=== PATIENT | female | born 1960 | race African-American/Black ===

== ENCOUNTER 2021-05-02 11:56 | Inpatient (IN) | payer MEDICAID ==
[~2021-05-02] VITALS: Ht 165.1 cm; Wt 79.4 kg
[2021-05-02] MEDS ORDERED: HYDRALAZINE 20MG/ML VIAL IV ONE (13:00)
[2021-05-02] MEDS ORDERED: NIFEDIPINE XL 90MG TAB PO ONE (13:00)
[2021-05-02] MEDS ORDERED: ACETAMINOPHEN 325MG TABLET PO ONE (13:00)
[2021-05-02 13:10] LABS: BASOPHILS % 1.2 % (0.0-2.0); EOSINOPHILS % 0.6 % (0.0-5.0); HEMATOCRIT. 35.7 % (36.0-48.0); HEMOGLOBIN. 11.4 g/dL (12.0-16.0); LYMPHOCYTES % 11.1 % (20.0-50.0); MEAN CORPUSCULAR HEMOGLOBIN 26.9 pg (28.0-32.0); MEAN CORPUSCULAR VOLUME 84.2 fL (81.0-99.0); MEAN PLATELET VOLUME 8.3 fl (7.4-10.4); MONOCYTES % 4.8 % (2.0-8.0); NEUTROPHILS % 82.3 % (40.0-76.0); PLATELET 367 x1000/uL (130-400); RED BLOOD CELL COUNT 4.24 mill/uL (4.2-5.4); RED CELL DISTRIBUTION WIDTH 15.5 % (11.6-14.6)
[2021-05-02 13:17] LABS: CHLORIDE 106 mEq/L (98-107)
[2021-05-02 13:20] LABS: PROTHROMBIN TIME 10.3 sec (9.6-11.0)
[2021-05-02] MEDS ORDERED: NITROGLYCERIN 50MG PREMIX 250 ML IV ONE (15:00)
[2021-05-02] MEDS: AZTREONAM 2 GM in DEXT 5% WATER 100 ML IV SCH (15:12)
[2021-05-02] MEDS: LINEZOLID 600 MG PREMIX 300 ML IV SCH (15:12)
[2021-05-02] MEDS ORDERED: MORPHINE SULFATE 4 MG/ML CPJ (NOT FOR IM USE) IV ONE (15:30)
[2021-05-02] MEDS ORDERED: INSULIN LISPRO 100 UNITS/ML SUBCUT SCH (22:15)
[2021-05-03] MEDS: PANTOPRAZOLE SODIUM 40 MG/VIAL IV SCH ×2 (00:02→09:23)
[2021-05-03] MEDS: MORPHINE SULFATE 2 MG/ML CPJ (NOT FOR IM USE) IV PRN (02:02)
[2021-05-03] MEDS: AZTREONAM 2 GM in DEXT 5% WATER 100 ML IV SCH (03:00)
[2021-05-03] MEDS: LINEZOLID 600 MG PREMIX 300 ML IV SCH (03:39)
[2021-05-03] MEDS: NITROGLYCERIN 50MG PREMIX 250 ML IV PRN ×2 (04:07→09:40)
[2021-05-03] MEDS ORDERED: ONDANSETRON HCL 4MG/2ML INJ IV ONE (07:15)
[2021-05-03] MEDS: CLONIDINE 0.2MG TABLET PO PRN ×2 (10:41→21:44)
[2021-05-03] MEDS ORDERED: ONDANSETRON HCL 4MG/2ML INJ IV PRN (10:45)
[2021-05-03] MEDS ORDERED: DEXTROSE 50% WATER 50ML SYRINGE IV PRN (10:45)
[2021-05-03] MEDS ORDERED: NA PHOS,M-B/NA PHOS,DI-BA ENEMA 118ML PR PRN (10:45)
[2021-05-03] MEDS ORDERED: LORAZEPAM 0.5MG TABLET PO PRN (10:45)
[2021-05-03] MEDS ORDERED: MAGNESIUM/ALUMINUM HYDROXIDE/SIMETHICONE 30ML UDC PO PRN (10:45)
[2021-05-03] MEDS ORDERED: ACETAMINOPHEN 650MG SUPP PR PRN (10:45)
[2021-05-03] MEDS: HEPARIN 5000 UNITS/ML VIAL SUBCUT SCH ×2 (11:00→21:46)
[2021-05-03] MEDS ORDERED: METRONIDAZOLE 500 MG PREMIX 100 ML IV SCH (11:00)
[2021-05-03] MEDS: BLOOD SUGAR DIAGNOSTIC STRIP TEST SCH ×3 (11:30→21:47)
[2021-05-03 14:27] LABS: BG BASE EXCESS 2.9 mmol/L (-2.0-2.0); BG CARBOXYHEMOGLOBIN 0.4 % (0.5-1.5); BG DEOXYHEMOGLOBIN 7.7 % (0.0-5.0); BG HCO3 ACT 27.7 mmol/L (22.0-26.0); BG METHEMOGLOBIN 0.5 % (0.0-1.5); BG OXYGEN SATURATION 92.2 % (92.0-98.5); BG OXYHEMOGLOBIN 91.4 % (94.0-97.0); BG PCO2 43.6 mmHg (35.0-45.0); BG PH 7.421 (7.350-7.450); BG PO2 64.6 mmHg (75.0-100.0); BG SAMPLE SITE LEFT RADIAL; BG TOTAL HEMOGLOBIN 9.8 g/dL (12.0-18.0); BG VENT MODE ROOM AIR
[2021-05-03 14:35] LABS: BASOPHILS % 1.5 % (0.0-2.0); EOSINOPHILS % 1.6 % (0.0-5.0); HEMATOCRIT. 26.8 % (36.0-48.0); HEMOGLOBIN. 8.8 g/dL (12.0-16.0); LYMPHOCYTES % 12.9 % (20.0-50.0); MEAN CORPUSCULAR HEMOGLOBIN 27.9 pg (28.0-32.0); MEAN CORPUSCULAR VOLUME 84.9 fL (81.0-99.0); MONOCYTES % 6.1 % (2.0-8.0); NEUTROPHILS % 77.9 % (40.0-76.0); PLATELET 284 x1000/uL (130-400); RED BLOOD CELL COUNT 3.16 mill/uL (4.2-5.4); RED CELL DISTRIBUTION WIDTH 15.2 % (11.6-14.6)
[2021-05-03 14:43] LABS: CHLORIDE 107 mEq/L (98-107)
[2021-05-03] MEDS ORDERED: NALOXONE HCL 0.4MG/ML VIAL IV PRN (14:45)
[2021-05-03 14:51] LABS: CREATINE KINASE 193 IU/L (26-192)
[2021-05-03 14:54] LABS: CREATINE KINASE MB FRACTION 3.7 ng/mL (0.5-3.6)
[2021-05-03 16:00] VITALS: BP_SYST 198; BP_DIAS 84; BP_DIAS 99
[2021-05-03] MEDS: HYDRALAZINE 20MG/ML VIAL IV PRN (16:52)
[2021-05-03] MEDS: DIPHENHYDRAMINE 50MG/ML VIAL IV PRN ×2 (16:52→21:44)
[2021-05-03] MEDS: INSULIN LISPRO 100 UNITS/ML SUBCUT SCH ×2 (16:53→21:48)
[2021-05-03] MEDS: ALBUTEROL 6.7GM HFA INHALER ORI SCH (18:00)
[2021-05-03 18:14] LABS: HEPATITIS B SURFACE ANTIGEN NEGATIVE
[2021-05-03] MEDS ORDERED: FOLI0.8T23 MT (18:47)
[2021-05-03] MEDS ORDERED: NIFE90TA60 PO (18:47)
[2021-05-03] MEDS ORDERED: GABA-529 MT (19:00)
[2021-05-03] MEDS ORDERED: ATOR20TA65 MT (19:00)
[2021-05-03] MEDS ORDERED: HYDR-4009 MT (19:00)
[2021-05-03] MEDS ORDERED: HYDR100T26 MT (19:00)
[2021-05-03] MEDS ORDERED: DILT30TA3 MT (19:00)
[2021-05-03] MEDS ORDERED: FERR325T6 MT (19:00)
[2021-05-03] MEDS ORDERED: CARI350T28 MT (19:00)
[2021-05-03] MEDS ORDERED: BENA40TA9 MT (19:00)
[2021-05-03 20:00] VITALS: BP 199/98
[2021-05-03] MEDS: METRONIDAZOLE 500 MG PREMIX 100 ML IV SCH (21:47)
[2021-05-04] VITALS: BP 162/78
[2021-05-04] MEDS: HYDRALAZINE 20MG/ML VIAL IV PRN ×2 (01:16→09:24)
[2021-05-04 02:22] LABS: CREATINE KINASE MB FRACTION 4.6 ng/mL (0.5-3.6)
[2021-05-04] MEDS: ALBUTEROL 6.7GM HFA INHALER ORI SCH (02:45)
[2021-05-04] MEDS: TEMAZEPAM 15MG CAPSULE PO PRN ×3 (03:37→21:30)
[2021-05-04 04:00] VITALS: BP 171/99
[2021-05-04] MEDS: IPRATROPIUM/ALBUTEROL 0.5-3(2.5)MG/3ML NEB HHN PRN ×3 (04:28→12:30)
[2021-05-04] MEDS: ACETYLCYSTEINE 100MG/ML 10% VIAL 4ML INH SCH ×3 (04:28→12:31)
[2021-05-04] MEDS: BLOOD SUGAR DIAGNOSTIC STRIP TEST SCH ×4 (06:19→21:27)
[2021-05-04] MEDS: INSULIN LISPRO 100 UNITS/ML SUBCUT SCH ×4 (06:20→21:19)
[2021-05-04 07:06] LABS: BASOPHILS % 1.4 % (0.0-2.0); EOSINOPHILS % 3.2 % (0.0-5.0); HEMATOCRIT. 28.5 % (36.0-48.0); HEMOGLOBIN. 9.3 g/dL (12.0-16.0); MEAN CORPUSCULAR VOLUME 85.8 fL (81.0-99.0); MEAN PLATELET VOLUME 8.8 fl (7.4-10.4); MONOCYTES % 8.3 % (2.0-8.0); NEUTROPHILS % 67.1 % (40.0-76.0); PLATELET 260 x1000/uL (130-400); RED BLOOD CELL COUNT 3.32 mill/uL (4.2-5.4)
[2021-05-04 07:30] LABS: CHLORIDE 108 mEq/L (98-107)
[2021-05-04 07:40] LABS: LDL CHOLESTEROL 72 mg/dL (5-100)
[2021-05-04 07:41] LABS: HDL CHOLESTEROL 41 mg/dL (40-59); T4 FREE 1.04 ng/dL (0.76-1.46)
[2021-05-04 08:00] VITALS: BP 195/87
[2021-05-04] MEDS: HEPARIN 5000 UNITS/ML VIAL SUBCUT SCH ×2 (08:34→21:31)
[2021-05-04] MEDS: PANTOPRAZOLE SODIUM 40 MG/VIAL IV SCH (08:34)
[2021-05-04] MEDS: CLONIDINE 0.2MG TABLET PO PRN (08:35)
[2021-05-04] MEDS: METRONIDAZOLE 500 MG PREMIX 100 ML IV SCH ×2 (08:35→21:30)
[2021-05-04] MEDS: DIPHENHYDRAMINE 50MG/ML VIAL IV PRN ×3 (08:48→21:31)
[2021-05-04] MEDS ORDERED: ASPIRIN 81MG EC TABLET PO SCH (09:00)
[2021-05-04 11:49] VITALS: BP 181/91
[2021-05-04] MEDS: NIFEDIPINE XL 90MG TAB PO SCH (12:21)
[2021-05-04] MEDS: BENAZEPRIL 10MG TABLET PO SCH (12:21)
[2021-05-04] MEDS: HYDRALAZINE HCL 100MG TABLET PO SCH ×2 (13:12→21:30)
[2021-05-04 16:00] VITALS: BP 153/69
[2021-05-04] MEDS: NITROGLYCERIN OINT 1GM/INCH UDPKT TD SCH ×2 (16:14→21:52)
[2021-05-04] MEDS: MORPHINE SULFATE 2 MG/ML CPJ (NOT FOR IM USE) IV PRN (16:14)
[2021-05-04] MEDS ORDERED: LEVOFLOXACIN 500MG PREMIX 100 ML IV NR (18:00)
[2021-05-04 20:00] VITALS: BP 201/90
[2021-05-04] MEDS: DILTIAZEM HCL 30MG TABLET PO SCH (21:30)
[2021-05-05] VITALS: BP 159/66
[2021-05-05] MEDS: IPRATROPIUM/ALBUTEROL 0.5-3(2.5)MG/3ML NEB HHN PRN ×4 (00:12→21:01)
[2021-05-05] MEDS: ACETYLCYSTEINE 100MG/ML 10% VIAL 4ML INH SCH ×3 (00:12→13:09)
[2021-05-05] MEDS: ALBUTEROL 6.7GM HFA INHALER ORI SCH (00:12)
[2021-05-05] MEDS: HYDROCODONE/ACETAMINOPHEN 5/325MG TABLET PO PRN ×2 (00:27→12:36)
[2021-05-05 04:00] VITALS: BP 174/72
[2021-05-05] MEDS: MORPHINE SULFATE 2 MG/ML CPJ (NOT FOR IM USE) IV PRN ×3 (04:28→21:40)
[2021-05-05] MEDS: INSULIN LISPRO 100 UNITS/ML SUBCUT SCH ×4 (06:55→22:54)
[2021-05-05] MEDS: BLOOD SUGAR DIAGNOSTIC STRIP TEST SCH ×4 (06:55→21:23)
[2021-05-05] MEDS: HYDRALAZINE HCL 100MG TABLET PO SCH ×3 (06:55→22:25)
[2021-05-05] MEDS: NITROGLYCERIN OINT 1GM/INCH UDPKT TD SCH ×3 (06:55→22:25)
[2021-05-05 07:11] LABS: BASOPHILS % 1.3 % (0.0-2.0); EOSINOPHILS % 2.6 % (0.0-5.0); HEMOGLOBIN. 9.1 g/dL (12.0-16.0); LYMPHOCYTES % 12.6 % (20.0-50.0); MEAN CORPUSCULAR HEMOGLOBIN 28.3 pg (28.0-32.0); MEAN CORPUSCULAR VOLUME 86.6 fL (81.0-99.0); MEAN PLATELET VOLUME 8.7 fl (7.4-10.4); MONOCYTES % 8.7 % (2.0-8.0); NEUTROPHILS % 74.8 % (40.0-76.0); PLATELET 247 x1000/uL (130-400); RED BLOOD CELL COUNT 3.23 mill/uL (4.2-5.4); RED CELL DISTRIBUTION WIDTH 15.3 % (11.6-14.6)
[2021-05-05] MEDS: DIPHENHYDRAMINE 50MG/ML VIAL IV PRN ×3 (07:49→21:30)
[2021-05-05 08:00] VITALS: BP 181/74
[2021-05-05] MEDS: PANTOPRAZOLE SODIUM 40 MG/VIAL IV SCH (08:41)
[2021-05-05] MEDS: NIFEDIPINE XL 90MG TAB PO SCH (08:42)
[2021-05-05] MEDS: BENAZEPRIL 10MG TABLET PO SCH (08:42)
[2021-05-05] MEDS: CLONIDINE 0.2MG TABLET PO PRN (08:42)
[2021-05-05] MEDS: METRONIDAZOLE 500 MG PREMIX 100 ML IV SCH (08:42)
[2021-05-05] MEDS: DILTIAZEM HCL 30MG TABLET PO SCH ×4 (08:42→23:07)
[2021-05-05] MEDS: HEPARIN 5000 UNITS/ML VIAL SUBCUT SCH ×2 (09:00→21:30)
[2021-05-05] MEDS ORDERED: SODIUM BICARBONATE 4% (2.4MEQ) 5ML VIAL IV ONE (09:58)
[2021-05-05 12:00] VITALS: BP 165/77
[2021-05-05] MEDS: DOCUSATE SODIUM 100MG CAPSULE PO PRN (12:36)
[2021-05-05 16:00] VITALS: BP 123/49
[2021-05-05 20:00] VITALS: BP 128/74
[2021-05-05] MEDS: METRONIDAZOLE 500MG TABLET PO SCH (21:27)
[2021-05-06] VITALS: BP 143/62
[2021-05-06] MEDS: ALBUTEROL 6.7GM HFA INHALER ORI SCH (02:32)
[2021-05-06] MEDS: DIPHENHYDRAMINE 50MG/ML VIAL IV PRN ×4 (02:39→21:46)
[2021-05-06] MEDS: TEMAZEPAM 15MG CAPSULE PO PRN (03:03)
[2021-05-06 04:00] VITALS: BP 149/68
[2021-05-06] MEDS: DILTIAZEM HCL 30MG TABLET PO SCH ×3 (05:51→18:54)
[2021-05-06] MEDS: HYDRALAZINE HCL 100MG TABLET PO SCH ×3 (05:52→21:10)
[2021-05-06] MEDS: NITROGLYCERIN OINT 1GM/INCH UDPKT TD SCH ×3 (05:52→23:11)
[2021-05-06] MEDS: BLOOD SUGAR DIAGNOSTIC STRIP TEST SCH ×4 (06:44→21:30)
[2021-05-06] MEDS: INSULIN LISPRO 100 UNITS/ML SUBCUT SCH ×4 (06:44→22:03)
[2021-05-06 08:00] VITALS: BP 138/81
[2021-05-06] MEDS: IPRATROPIUM/ALBUTEROL 0.5-3(2.5)MG/3ML NEB HHN PRN ×2 (08:49→14:52)
[2021-05-06] MEDS: ACETYLCYSTEINE 100MG/ML 10% VIAL 4ML INH SCH ×2 (08:49→14:52)
[2021-05-06] MEDS: MORPHINE SULFATE 2 MG/ML CPJ (NOT FOR IM USE) IV PRN ×2 (09:56→17:32)
[2021-05-06] MEDS: HEPARIN 5000 UNITS/ML VIAL SUBCUT SCH ×2 (09:58→21:15)
[2021-05-06] MEDS: METRONIDAZOLE 500MG TABLET PO SCH ×2 (09:59→21:24)
[2021-05-06] MEDS: BENAZEPRIL 10MG TABLET PO SCH (10:00)
[2021-05-06] MEDS: FAMOTIDINE 20MG/2ML VIAL IV SCH (10:00)
[2021-05-06 10:01] LABS: BASOPHILS % 0.9 % (0.0-2.0); EOSINOPHILS % 1.9 % (0.0-5.0); HEMATOCRIT. 29.1 % (36.0-48.0); HEMOGLOBIN. 9.3 g/dL (12.0-16.0); LYMPHOCYTES % 14.8 % (20.0-50.0); MEAN CORPUSCULAR HEMOGLOBIN 27.6 pg (28.0-32.0); MEAN PLATELET VOLUME 8.7 fl (7.4-10.4); NEUTROPHILS % 76.4 % (40.0-76.0); PLATELET 274 x1000/uL (130-400); RED BLOOD CELL COUNT 3.39 mill/uL (4.2-5.4); RED CELL DISTRIBUTION WIDTH 15.2 % (11.6-14.6)
[2021-05-06 12:00] VITALS: BP 158/85
[2021-05-06 16:00] VITALS: BP 188/90
[2021-05-06 16:01] LABS: HEPATITIS B SURFACE ANTIGEN NEGATIVE
[2021-05-06] MEDS: HYDRALAZINE 20MG/ML VIAL IV PRN (17:39)
[2021-05-06] MEDS ORDERED: LEVOFLOXACIN 250MG PREMIX 50 ML IV SCH (18:00)
[2021-05-06] MEDS: LEVOFLOXACIN 250MG TABLET PO SCH (18:55)
[2021-05-06 20:00] VITALS: BP 195/87
[2021-05-06] MEDS: CLONIDINE 0.2MG TABLET PO SCH (21:08)
[2021-05-06] MEDS: GUAIFENESIN 200MG/10ML SUGAR FREE UDC PO PRN (22:09)
[2021-05-07] VITALS: BP 180/88
[2021-05-07] MEDS: DILTIAZEM HCL 30MG TABLET PO SCH ×2 (00:14→07:46)
[2021-05-07] MEDS: ACETYLCYSTEINE 100MG/ML 10% VIAL 4ML INH SCH ×5 (01:03→21:35)
[2021-05-07] MEDS: IPRATROPIUM/ALBUTEROL 0.5-3(2.5)MG/3ML NEB HHN PRN ×4 (01:04→15:13)
[2021-05-07] MEDS: NITROGLYCERIN OINT 1GM/INCH UDPKT TD SCH ×3 (02:33→21:40)
[2021-05-07 04:00] VITALS: BP 180/90
[2021-05-07] MEDS: CLONIDINE 0.2MG TABLET PO SCH ×3 (06:05→21:35)
[2021-05-07] MEDS: BLOOD SUGAR DIAGNOSTIC STRIP TEST SCH ×4 (06:27→21:39)
[2021-05-07] MEDS: INSULIN LISPRO 100 UNITS/ML SUBCUT SCH ×4 (06:32→21:37)
[2021-05-07] MEDS: HYDRALAZINE HCL 100MG TABLET PO SCH ×3 (07:47→21:43)
[2021-05-07 08:00] VITALS: BP 176/86
[2021-05-07] MEDS: METRONIDAZOLE 500MG TABLET PO SCH ×2 (09:08→21:35)
[2021-05-07] MEDS: BENAZEPRIL 10MG TABLET PO SCH (09:18)
[2021-05-07] MEDS: HEPARIN 5000 UNITS/ML VIAL SUBCUT SCH ×2 (09:18→21:38)
[2021-05-07] MEDS: FAMOTIDINE 20MG/2ML VIAL IV SCH (09:19)
[2021-05-07] MEDS ORDERED: AMLODIPINE 5MG TABLET PO SCH (10:30)
[2021-05-07] MEDS: DIPHENHYDRAMINE 50MG/ML VIAL IV PRN ×3 (10:49→21:05)
[2021-05-07 12:00] VITALS: BP 159/75
[2021-05-07 16:00] VITALS: BP 181/79
[2021-05-07] MEDS: HYDRALAZINE 20MG/ML VIAL IV PRN (17:54)
[2021-05-07] MEDS ORDERED: BENZONATATE 100MG CAPSULE PO PRN (18:30)
[2021-05-07 20:00] VITALS: BP 169/78
[2021-05-07] MEDS: HYDROCODONE/ACETAMINOPHEN 5/325MG TABLET PO PRN (21:08)
[2021-05-07] MEDS: GUAIFENESIN 600MG ER TABLET PO SCH (21:48)
[2021-05-07] MEDS: TEMAZEPAM 15MG CAPSULE PO PRN (23:02)
[2021-05-08] VITALS: BP 156/82
[2021-05-08] MEDS: IPRATROPIUM/ALBUTEROL 0.5-3(2.5)MG/3ML NEB HHN PRN ×3 (01:29→16:00)
[2021-05-08 01:53] LABS: HEPATITIS B SURFACE ANTIGEN NEGATIVE
[2021-05-08 04:00] VITALS: BP 190/82
[2021-05-08] MEDS: HYDRALAZINE HCL 100MG TABLET PO SCH ×2 (06:13→13:37)
[2021-05-08] MEDS: CLONIDINE 0.2MG TABLET PO SCH (06:13)
[2021-05-08] MEDS: NITROGLYCERIN OINT 1GM/INCH UDPKT TD SCH ×2 (06:15→13:38)
[2021-05-08] MEDS: INSULIN LISPRO 100 UNITS/ML SUBCUT SCH ×4 (06:26→21:55)
[2021-05-08] MEDS: BLOOD SUGAR DIAGNOSTIC STRIP TEST SCH ×4 (07:10→21:20)
[2021-05-08 08:00] VITALS: BP 188/88
[2021-05-08] MEDS: ACETYLCYSTEINE 100MG/ML 10% VIAL 4ML INH SCH ×2 (08:23→16:00)
[2021-05-08] MEDS: CLONIDINE 0.2MG TABLET PO PRN (09:42)
[2021-05-08] MEDS: BENAZEPRIL 10MG TABLET PO SCH (09:42)
[2021-05-08] MEDS: METRONIDAZOLE 500MG TABLET PO SCH ×2 (09:42→21:19)
[2021-05-08] MEDS: GUAIFENESIN 600MG ER TABLET PO SCH ×2 (09:42→21:19)
[2021-05-08] MEDS: DIPHENHYDRAMINE 50MG/ML VIAL IV PRN ×2 (09:43→21:19)
[2021-05-08] MEDS: FAMOTIDINE 20MG/2ML VIAL IV SCH (09:43)
[2021-05-08] MEDS: HEPARIN 5000 UNITS/ML VIAL SUBCUT SCH ×2 (09:43→21:20)
[2021-05-08] MEDS ORDERED: AMLODIPINE 5MG TABLET PO SCH (09:45)
[2021-05-08] MEDS: HYDROCODONE/ACETAMINOPHEN 5/325MG TABLET PO PRN (09:56)
[2021-05-08 12:00] VITALS: BP 210/100
[2021-05-08] MEDS: LOSARTAN POTASSIUM 100 MG TABLET PO SCH (12:24)
[2021-05-08] MEDS: DILTIAZEM HCL 90MG TABLET PO SCH ×2 (12:24→18:00)
[2021-05-08] MEDS ORDERED: GABAPENTIN 100MG CAPSULE PO NR (13:15)
[2021-05-08] MEDS: CLONIDINE 0.3MG TABLET PO SCH (13:37)
[2021-05-08 16:00] VITALS: BP 140/64
[2021-05-08] MEDS: LEVOFLOXACIN 250MG TABLET PO SCH (18:09)
[2021-05-08 20:00] VITALS: BP 165/69
[2021-05-08] MEDS: ACETAMINOPHEN 325MG TABLET PO PRN (21:26)
[2021-05-08] MEDS: TEMAZEPAM 15MG CAPSULE PO PRN (21:26)
[2021-05-08] MEDS: HYDRALAZINE 20MG/ML VIAL IV PRN (21:34)
[2021-05-09] VITALS (8 sets, daily range): BP systolic 98–207; BP diastolic 52–90
[2021-05-09] MEDS: CLONIDINE 0.3MG TABLET PO SCH ×3 (03:12→14:51)
[2021-05-09] MEDS: NITROGLYCERIN OINT 1GM/INCH UDPKT TD SCH ×4 (03:13→20:54)
[2021-05-09] MEDS: HYDRALAZINE HCL 100MG TABLET PO SCH ×3 (03:16→14:52)
[2021-05-09] MEDS: DILTIAZEM HCL 90MG TABLET PO SCH ×4 (04:39→17:50)
[2021-05-09] MEDS: ACETAMINOPHEN 325MG TABLET PO PRN (04:56)
[2021-05-09] MEDS: HYDRALAZINE 20MG/ML VIAL IV PRN (05:47)
[2021-05-09] MEDS: BLOOD SUGAR DIAGNOSTIC STRIP TEST SCH ×4 (06:18→20:54)
[2021-05-09] MEDS: INSULIN LISPRO 100 UNITS/ML SUBCUT SCH ×4 (06:20→21:27)
[2021-05-09] MEDS ORDERED: MINOXIDIL 2.5MG TABLET PO SCH (06:45)
[2021-05-09] MEDS: MORPHINE SULFATE 2 MG/ML CPJ (NOT FOR IM USE) IV PRN ×4 (06:59→23:34)
[2021-05-09] MEDS: FAMOTIDINE 20MG TABLET PO SCH (09:08)
[2021-05-09] MEDS: BENAZEPRIL 10MG TABLET PO SCH (09:08)
[2021-05-09] MEDS: GUAIFENESIN 600MG ER TABLET PO SCH ×2 (09:08→20:53)
[2021-05-09] MEDS: LOSARTAN POTASSIUM 100 MG TABLET PO SCH (09:08)
[2021-05-09] MEDS: HEPARIN 5000 UNITS/ML VIAL SUBCUT SCH ×2 (09:11→20:53)
[2021-05-09] MEDS: DIPHENHYDRAMINE 50MG/ML VIAL IV PRN ×2 (12:39→23:28)
[2021-05-09] MEDS: GABAPENTIN 300MG CAPSULE PO SCH ×2 (14:51→20:53)
[2021-05-09] MEDS: MINOXIDIL 2.5MG TABLET PO SCH (14:51)
[2021-05-10] VITALS (7 sets, daily range): BP systolic 100–175; BP diastolic 44–79
[2021-05-10] MEDS: MINOXIDIL 2.5MG TABLET PO SCH ×4 (00:20→21:32)
[2021-05-10] MEDS: HYDRALAZINE HCL 100MG TABLET PO SCH ×4 (00:20→21:49)
[2021-05-10] MEDS: CLONIDINE 0.3MG TABLET PO SCH ×4 (00:21→21:49)
[2021-05-10] MEDS: NITROGLYCERIN OINT 1GM/INCH UDPKT TD SCH ×3 (05:55→21:25)
[2021-05-10] MEDS: DILTIAZEM HCL 90MG TABLET PO SCH ×2 (05:56)
[2021-05-10] MEDS: GABAPENTIN 300MG CAPSULE PO SCH ×3 (05:57→21:30)
[2021-05-10] MEDS: BLOOD SUGAR DIAGNOSTIC STRIP TEST SCH ×4 (06:06→21:38)
[2021-05-10] MEDS: INSULIN LISPRO 100 UNITS/ML SUBCUT SCH ×4 (06:07→21:53)
[2021-05-10] MEDS: FAMOTIDINE 20MG TABLET PO SCH (10:06)
[2021-05-10] MEDS: BENAZEPRIL 10MG TABLET PO SCH (10:07)
[2021-05-10] MEDS: GUAIFENESIN 600MG ER TABLET PO SCH ×2 (10:08→21:31)
[2021-05-10] MEDS: LOSARTAN POTASSIUM 100 MG TABLET PO SCH (10:08)
[2021-05-10] MEDS: HEPARIN 5000 UNITS/ML VIAL SUBCUT SCH ×2 (10:09→21:29)
[2021-05-10] MEDS: DILTIAZEM HCL 180MG CAPSULE CD 24HR PO SCH ×2 (10:19→21:31)
[2021-05-10] MEDS: DIPHENHYDRAMINE 50MG/ML VIAL IV PRN ×2 (10:19→21:44)
[2021-05-10 12:19] LABS: BASOPHILS % 1.3 % (0.0-2.0); EOSINOPHILS % 1.4 % (0.0-5.0); HEMATOCRIT. 28.6 % (36.0-48.0); HEMOGLOBIN. 9.1 g/dL (12.0-16.0); LYMPHOCYTES % 9.8 % (20.0-50.0); MEAN CORPUSCULAR HEMOGLOBIN 27.5 pg (28.0-32.0); MEAN CORPUSCULAR VOLUME 86.5 fL (81.0-99.0); MONOCYTES % 5.8 % (2.0-8.0); NEUTROPHILS % 81.7 % (40.0-76.0); PLATELET 272 x1000/uL (130-400); RED CELL DISTRIBUTION WIDTH 15.1 % (11.6-14.6)
[2021-05-10] MEDS: HYDROCODONE/ACETAMINOPHEN 5/325MG TABLET PO PRN ×2 (15:45→21:30)
[2021-05-10] MEDS ORDERED: HEPARIN SODIUM 1,000 UNIT/1ML VIAL IV NR (16:34)
[2021-05-11] VITALS: BP 102/46
[2021-05-11] MEDS: HYDROCODONE/ACETAMINOPHEN 5/325MG TABLET PO PRN ×2 (02:42→21:02)
[2021-05-11] MEDS: DIPHENHYDRAMINE 50MG/ML VIAL IV PRN ×3 (02:59→20:55)
[2021-05-11] MEDS ORDERED: MORPHINE SULFATE 2 MG/ML CPJ (NOT FOR IM USE) IV PRN (03:30)
[2021-05-11 06:48] LABS: EOSINOPHILS % 1.7 % (0.0-5.0); HEMATOCRIT. 27.7 % (36.0-48.0); HEMOGLOBIN. 8.9 g/dL (12.0-16.0); LYMPHOCYTES % 16.5 % (20.0-50.0); MEAN CORPUSCULAR HEMOGLOBIN 27.4 pg (28.0-32.0); MEAN CORPUSCULAR VOLUME 85.5 fL (81.0-99.0); MEAN PLATELET VOLUME 9.3 fl (7.4-10.4); MONOCYTES % 8.5 % (2.0-8.0); NEUTROPHILS % 72.3 % (40.0-76.0); PLATELET 272 x1000/uL (130-400); RED BLOOD CELL COUNT 3.24 mill/uL (4.2-5.4); RED CELL DISTRIBUTION WIDTH 15.3 % (11.6-14.6)
[2021-05-11] MEDS: CLONIDINE 0.3MG TABLET PO SCH (06:57)
[2021-05-11] MEDS: HYDRALAZINE HCL 100MG TABLET PO SCH ×3 (06:57→22:00)
[2021-05-11] MEDS: MINOXIDIL 2.5MG TABLET PO SCH ×3 (06:58→22:23)
[2021-05-11] MEDS: BLOOD SUGAR DIAGNOSTIC STRIP TEST SCH ×4 (06:58→21:00)
[2021-05-11] MEDS: NITROGLYCERIN OINT 1GM/INCH UDPKT TD SCH (07:02)
[2021-05-11] MEDS: GABAPENTIN 300MG CAPSULE PO SCH ×3 (07:04→22:24)
[2021-05-11] MEDS: INSULIN LISPRO 100 UNITS/ML SUBCUT SCH ×4 (07:05→22:27)
[2021-05-11 08:00] VITALS: BP 111/46
[2021-05-11] MEDS: DOCUSATE SODIUM 100MG CAPSULE PO PRN (09:24)
[2021-05-11] MEDS: HEPARIN 5000 UNITS/ML VIAL SUBCUT SCH ×2 (09:24→22:25)
[2021-05-11] MEDS: GUAIFENESIN 600MG ER TABLET PO SCH ×2 (09:24→22:21)
[2021-05-11] MEDS: BENAZEPRIL 10MG TABLET PO SCH (09:25)
[2021-05-11] MEDS: LOSARTAN POTASSIUM 100 MG TABLET PO SCH (09:26)
[2021-05-11] MEDS: FAMOTIDINE 20MG TABLET PO SCH (09:26)
[2021-05-11] MEDS: DILTIAZEM HCL 180MG CAPSULE CD 24HR PO SCH ×2 (09:28→21:00)
[2021-05-11 12:00] VITALS: BP 132/54
[2021-05-11 16:00] VITALS: BP 106/42
[2021-05-11] MEDS ORDERED: CLONIDINE 0.3MG TABLET PO SCH (17:00)
[2021-05-11] MEDS ORDERED: INSULIN GLARGINE UD 100 UNITS/ML SYR SUBCUT NR (18:00)
[2021-05-11 20:00] VITALS: BP 104/46
[2021-05-11] MEDS: EPOETIN ALFA-EPBX 10,000 UNIT/ML VIAL SUBCUT SCH (22:23)
[2021-05-11] MEDS: INSULIN GLARGINE UD 100 UNITS/ML SYR SUBCUT SCH (22:28)
[2021-05-11] MEDS: TEMAZEPAM 15MG CAPSULE PO PRN (22:58)
[2021-05-12] VITALS (7 sets, daily range): BP systolic 103–136; BP diastolic 41–67
[2021-05-12 02:25] LABS: HEPATITIS B SURFACE ANTIGEN NEGATIVE
[2021-05-12] MEDS: DIPHENHYDRAMINE 50MG/ML VIAL IV PRN ×4 (02:58→23:07)
[2021-05-12] MEDS: HYDROCODONE/ACETAMINOPHEN 5/325MG TABLET PO PRN ×3 (03:18→14:04)
[2021-05-12] MEDS: GABAPENTIN 300MG CAPSULE PO SCH ×3 (06:09→22:56)
[2021-05-12] MEDS: BLOOD SUGAR DIAGNOSTIC STRIP TEST SCH ×4 (06:09→21:00)
[2021-05-12] MEDS: MINOXIDIL 2.5MG TABLET PO SCH ×3 (06:09→22:56)
[2021-05-12] MEDS: HYDRALAZINE HCL 100MG TABLET PO SCH (06:09)
[2021-05-12] MEDS: INSULIN LISPRO 100 UNITS/ML SUBCUT SCH ×4 (06:29→21:17)
[2021-05-12] MEDS: CLONIDINE 0.2MG TABLET PO SCH ×2 (09:00→22:56)
[2021-05-12] MEDS: DILTIAZEM HCL 180MG CAPSULE CD 24HR PO SCH ×2 (09:00→22:57)
[2021-05-12] MEDS: LOSARTAN POTASSIUM 100 MG TABLET PO SCH (09:00)
[2021-05-12] MEDS: GUAIFENESIN 600MG ER TABLET PO SCH ×2 (09:14→22:57)
[2021-05-12] MEDS: HEPARIN 5000 UNITS/ML VIAL SUBCUT SCH ×2 (09:15→22:56)
[2021-05-12] MEDS: FAMOTIDINE 20MG TABLET PO SCH (09:15)
[2021-05-12] MEDS: INSULIN GLARGINE UD 100 UNITS/ML SYR SUBCUT SCH ×2 (09:16→21:17)
[2021-05-12] MEDS: HYDRALAZINE HCL 50MG TABLET PO SCH ×2 (13:58→22:56)
[2021-05-12] MEDS: LOSARTAN POTASSIUM 50 MG TABLET PO SCH (17:00)
[2021-05-12] MEDS: ACETAMINOPHEN 325MG TABLET PO PRN (21:14)
[2021-05-12] MEDS: IPRATROPIUM/ALBUTEROL 0.5-3(2.5)MG/3ML NEB HHN PRN (21:36)
[2021-05-13] VITALS (7 sets, daily range): BP systolic 102–175; BP diastolic 48–78
[2021-05-13] MEDS: HYDROCODONE/ACETAMINOPHEN 5/325MG TABLET PO PRN ×3 (01:58→11:01)
[2021-05-13] MEDS: BLOOD SUGAR DIAGNOSTIC STRIP TEST SCH ×4 (05:34→21:00)
[2021-05-13] MEDS: HYDRALAZINE HCL 50MG TABLET PO SCH ×3 (05:36→22:00)
[2021-05-13] MEDS: MINOXIDIL 2.5MG TABLET PO SCH ×3 (05:36→22:01)
[2021-05-13] MEDS: DIPHENHYDRAMINE 50MG/ML VIAL IV PRN ×3 (05:42→21:59)
[2021-05-13] MEDS: GABAPENTIN 300MG CAPSULE PO SCH ×3 (05:47→22:00)
[2021-05-13] MEDS: INSULIN LISPRO 100 UNITS/ML SUBCUT SCH ×4 (05:55→22:24)
[2021-05-13] MEDS: GUAIFENESIN 600MG ER TABLET PO SCH ×2 (08:19→22:06)
[2021-05-13] MEDS: FAMOTIDINE 20MG TABLET PO SCH (08:19)
[2021-05-13] MEDS: LOSARTAN POTASSIUM 50 MG TABLET PO SCH (08:20)
[2021-05-13] MEDS: CLONIDINE 0.2MG TABLET PO SCH ×2 (08:20→22:01)
[2021-05-13] MEDS: DILTIAZEM HCL 180MG CAPSULE CD 24HR PO SCH (08:20)
[2021-05-13] MEDS: HEPARIN 5000 UNITS/ML VIAL SUBCUT SCH ×2 (08:22→21:59)
[2021-05-13] MEDS: INSULIN GLARGINE UD 100 UNITS/ML SYR SUBCUT SCH ×2 (10:57→22:22)
[2021-05-13] MEDS ORDERED: NALOXONE HCL 0.4MG/ML VIAL IV PRN (18:30)
[2021-05-13] MEDS: EPOETIN ALFA-EPBX 10,000 UNIT/ML VIAL SUBCUT SCH (21:59)
[2021-05-13] MEDS: LOSARTAN POTASSIUM 25 MG TABLET PO SCH (22:00)
[2021-05-13] MEDS: DILTIAZEM HCL 120MG CAPSULE CD 24HR PO SCH (22:00)
[2021-05-14] VITALS: BP 114/78
[2021-05-14] MEDS: HYDROCODONE/ACETAMINOPHEN 5/325MG TABLET PO PRN ×3 (00:07→11:24)
[2021-05-14] MEDS: DIPHENHYDRAMINE 50MG/ML VIAL IV PRN ×4 (02:49→22:37)
[2021-05-14] MEDS: ACETAMINOPHEN 325MG TABLET PO PRN (02:50)
[2021-05-14 04:00] VITALS: BP 109/57
[2021-05-14] MEDS: HYDRALAZINE HCL 50MG TABLET PO SCH ×3 (05:03→22:23)
[2021-05-14] MEDS: BLOOD SUGAR DIAGNOSTIC STRIP TEST SCH ×4 (05:04→21:00)
[2021-05-14] MEDS: MINOXIDIL 2.5MG TABLET PO SCH ×3 (05:04→22:24)
[2021-05-14] MEDS: GABAPENTIN 300MG CAPSULE PO SCH ×3 (05:05→22:23)
[2021-05-14] MEDS: INSULIN LISPRO 100 UNITS/ML SUBCUT SCH ×4 (05:18→22:27)
[2021-05-14 07:28] LABS: BASOPHILS % 1.4 % (0.0-2.0); EOSINOPHILS % 1.8 % (0.0-5.0); HEMOGLOBIN. 7.4 g/dL (12.0-16.0); LYMPHOCYTES % 17.9 % (20.0-50.0); MEAN CORPUSCULAR HEMOGLOBIN 27.6 pg (28.0-32.0); MEAN CORPUSCULAR VOLUME 86.2 fL (81.0-99.0); MONOCYTES % 12.3 % (2.0-8.0); NEUTROPHILS % 66.6 % (40.0-76.0); PLATELET 227 x1000/uL (130-400); RED BLOOD CELL COUNT 2.66 mill/uL (4.2-5.4); RED CELL DISTRIBUTION WIDTH 14.9 % (11.6-14.6)
[2021-05-14 08:00] VITALS: BP 108/55
[2021-05-14] MEDS: DILTIAZEM HCL 120MG CAPSULE CD 24HR PO SCH ×2 (09:00→22:23)
[2021-05-14] MEDS: CLONIDINE 0.2MG TABLET PO SCH ×2 (09:00→22:23)
[2021-05-14] MEDS: LOSARTAN POTASSIUM 25 MG TABLET PO SCH ×2 (09:00→22:23)
[2021-05-14] MEDS: HEPARIN 5000 UNITS/ML VIAL SUBCUT SCH (09:57)
[2021-05-14] MEDS: GUAIFENESIN 600MG ER TABLET PO SCH ×2 (09:57→22:23)
[2021-05-14] MEDS: FAMOTIDINE 20MG TABLET PO SCH (09:58)
[2021-05-14] MEDS: INSULIN GLARGINE UD 100 UNITS/ML SYR SUBCUT SCH ×2 (10:07→22:25)
[2021-05-14 12:00] VITALS: BP 153/61
[2021-05-14] MEDS: CYCLOBENZAPRINE 10MG TABLET PO PRN (12:35)
[2021-05-14 16:00] VITALS: BP 155/63
[2021-05-14] MEDS: IPRATROPIUM/ALBUTEROL 0.5-3(2.5)MG/3ML NEB HHN PRN (17:21)
[2021-05-14 17:52] LABS: HEMATOCRIT 25.3 % (36.0-48.0); HEMOGLOBIN 8.3 g/dL (12.0-16.0)
[2021-05-14 18:04] LABS: CREATINE KINASE MB FRACTION 4.4 ng/mL (0.5-3.6)
[2021-05-14] MEDS: MORPHINE SULFATE 2 MG/ML CPJ (NOT FOR IM USE) IV PRN (18:56)
[2021-05-14 20:00] VITALS: BP 130/57
[2021-05-15] VITALS (11 sets, daily range): BP systolic 98–184; BP diastolic 46–89
[2021-05-15] MEDS: MORPHINE SULFATE 2 MG/ML CPJ (NOT FOR IM USE) IV PRN ×2 (02:31→20:50)
[2021-05-15] MEDS: DIPHENHYDRAMINE 50MG/ML VIAL IV PRN ×3 (03:29→16:41)
[2021-05-15] MEDS: GABAPENTIN 300MG CAPSULE PO SCH ×3 (06:06→22:32)
[2021-05-15] MEDS: INSULIN LISPRO 100 UNITS/ML SUBCUT SCH ×4 (06:06→21:00)
[2021-05-15] MEDS: BLOOD SUGAR DIAGNOSTIC STRIP TEST SCH ×4 (06:06→21:50)
[2021-05-15 07:01] LABS: BASOPHILS % 0.8 % (0.0-2.0); HEMATOCRIT. 21.4 % (36.0-48.0); LYMPHOCYTES % 14.5 % (20.0-50.0); MEAN CORPUSCULAR HEMOGLOBIN 28.2 pg (28.0-32.0); MEAN CORPUSCULAR VOLUME 86.6 fL (81.0-99.0); MONOCYTES % 12.9 % (2.0-8.0); NEUTROPHILS % 69.8 % (40.0-76.0); PLATELET 255 x1000/uL (130-400); RED BLOOD CELL COUNT 2.47 mill/uL (4.2-5.4)
[2021-05-15] MEDS: DILTIAZEM HCL 120MG CAPSULE CD 24HR PO SCH ×2 (09:00→20:49)
[2021-05-15] MEDS: CLONIDINE 0.2MG TABLET PO SCH (09:00)
[2021-05-15] MEDS: LOSARTAN POTASSIUM 25 MG TABLET PO SCH ×2 (09:00→20:50)
[2021-05-15] MEDS: FAMOTIDINE 20MG TABLET PO SCH (10:13)
[2021-05-15] MEDS: INSULIN GLARGINE UD 100 UNITS/ML SYR SUBCUT SCH ×2 (10:15→22:35)
[2021-05-15] MEDS: HYDROCODONE/ACETAMINOPHEN 5/325MG TABLET PO PRN (10:26)
[2021-05-15] MEDS: GUAIFENESIN 200MG/10ML SUGAR FREE UDC PO PRN (12:35)
[2021-05-15] MEDS: PANTOPRAZOLE 40MG DR TABLET PO SCH ×2 (12:38→20:50)
[2021-05-15] MEDS: MINOXIDIL 2.5MG TABLET PO SCH ×2 (14:00→22:33)
[2021-05-15 14:18] LABS: HEMATOCRIT 21.9 % (36.0-48.0); HEMOGLOBIN 7.1 g/dL (12.0-16.0)
[2021-05-15 14:53] LABS: CREATINE KINASE MB FRACTION 6.3 ng/mL (0.5-3.6)
[2021-05-15 20:07] LABS: TOTAL IRON BINDING CAPACITY 245 ug/dL (250-450)
[2021-05-15] MEDS: NITROGLYCERIN OINT 1GM/INCH UDPKT TD SCH (22:33)
[2021-05-16] VITALS (7 sets, daily range): BP systolic 130–160; BP diastolic 56–83
[2021-05-16] MEDS: DIPHENHYDRAMINE 50MG/ML VIAL IV PRN ×3 (00:05→21:44)
[2021-05-16] MEDS: TEMAZEPAM 15MG CAPSULE PO PRN (00:05)
[2021-05-16] MEDS: BLOOD SUGAR DIAGNOSTIC STRIP TEST SCH ×4 (05:58→21:00)
[2021-05-16] MEDS: INSULIN LISPRO 100 UNITS/ML SUBCUT SCH ×4 (05:59→21:00)
[2021-05-16] MEDS: MINOXIDIL 2.5MG TABLET PO SCH ×3 (06:20→21:43)
[2021-05-16] MEDS: GABAPENTIN 300MG CAPSULE PO SCH ×3 (06:20→21:40)
[2021-05-16] MEDS: PANTOPRAZOLE 40MG DR TABLET PO SCH ×2 (06:20→21:39)
[2021-05-16] MEDS: NITROGLYCERIN OINT 1GM/INCH UDPKT TD SCH ×2 (06:21→15:58)
[2021-05-16 06:43] LABS: BASOPHILS % 1.3 % (0.0-2.0); HEMATOCRIT. 23.1 % (36.0-48.0); HEMOGLOBIN. 7.8 g/dL (12.0-16.0); LYMPHOCYTES % 15.3 % (20.0-50.0); MEAN CORPUSCULAR HEMOGLOBIN 28.8 pg (28.0-32.0); MEAN CORPUSCULAR VOLUME 85.3 fL (81.0-99.0); MONOCYTES % 13.4 % (2.0-8.0); PLATELET 284 x1000/uL (130-400); RED BLOOD CELL COUNT 2.71 mill/uL (4.2-5.4); RED CELL DISTRIBUTION WIDTH 14.5 % (11.6-14.6)
[2021-05-16] MEDS: MORPHINE SULFATE 2 MG/ML CPJ (NOT FOR IM USE) IV PRN ×3 (07:07→19:09)
[2021-05-16 07:12] LABS: VITAMIN B12 SERUM 590 pg/mL (211-911)
[2021-05-16] MEDS: LOSARTAN POTASSIUM 25 MG TABLET PO SCH ×2 (08:38→21:40)
[2021-05-16] MEDS: DILTIAZEM HCL 120MG CAPSULE CD 24HR PO SCH ×2 (08:38→21:40)
[2021-05-16] MEDS: INSULIN GLARGINE UD 100 UNITS/ML SYR SUBCUT SCH ×2 (10:40→22:20)
[2021-05-16] MEDS: FERROUS SULFATE 325MG TABLET PO SCH ×2 (12:09→18:14)
[2021-05-16 16:17] LABS: HEMATOCRIT 26.4 % (36.0-48.0); HEMOGLOBIN 8.7 g/dL (12.0-16.0)
[2021-05-16 16:48] LABS: HEPATITIS B SURFACE ANTIGEN NEGATIVE
[2021-05-16] MEDS: CYCLOBENZAPRINE 10MG TABLET PO PRN (18:11)
[2021-05-17] VITALS: BP 138/61
[2021-05-17] MEDS: NITROGLYCERIN OINT 1GM/INCH UDPKT TD SCH ×4 (00:50→22:41)
[2021-05-17] MEDS: MORPHINE SULFATE 2 MG/ML CPJ (NOT FOR IM USE) IV PRN ×4 (00:52→22:13)
[2021-05-17] MEDS: DIPHENHYDRAMINE 50MG/ML VIAL IV PRN ×3 (02:48→22:10)
[2021-05-17] MEDS: DOCUSATE SODIUM 100MG CAPSULE PO PRN (03:01)
[2021-05-17] MEDS ORDERED: HYDROCODONE/ACETAMINOPHEN 5/325MG TABLET PO PRN ×2 (04:15→04:30)
[2021-05-17] MEDS ORDERED: TEMAZEPAM 15MG CAPSULE PO PRN (04:30)
[2021-05-17] MEDS: GABAPENTIN 300MG CAPSULE PO SCH ×3 (05:51→22:41)
[2021-05-17] MEDS: HYDROCODONE/ACETAMINOPHEN 5/325MG TABLET PO PRN (05:57)
[2021-05-17] MEDS: MINOXIDIL 2.5MG TABLET PO SCH ×3 (06:00→22:00)
[2021-05-17] MEDS: CYCLOBENZAPRINE 10MG TABLET PO PRN ×2 (06:10→22:52)
[2021-05-17 06:16] LABS: INR 0.9; PROTHROMBIN TIME 10.1 sec (9.6-11.0)
[2021-05-17 06:18] LABS: BASOPHILS % 1.2 % (0.0-2.0); EOSINOPHILS % 2.1 % (0.0-5.0); HEMATOCRIT. 23.3 % (36.0-48.0); HEMOGLOBIN. 7.9 g/dL (12.0-16.0); LYMPHOCYTES % 13.4 % (20.0-50.0); MEAN CORPUSCULAR HEMOGLOBIN 28.9 pg (28.0-32.0); MEAN CORPUSCULAR VOLUME 85.2 fL (81.0-99.0); MEAN PLATELET VOLUME 8.8 fl (7.4-10.4); MONOCYTES % 13.3 % (2.0-8.0); PLATELET 307 x1000/uL (130-400); RED BLOOD CELL COUNT 2.73 mill/uL (4.2-5.4); RED CELL DISTRIBUTION WIDTH 14.8 % (11.6-14.6)
[2021-05-17 06:50] LABS: FOLIC ACID (FOLATE) SERUM 8.1 ng/mL (>5.38)
[2021-05-17] MEDS: PANTOPRAZOLE 40MG DR TABLET PO SCH ×2 (07:10→22:41)
[2021-05-17] MEDS: BLOOD SUGAR DIAGNOSTIC STRIP TEST SCH ×4 (07:10→21:00)
[2021-05-17] MEDS: INSULIN LISPRO 100 UNITS/ML SUBCUT SCH ×4 (07:40→21:00)
[2021-05-17 08:00] VITALS: BP 132/60
[2021-05-17] MEDS: FERROUS SULFATE 325MG TABLET PO SCH ×3 (08:24→17:29)
[2021-05-17] MEDS: DILTIAZEM HCL 120MG CAPSULE CD 24HR PO SCH ×2 (08:24→22:40)
[2021-05-17] MEDS: LOSARTAN POTASSIUM 25 MG TABLET PO SCH ×2 (08:25→22:41)
[2021-05-17] MEDS: EPOETIN ALFA-EPBX 10,000 UNIT/ML VIAL SUBCUT SCH (09:46)
[2021-05-17] MEDS: INSULIN GLARGINE UD 100 UNITS/ML SYR SUBCUT SCH ×2 (09:47→22:46)
[2021-05-17 12:00] VITALS: BP 132/60
[2021-05-17] MEDS: ACETAMINOPHEN 325MG TABLET PO PRN (13:27)
[2021-05-17] MEDS ORDERED: MINO2.5T2 MT (14:39)
[2021-05-17] MEDS ORDERED: PROT40 MT (14:39)
[2021-05-17] MEDS ORDERED: LOSA50TA3 MT (14:39)
[2021-05-17] MEDS ORDERED: DILT120C88 MT (14:39)
[2021-05-17] MEDS ORDERED: HYDR-4001 MT (14:39)
[2021-05-17 16:00] VITALS: BP 140/70
[2021-05-17 16:22] LABS: HEMATOCRIT 24.6 % (36.0-48.0); HEMOGLOBIN 8.1 g/dL (12.0-16.0)
[2021-05-17 20:00] VITALS: BP 156/50
[2021-05-18] VITALS (7 sets, daily range): BP systolic 129–170; BP diastolic 49–73
[2021-05-18] MEDS: DIPHENHYDRAMINE 50MG/ML VIAL IV PRN ×3 (04:02→13:56)
[2021-05-18] MEDS: MORPHINE SULFATE 2 MG/ML CPJ (NOT FOR IM USE) IV PRN ×2 (04:10→09:37)
[2021-05-18] MEDS: MINOXIDIL 2.5MG TABLET PO SCH ×2 (06:44→13:44)
[2021-05-18] MEDS: GABAPENTIN 300MG CAPSULE PO SCH ×2 (06:44→13:44)
[2021-05-18] MEDS: PANTOPRAZOLE 40MG DR TABLET PO SCH (06:44)
[2021-05-18] MEDS: NITROGLYCERIN OINT 1GM/INCH UDPKT TD SCH ×2 (06:45→13:43)
[2021-05-18] MEDS: INSULIN LISPRO 100 UNITS/ML SUBCUT SCH ×2 (06:46→13:46)
[2021-05-18] MEDS: BLOOD SUGAR DIAGNOSTIC STRIP TEST SCH ×2 (07:10→12:58)
[2021-05-18] MEDS: LOSARTAN POTASSIUM 25 MG TABLET PO SCH (09:20)
[2021-05-18] MEDS: DILTIAZEM HCL 120MG CAPSULE CD 24HR PO SCH (09:21)
[2021-05-18] MEDS: INSULIN GLARGINE UD 100 UNITS/ML SYR SUBCUT SCH (09:23)
[2021-05-18] MEDS: FERROUS SULFATE 325MG TABLET PO SCH ×2 (09:23→13:44)
[2021-05-18] MEDS ORDERED: FUROSEMIDE 100MG/10ML VIAL IVP NR (09:45)
[2021-05-18] MEDS: CYCLOBENZAPRINE 10MG TABLET PO PRN (09:48)
[2021-05-18] MEDS: HYDRALAZINE 20MG/ML VIAL IV PRN (13:56)
[2021-05-18] MEDS: HYDROCODONE/ACETAMINOPHEN 5/325MG TABLET PO PRN (13:57)
[2021-05-18 20:36] LABS: BASOPHILS % 1.4 % (0.0-2.0); EOSINOPHILS % 1.8 % (0.0-5.0); HEMATOCRIT. 23.8 % (36.0-48.0); HEMOGLOBIN. 7.5 g/dL (12.0-16.0); LYMPHOCYTES % 7.8 % (20.0-50.0); MEAN CORPUSCULAR HEMOGLOBIN 27.3 pg (28.0-32.0); MEAN CORPUSCULAR VOLUME 86.5 fL (81.0-99.0); MEAN PLATELET VOLUME 8.5 fl (7.4-10.4); MONOCYTES % 9.1 % (2.0-8.0); NEUTROPHILS % 79.9 % (40.0-76.0); PLATELET 328 x1000/uL (130-400); RED BLOOD CELL COUNT 2.75 mill/uL (4.2-5.4); RED CELL DISTRIBUTION WIDTH 15.1 % (11.6-14.6)
== END 2021-05-18 17:00 | disposition home health service (06) | DRG 720 ==
LOC: ER 12:05 → EDBEDREQTM 15:31 → EDBEDREQ 15:31 → MICUSO 16:19 → EDBEDREQSVC 16:24 → EDBEDREQTM 16:24 → 8WST 05-03 15:03
PROVIDERS: ADMIT Internal Medicine; ATTEND Internal Medicine
PROC: 5A1D70Z Performance of Urinary Filtration, Intermittent, Less than 6 Hours Per Day (ICD-10-PCS; 2021-05-02)
PROC: 0W993ZZ Drainage of Right Pleural Cavity, Percutaneous Approach (ICD-10-PCS; principal; 2021-05-04)
PROC: 5A1D70Z Performance of Urinary Filtration, Intermittent, Less than 6 Hours Per Day (ICD-10-PCS; 2021-05-04)
PROC: 0W993ZZ Drainage of Right Pleural Cavity, Percutaneous Approach (ICD-10-PCS; 2021-05-05)
PROC: 5A1D70Z Performance of Urinary Filtration, Intermittent, Less than 6 Hours Per Day (ICD-10-PCS; 2021-05-06)
PROC: 5A1D70Z Performance of Urinary Filtration, Intermittent, Less than 6 Hours Per Day (ICD-10-PCS; 2021-05-08)
PROC: 5A1D70Z Performance of Urinary Filtration, Intermittent, Less than 6 Hours Per Day (ICD-10-PCS; 2021-05-10)
PROC: 5A1D70Z Performance of Urinary Filtration, Intermittent, Less than 6 Hours Per Day (ICD-10-PCS; 2021-05-12)
PROC: 30233N1 Transfusion of Nonautologous Red Blood Cells into Peripheral Vein, Percutaneous Approach (ICD-10-PCS; 2021-05-15)
PROC: 5A1D70Z Performance of Urinary Filtration, Intermittent, Less than 6 Hours Per Day (ICD-10-PCS; 2021-05-15)
PROC: 5A1D70Z Performance of Urinary Filtration, Intermittent, Less than 6 Hours Per Day (ICD-10-PCS; 2021-05-17)
DX: A41.9 Sepsis, unspecified organism (principal); J96.01 Acute respiratory failure with hypoxia; I50.33 Acute on chronic diastolic (congestive) heart failure; E43 Unspecified severe protein-calorie malnutrition; J18.9 Pneumonia, unspecified organism; I31.3 Pericardial effusion (noninflammatory); I24.8 Other forms of acute ischemic heart disease; E88.09 Other disorders of plasma-protein metabolism, not elsewhere classified; N18.6 End stage renal disease; I13.2 Hypertensive heart and chronic kidney disease with heart failure and with stage 5 chronic kidney disease, or end stage renal disease; E11.22 Type 2 diabetes mellitus with diabetic chronic kidney disease; E11.65 Type 2 diabetes mellitus with hyperglycemia; B19.20 Unspecified viral hepatitis C without hepatic coma; E78.5 Hyperlipidemia, unspecified; K76.0 Fatty (change of) liver, not elsewhere classified; M48.061 Spinal stenosis, lumbar region without neurogenic claudication; I34.0 Nonrheumatic mitral (valve) insufficiency; D50.9 Iron deficiency anemia, unspecified; D18.03 Hemangioma of intra-abdominal structures; Z20.822 Contact with and (suspected) exposure to COVID-19; M47.819 Spondylosis without myelopathy or radiculopathy, site unspecified; Z99.2 Dependence on renal dialysis; Z88.6 Allergy status to analgesic agent; Z88.1 Allergy status to other antibiotic agents; Z88.0 Allergy status to penicillin; Z88.8 Allergy status to other drugs, medicaments and biological substances; Z79.899 Other long term (current) drug therapy; I25.2 Old myocardial infarction; Z68.29 Body mass index [BMI] 29.0-29.9, adult
CPT/HCPCS: 32555; 36415; 36600; 71045; 72131; 74018; 74176; 76604; 76700; 76770; 80048; 80053; 80061; 82040; 82270; 82375; 82550; 82553; 82607; 82728; 82746; 82805; 82962; 83036; 83540; 83550; 83615; 83735; 84439; 84443; 84478; 84484; 85014; 85018; 85025; 85044; 86705; 86709; 86803; 86850; 86900; 86920; 87340; 87426; 88108; 88312; 93005; 93306; 93970; 94640; 97110; 97116; 97162; 97535; 99291; A6261; C1893; C9113; J0360; J0885; J1200; J1644; J1815; J1940; J1956; J2020; J2270; J2405; J3490; J7040; J7060; J7608; P9016

== ENCOUNTER 2021-09-28 13:19 | Inpatient (IN) | payer MEDICAID ==
[~2021-09-28] VITALS: Ht 167.6 cm; Wt 73.9 kg
[~2021-09-28 13:19] MED LIST: ATOR20TA65 MT; CARI350T28 MT; DILT120C88 MT; FERR325T6 MT; FOLI0.8T23 MT; GABA-529 MT; HYDR-4001 MT; HYDR-4009 MT; HYDR100T26 MT; LOSA50TA3 MT; MINO2.5T2 MT; PROT40 MT
[2021-09-28 14:20] LABS: BASOPHILS % 1.5 % (0.0-2.0); EOSINOPHILS % 0.3 % (0.0-5.0); HEMATOCRIT. 24.2 % (36.0-48.0); HEMOGLOBIN. 7.6 g/dL (12.0-16.0); LYMPHOCYTES % 11.8 % (20.0-50.0); MEAN CORPUSCULAR HEMOGLOBIN 29.4 pg (28.0-32.0); MEAN CORPUSCULAR VOLUME 93.8 fL (81.0-99.0); MONOCYTES % 5.2 % (2.0-8.0); NEUTROPHILS % 81.2 % (40.0-76.0); PLATELET 173 x1000/uL (130-400); RED BLOOD CELL COUNT 2.58 mill/uL (4.2-5.4); RED CELL DISTRIBUTION WIDTH 19.4 % (11.6-14.6)
[2021-09-28 14:30] LABS: CHLORIDE 99 mEq/L (98-107)
[2021-09-28] MEDS ORDERED: MORPHINE SULFATE 2 MG/ML CPJ (NOT FOR IM USE) IV NR (15:15)
[2021-09-28] MEDS ORDERED: MORPHINE SULFATE 4 MG/ML CPJ (NOT FOR IM USE) IV ONE (16:30)
[2021-09-28] MEDS ORDERED: ENOXAPARIN 30MG/0.3ML SYR SUBCUT ONE (17:45)
[2021-09-28] MEDS ORDERED: DEXTROSE 50% WATER 50ML SYRINGE IV PRN (18:15)
[2021-09-28] MEDS: INSULIN LISPRO (HIGH DOSE) 100 UNITS/ML SUBCUT SCH ×2 (18:20→22:03)
[2021-09-28 18:36] LABS: PARTIAL THROMBOPLASTIN TIME 26.5 sec (23.4-31.0); PROTHROMBIN TIME 10.9 sec (9.6-11.0)
[2021-09-28] MEDS ORDERED: INSULIN LISPRO 100 UNITS/ML SUBCUT NR (19:00)
[2021-09-28] MEDS ORDERED: DOCUSATE SODIUM 100MG CAPSULE PO PRN (19:15)
[2021-09-28] MEDS ORDERED: MAGNESIUM/ALUMINUM HYDROXIDE/SIMETHICONE 30ML UDC PO PRN (19:15)
[2021-09-28] MEDS ORDERED: NA PHOS,M-B/NA PHOS,DI-BA ENEMA 118ML PR PRN (19:15)
[2021-09-28] MEDS ORDERED: IPRATROPIUM/ALBUTEROL 0.5-3(2.5)MG/3ML NEB NEB PRN (19:15)
[2021-09-28] MEDS ORDERED: GUAIFENESIN 200MG/10ML SUGAR FREE UDC PO PRN (19:15)
[2021-09-28] MEDS ORDERED: ACETAMINOPHEN 650MG SUPP PR PRN (19:15)
[2021-09-28 19:16] LABS: BG BASE EXCESS 3.4 mmol/L (-2.0-2.0); BG CARBOXYHEMOGLOBIN 1.8 % (0.5-1.5); BG DEOXYHEMOGLOBIN 1.8 % (0.0-5.0); BG FRACTION INSPIRED OXYGEN 28; BG HCO3 ACT 28.3 mmol/L (22.0-26.0); BG METHEMOGLOBIN 0.1 % (0.0-1.5); BG OXYGEN SATURATION 98.2 % (92.0-98.5); BG OXYHEMOGLOBIN 96.3 % (94.0-97.0); BG PCO2 44.8 mmHg (35.0-45.0); BG PH 7.418 (7.350-7.450); BG PO2 107.7 mmHg (75.0-100.0); BG SAMPLE SITE RIGHT RADIAL; BG TOTAL HEMOGLOBIN 7.6 g/dL (12.0-18.0); BG VENT MODE NASAL CANNULA
[2021-09-28] MEDS: MORPHINE SULFATE 2 MG/ML CPJ (NOT FOR IM USE) IV PRN (20:04)
[2021-09-28] MEDS: LORAZEPAM 0.5MG TABLET PO PRN (20:34)
[2021-09-28] MEDS ORDERED: NALOXONE HCL 0.4MG/ML VIAL IV PRN (20:45)
[2021-09-28] MEDS ORDERED: LEVOFLOXACIN 250MG PREMIX 50 ML IV SCH (21:00)
[2021-09-28 21:02] LABS: CLARITY URINE CLOUDY (CLEAR); COLOR URINE YELLOW (YELLOW); KETONES URINE NEGATIVE (NEGATIVE); LEUKOCYTE ESTERASE URINE NEGATIVE (NEGATIVE); NITRITE URINE NEGATIVE (NEGATIVE); OCCULT BLOOD URINE NEGATIVE (NEGATIVE); PH URINE 5.5 (4.5-8.0); PROTEIN URINE 4+ (NEGATIVE); SPECIFIC GRAVITY URINE 1.025 (1.005-1.030); UROBILINOGEN URINE 0.2 E.U./dL (0.2-1.0)
[2021-09-28 21:18] LABS: *AMPHETAMINES SCREEN URINE NEGATIVE (NEGATIVE); *BARBITURATES SCREEN URINE NEGATIVE (NEGATIVE); *BENZODIAZEPINES SCREEN URINE NEGATIVE (NEGATIVE); *COCAINE SCREEN URINE NEGATIVE (NEGATIVE); CANNABINOID URINE SCREEN PRESUMTIVE POSITIVE (NEGATIVE); METHADONE URINE SCREEN NEGATIVE (NEGATIVE); OPIATES URINE SCREEN PRESUMTIVE POSITIVE (NEGATIVE); PHENCYCLIDINE URINE SCREEN NEGATIVE (NEGATIVE)
[2021-09-28] MEDS: BLOOD SUGAR DIAGNOSTIC STRIP TEST SCH (21:54)
[2021-09-28] MEDS ORDERED: INSULIN GLARGINE UD 100 UNITS/ML SYR SUBCUT SCH (22:00)
[2021-09-28 22:30] VITALS: BP 139/56
[2021-09-28] MEDS: DIPHENHYDRAMINE 50MG/ML VIAL IV PRN (23:02)
[2021-09-29] MEDS: MORPHINE SULFATE 2 MG/ML CPJ (NOT FOR IM USE) IV PRN ×5 (00:32→20:06)
[2021-09-29] MEDS: LEVOFLOXACIN 250MG PREMIX 50 ML IV SCH (00:32)
[2021-09-29] MEDS: INSULIN GLARGINE UD 100 UNITS/ML SYR SUBCUT SCH ×2 (00:35→11:02)
[2021-09-29 00:46] LABS: CREATINE KINASE MB FRACTION 5.4 ng/mL (0.5-3.6)
[2021-09-29] MEDS: HYDROCODONE/ACETAMINOPHEN 5/325MG TABLET PO PRN ×4 (01:36→22:11)
[2021-09-29] MEDS ORDERED: CARV25TA47 PO (02:52)
[2021-09-29] MEDS ORDERED: DULO30CA52 PO (02:52)
[2021-09-29] MEDS ORDERED: FLUT16SP15 BOTHNSTRLS (02:52)
[2021-09-29] MEDS ORDERED: CLON-457 PO (02:52)
[2021-09-29] MEDS ORDERED: NIFE-32 PO (02:52)
[2021-09-29] MEDS ORDERED: ASPI-1406 PO (02:52)
[2021-09-29] MEDS ORDERED: BENA40TA9 PO (02:52)
[2021-09-29] MEDS ORDERED: FURO40TA5 PO (02:52)
[2021-09-29] MEDS ORDERED: CALC667C PO (02:52)
[2021-09-29] MEDS ORDERED: SEVE800T8 MT (02:52)
[2021-09-29] MEDS ORDERED: SACU1TAB7 PO (02:52)
[2021-09-29] MEDS ORDERED: AMLO10TA80 PO (02:52)
[2021-09-29] MEDS ORDERED: GABA800T97 PO (02:52)
[2021-09-29] MEDS ORDERED: EMPA10TA PO (02:52)
[2021-09-29] MEDS ORDERED: ISOS60TA76 PO (02:52)
[2021-09-29] MEDS ORDERED: DIPH25CA83 PO (02:52)
[2021-09-29] MEDS ORDERED: ROPI1TAB14 MT (02:52)
[2021-09-29] MEDS ORDERED: ZALE5CAP6 PO (02:52)
[2021-09-29] MEDS: DIPHENHYDRAMINE 50MG/ML VIAL IV PRN ×4 (05:22→20:06)
[2021-09-29 06:33] LABS: CHLORIDE 101 mEq/L (98-107)
[2021-09-29] MEDS: INSULIN LISPRO (HIGH DOSE) 100 UNITS/ML SUBCUT SCH ×4 (06:52→21:55)
[2021-09-29 06:53] LABS: CREATINE KINASE 192 IU/L (26-192); CREATINE KINASE MB FRACTION 4.9 ng/mL (0.5-3.6)
[2021-09-29 08:00] VITALS: BP 132/60
[2021-09-29 08:52] LABS: BASOPHILS % 0.7 % (0.0-2.0); EOSINOPHILS % 0.6 % (0.0-5.0); HEMATOCRIT. 23.4 % (36.0-48.0); HEMOGLOBIN. 7.4 g/dL (12.0-16.0); LYMPHOCYTES % 9.4 % (20.0-50.0); MEAN CORPUSCULAR HEMOGLOBIN 28.9 pg (28.0-32.0); MEAN CORPUSCULAR VOLUME 92.1 fL (81.0-99.0); MEAN PLATELET VOLUME 9.9 fl (7.4-10.4); MONOCYTES % 6.6 % (2.0-8.0); NEUTROPHILS % 82.7 % (40.0-76.0); PLATELET 227 x1000/uL (130-400); RED BLOOD CELL COUNT 2.54 mill/uL (4.2-5.4); RED CELL DISTRIBUTION WIDTH 19.1 % (11.6-14.6)
[2021-09-29] MEDS: BLOOD SUGAR DIAGNOSTIC STRIP TEST SCH ×4 (09:00→21:00)
[2021-09-29] MEDS: PANTOPRAZOLE SODIUM 40 MG/VIAL IV SCH (10:35)
[2021-09-29 12:00] VITALS: BP 131/55
[2021-09-29] MEDS ORDERED: PNEUMOCOCCAL 23-VAL P-SAC VAC 0.5 ML IM ONE (12:00)
[2021-09-29 14:00] VITALS: BP 122/66
[2021-09-29] MEDS: GABAPENTIN 100MG CAPSULE PO SCH ×2 (15:39→21:54)
[2021-09-29] MEDS: ASPIRIN 81MG TABLET PO SCH (15:39)
[2021-09-29 16:00] VITALS: BP 121/60
[2021-09-29] MEDS ORDERED: IOHEXOL-300 100 ML BOTTLE ONE (17:51)
[2021-09-29 19:59] VITALS: BP 172/73
[2021-09-29 20:39] LABS: HEPATITIS B SURFACE ANTIGEN NEGATIVE
[2021-09-29] MEDS: LORAZEPAM 0.5MG TABLET PO PRN (21:54)
[2021-09-29] MEDS: LINEZOLID 600 MG PREMIX 300 ML IV SCH (21:54)
[2021-09-29] MEDS: EPOETIN ALFA-EPBX 10,000 UNIT/ML VIAL SUBCUT SCH (21:55)
[2021-09-30] VITALS (39 sets, daily range): BP systolic 80–182; BP diastolic 38–101
[2021-09-30] MEDS: DIPHENHYDRAMINE 50MG/ML VIAL IV PRN ×3 (00:16→09:49)
[2021-09-30] MEDS: MORPHINE SULFATE 2 MG/ML CPJ (NOT FOR IM USE) IV PRN ×3 (00:17→09:48)
[2021-09-30] MEDS: HYDROCODONE/ACETAMINOPHEN 5/325MG TABLET PO PRN (02:12)
[2021-09-30] MEDS: ACETAMINOPHEN 325MG TABLET PO PRN (04:51)
[2021-09-30] MEDS: LINEZOLID 600 MG PREMIX 300 ML IV SCH (06:48)
[2021-09-30] MEDS: INSULIN LISPRO (HIGH DOSE) 100 UNITS/ML SUBCUT SCH ×4 (06:49→23:20)
[2021-09-30] MEDS ORDERED: ETOMIDATE 2MG/ML 10ML VIAL IV ONE (08:17)
[2021-09-30] MEDS ORDERED: SUCCINYLCHOLINE CHLORIDE 200MG/10ML IV ONE (08:17)
[2021-09-30] MEDS: BLOOD SUGAR DIAGNOSTIC STRIP TEST SCH ×4 (09:00→22:18)
[2021-09-30] MEDS: GABAPENTIN 100MG CAPSULE PO SCH ×2 (09:48→22:15)
[2021-09-30] MEDS: ASPIRIN 81MG TABLET PO SCH (09:48)
[2021-09-30] MEDS: PANTOPRAZOLE SODIUM 40 MG/VIAL IV SCH (09:49)
[2021-09-30] MEDS ORDERED: NITROGLYCERIN 0.4MG TABLET SL SL PRN (12:30)
[2021-09-30] MEDS ORDERED: MORPHINE SULFATE 2 MG/ML CPJ (NOT FOR IM USE) IV NR (12:30)
[2021-09-30] MEDS: METHYLPREDNISOLONE SOD SUCC 40 MG/ML VIAL IV SCH ×2 (13:14→22:16)
[2021-09-30] MEDS: NITROGLYCERIN OINT 1GM/INCH UDPKT TD SCH ×2 (13:35→22:00)
[2021-09-30] MEDS: LORAZEPAM 0.5MG TABLET PO PRN (13:35)
[2021-09-30] MEDS ORDERED: FAMOTIDINE 20MG/2ML VIAL IV NR (14:30)
[2021-09-30] MEDS ORDERED: DIPHENHYDRAMINE 50MG/ML VIAL IV NR (14:30)
[2021-09-30] MEDS ORDERED: RACEPINEPHRINE 2.25% 0.5ML NEB VIAL HHN NR (14:45)
[2021-09-30] MEDS ORDERED: FENTANYL CITRATE/PF 500 MCG in SODIUM CHLORIDE 0.9% 40 ML IV PRN (15:15)
[2021-09-30] MEDS: FENTANYL 2500MCG/250ML PMX 250 ML IV PRN ×2 (15:28→15:40)
[2021-09-30] MEDS: MIDAZOLAM HCL 100 MG in SODIUM CHLORIDE 0.9% 80 ML IV PRN ×2 (15:30→15:42)
[2021-09-30] MEDS ORDERED: HYDRALAZINE 20MG/ML VIAL IV NR (15:30)
[2021-09-30 15:40] LABS: BASOPHILS % 0.9 % (0.0-2.0); EOSINOPHILS % 0.7 % (0.0-5.0); HEMATOCRIT. 26.4 % (36.0-48.0); MEAN CORPUSCULAR VOLUME 95.3 fL (81.0-99.0); MEAN PLATELET VOLUME 9.6 fl (7.4-10.4); MONOCYTES % 3.6 % (2.0-8.0); NEUTROPHILS % 83.8 % (40.0-76.0); PLATELET 307 x1000/uL (130-400); RED BLOOD CELL COUNT 2.77 mill/uL (4.2-5.4); RED CELL DISTRIBUTION WIDTH 19.6 % (11.6-14.6)
[2021-09-30 15:56] LABS: CREATINE KINASE MB FRACTION 6.2 ng/mL (0.5-3.6)
[2021-09-30 16:23] LABS: BG BASE EXCESS -3.8 mmol/L (-2.0-2.0); BG CARBOXYHEMOGLOBIN 0.8 % (0.5-1.5); BG DEOXYHEMOGLOBIN 0.3 % (0.0-5.0); BG FRACTION INSPIRED OXYGEN 100; BG HCO3 ACT 22.3 mmol/L (22.0-26.0); BG METHEMOGLOBIN 0.3 % (0.0-1.5); BG OXYGEN SATURATION 99.7 % (92.0-98.5); BG OXYHEMOGLOBIN 98.6 % (94.0-97.0); BG PCO2 45.1 mmHg (35.0-45.0); BG PH 7.312 (7.350-7.450); BG PO2 377.6 mmHg (75.0-100.0); BG SAMPLE SITE RIGHT RADIAL; BG TOTAL HEMOGLOBIN 8.9 g/dL (12.0-18.0); BG VENT MODE VENT - AC
[2021-09-30] MEDS ORDERED: NOREPINEPHRINE 8MG/250ML PMX 250 ML IV PRN (16:30)
[2021-09-30] MEDS ORDERED: SODIUM POLYSTYRENE SULFONATE 15 G/60 ML BOT PO NR (16:30)
[2021-09-30] MEDS: METRONIDAZOLE 500 MG PREMIX 100 ML IV SCH (17:30)
[2021-09-30] MEDS ORDERED: NOREPINEPHRINE 8 MG in DEXTROSE 5% WATER 250 ML IV PRN (17:30)
[2021-09-30] MEDS: AZTREONAM 1 G in DEXTROSE 5% WATER 50 ML IV SCH (17:35)
[2021-09-30] MEDS ORDERED: SODIUM BICARBONATE 8.4% 1 MEQ/ML 50ML SYR IV NR (17:45)
[2021-09-30 18:29] LABS: BG BASE EXCESS 3.8 mmol/L (-2.0-2.0); BG CARBOXYHEMOGLOBIN 0.9 % (0.5-1.5); BG DEOXYHEMOGLOBIN 4.5 % (0.0-5.0); BG FRACTION INSPIRED OXYGEN 50; BG HCO3 ACT 27.7 mmol/L (22.0-26.0); BG METHEMOGLOBIN 0.5 % (0.0-1.5); BG OXYGEN SATURATION 95.4 % (92.0-98.5); BG OXYHEMOGLOBIN 94.1 % (94.0-97.0); BG PCO2 38.6 mmHg (35.0-45.0); BG PH 7.473 (7.350-7.450); BG PO2 75.4 mmHg (75.0-100.0); BG SAMPLE SITE RIGHT RADIAL; BG VENT MODE VENT - AC
[2021-09-30 20:05] LABS: CLARITY URINE TURBID (CLEAR); COLOR URINE YELLOW (YELLOW); KETONES URINE TRACE (NEGATIVE); LEUKOCYTE ESTERASE URINE NEGATIVE (NEGATIVE); NITRITE URINE NEGATIVE (NEGATIVE); OCCULT BLOOD URINE TRACE (NEGATIVE); PH URINE 5.5 (4.5-8.0); PROTEIN URINE 4+ (NEGATIVE); SPECIFIC GRAVITY URINE 1.031 (1.005-1.030); UROBILINOGEN URINE 0.2 E.U./dL (0.2-1.0)
[2021-09-30] MEDS: IPRATROPIUM/ALBUTEROL 0.5-3(2.5)MG/3ML NEB HHN SCH (20:20)
[2021-09-30] MEDS: CARVEDILOL 6.25 MG TABLET PO SCH (22:00)
[2021-10-01] VITALS (91 sets, daily range): BP systolic 65–173; BP diastolic 33–112
[2021-10-01] MEDS: LEVOFLOXACIN 250MG PREMIX 50 ML IV SCH ×2 (00:51)
[2021-10-01] MEDS: IPRATROPIUM/ALBUTEROL 0.5-3(2.5)MG/3ML NEB HHN SCH ×4 (01:44→19:40)
[2021-10-01] MEDS: METRONIDAZOLE 500 MG PREMIX 100 ML IV SCH ×2 (02:00→11:40)
[2021-10-01] MEDS: NITROGLYCERIN OINT 1GM/INCH UDPKT TD SCH ×3 (06:00→22:00)
[2021-10-01] MEDS: AZTREONAM 1 G in DEXTROSE 5% WATER 50 ML IV SCH (06:40)
[2021-10-01] MEDS: INSULIN LISPRO (HIGH DOSE) 100 UNITS/ML SUBCUT SCH ×4 (06:44→23:29)
[2021-10-01] MEDS: METHYLPREDNISOLONE SOD SUCC 40 MG/ML VIAL IV SCH ×3 (06:44→23:10)
[2021-10-01 07:01] LABS: BASOPHILS % 0.7 % (0.0-2.0); EOSINOPHILS % 0.2 % (0.0-5.0); LYMPHOCYTES % 13.5 % (20.0-50.0); MEAN CORPUSCULAR HEMOGLOBIN 29.4 pg (28.0-32.0); MEAN CORPUSCULAR VOLUME 93.2 fL (81.0-99.0); MEAN PLATELET VOLUME 8.6 fl (7.4-10.4); MONOCYTES % 8.6 % (2.0-8.0); PLATELET 215 x1000/uL (130-400); RED BLOOD CELL COUNT 2.36 mill/uL (4.2-5.4); RED CELL DISTRIBUTION WIDTH 19.1 % (11.6-14.6)
[2021-10-01 07:12] LABS: HEMOGLOBIN. 6.9 g/dL (12.0-16.0)
[2021-10-01] MEDS: CARVEDILOL 6.25 MG TABLET PO SCH ×2 (09:00→21:00)
[2021-10-01] MEDS ORDERED: LIDOCAINE HCL/PF 1% 10 MG/ML 5ML VIAL ONE (09:08)
[2021-10-01 09:35] LABS: BG CARBOXYHEMOGLOBIN 1.7 % (0.5-1.5); BG DEOXYHEMOGLOBIN 0.3 % (0.0-5.0); BG FRACTION INSPIRED OXYGEN 50; BG HCO3 ACT 28.7 mmol/L (22.0-26.0); BG METHEMOGLOBIN 0.1 % (0.0-1.5); BG OXYGEN SATURATION 99.7 % (92.0-98.5); BG OXYHEMOGLOBIN 97.9 % (94.0-97.0); BG PCO2 44.6 mmHg (35.0-45.0); BG PH 7.427 (7.350-7.450); BG PO2 140.3 mmHg (75.0-100.0); BG SAMPLE SITE RIGHT RADIAL; BG TOTAL HEMOGLOBIN 6.9 g/dL (12.0-18.0); BG VENT MODE VENT - AC
[2021-10-01] MEDS: BLOOD SUGAR DIAGNOSTIC STRIP TEST SCH ×4 (09:36→22:43)
[2021-10-01] MEDS: ASPIRIN 81MG TABLET PO SCH (09:36)
[2021-10-01] MEDS: GABAPENTIN 100MG CAPSULE PO SCH ×2 (09:36→21:21)
[2021-10-01] MEDS: PANTOPRAZOLE SODIUM 40 MG/VIAL IV SCH (09:36)
[2021-10-01 14:31] LABS: HEMATOCRIT 25.8 % (36.0-48.0); HEMOGLOBIN 8.2 g/dL (12.0-16.0)
[2021-10-01] MEDS: DIPHENHYDRAMINE 50MG/ML VIAL IV PRN ×2 (14:35→20:00)
[2021-10-01 14:39] LABS: INR 1.1; PROTHROMBIN TIME 11.5 sec (9.6-11.0)
[2021-10-01] MEDS ORDERED: CEPHALEXIN 250MG CAPSULE PO NR (16:15)
[2021-10-01] MEDS: CLINDAMYCIN IN 0.9 % SOD CHLOR 50 ML IV SCH (17:40)
[2021-10-01 17:50] LABS: BG BASE EXCESS 2.2 mmol/L (-2.0-2.0); BG CARBOXYHEMOGLOBIN 0.3 % (0.5-1.5); BG DEOXYHEMOGLOBIN 0.7 % (0.0-5.0); BG FRACTION INSPIRED OXYGEN 50; BG HCO3 ACT 26.6 mmol/L (22.0-26.0); BG METHEMOGLOBIN 0.3 % (0.0-1.5); BG OXYGEN SATURATION 99.3 % (92.0-98.5); BG OXYHEMOGLOBIN 98.7 % (94.0-97.0); BG PCO2 40.6 mmHg (35.0-45.0); BG PH 7.435 (7.350-7.450); BG PO2 159.5 mmHg (75.0-100.0); BG SAMPLE SITE RIGHT RADIAL; BG TOTAL HEMOGLOBIN 9.5 g/dL (12.0-18.0); BG VENT MODE VENT - CPAP
[2021-10-01] MEDS ORDERED: CLINDAMYCIN 900 MG in DEXTROSE 5% WATER 50 ML IV SCH (18:00)
[2021-10-01] MEDS: MORPHINE SULFATE 2 MG/ML CPJ (NOT FOR IM USE) IV PRN ×2 (18:22→23:31)
[2021-10-02] VITALS (74 sets, daily range): BP systolic 61–185; BP diastolic 32–112
[2021-10-02] MEDS: DIPHENHYDRAMINE 50MG/ML VIAL IV PRN ×6 (00:40→23:14)
[2021-10-02] MEDS: IPRATROPIUM/ALBUTEROL 0.5-3(2.5)MG/3ML NEB HHN SCH ×4 (00:59→20:16)
[2021-10-02] MEDS: HYDROCODONE/ACETAMINOPHEN 5/325MG TABLET PO PRN ×3 (01:54→19:43)
[2021-10-02] MEDS: CLINDAMYCIN IN 0.9 % SOD CHLOR 50 ML IV SCH ×2 (02:55→13:45)
[2021-10-02] MEDS: MORPHINE SULFATE 2 MG/ML CPJ (NOT FOR IM USE) IV PRN ×4 (04:49→23:13)
[2021-10-02] MEDS: NITROGLYCERIN OINT 1GM/INCH UDPKT TD SCH ×3 (05:55→21:10)
[2021-10-02] MEDS: METHYLPREDNISOLONE SOD SUCC 40 MG/ML VIAL IV SCH ×3 (05:55→22:00)
[2021-10-02 07:09] LABS: HEMATOCRIT. 27.3 % (36.0-48.0); HEMOGLOBIN. 8.8 g/dL (12.0-16.0); MEAN CORPUSCULAR HEMOGLOBIN 30.4 pg (28.0-32.0); MEAN CORPUSCULAR VOLUME 94.3 fL (81.0-99.0); MEAN PLATELET VOLUME 9.3 fl (7.4-10.4); PLATELET 320 x1000/uL (130-400); RED BLOOD CELL COUNT 2.89 mill/uL (4.2-5.4); RED CELL DISTRIBUTION WIDTH 18.4 % (11.6-14.6)
[2021-10-02] MEDS: INSULIN LISPRO (HIGH DOSE) 100 UNITS/ML SUBCUT SCH ×4 (07:55→21:11)
[2021-10-02] MEDS: PANTOPRAZOLE SODIUM 40 MG/VIAL IV SCH (08:34)
[2021-10-02] MEDS: GABAPENTIN 100MG CAPSULE PO SCH ×2 (08:34→21:12)
[2021-10-02] MEDS: ASPIRIN 81MG TABLET PO SCH (08:35)
[2021-10-02] MEDS: CARVEDILOL 6.25 MG TABLET PO SCH ×2 (08:35→21:13)
[2021-10-02] MEDS ORDERED: AZTREONAM 1 G in DEXTROSE 5% WATER 50 ML IV SCH (09:00)
[2021-10-02] MEDS: BLOOD SUGAR DIAGNOSTIC STRIP TEST SCH ×4 (09:00→21:14)
[2021-10-02 09:05] LABS: BG CARBOXYHEMOGLOBIN 0.4 % (0.5-1.5); BG DEOXYHEMOGLOBIN 3.5 % (0.0-5.0); BG FRACTION INSPIRED OXYGEN 35; BG HCO3 ACT 22.6 mmol/L (22.0-26.0); BG METHEMOGLOBIN 0.3 % (0.0-1.5); BG OXYGEN SATURATION 96.5 % (92.0-98.5); BG OXYHEMOGLOBIN 95.8 % (94.0-97.0); BG PCO2 37.6 mmHg (35.0-45.0); BG PH 7.396 (7.350-7.450); BG PO2 92.9 mmHg (75.0-100.0); BG SAMPLE SITE LEFT RADIAL; BG TOTAL HEMOGLOBIN 8.5 g/dL (12.0-18.0); BG VENT MODE NASAL CANNULA
[2021-10-02] MEDS: MIDODRINE HCL 2.5MG TABLET PO SCH ×3 (10:55→17:00)
[2021-10-02 13:02] LABS: PLATELET ESTIMATE NORMAL
[2021-10-02] MEDS ORDERED: CEFTRIAXONE 2 G PREMIX 50 ML IV SCH (14:00)
[2021-10-02] MEDS: METRONIDAZOLE 250MG TABLET PO SCH ×2 (14:08→21:13)
[2021-10-02] MEDS: CEFTRIAXONE 2 G in DEXTROSE 5% WATER 50 ML IV SCH (15:07)
[2021-10-02] MEDS: EPOETIN ALFA-EPBX 10,000 UNIT/ML VIAL SUBCUT SCH (21:18)
[2021-10-02] MEDS: LORAZEPAM 0.5MG TABLET PO PRN (21:33)
[2021-10-03] VITALS (18 sets, daily range): BP systolic 144–176; BP diastolic 57–109
[2021-10-03] MEDS: IPRATROPIUM/ALBUTEROL 0.5-3(2.5)MG/3ML NEB HHN SCH ×4 (01:17→21:15)
[2021-10-03] MEDS: DIPHENHYDRAMINE 50MG/ML VIAL IV PRN ×4 (05:34→20:57)
[2021-10-03] MEDS: MORPHINE SULFATE 2 MG/ML CPJ (NOT FOR IM USE) IV PRN ×3 (05:34→22:41)
[2021-10-03] MEDS: METRONIDAZOLE 250MG TABLET PO SCH ×3 (05:34→23:21)
[2021-10-03] MEDS: METHYLPREDNISOLONE SOD SUCC 40 MG/ML VIAL IV SCH ×3 (05:34→22:19)
[2021-10-03] MEDS: NITROGLYCERIN OINT 1GM/INCH UDPKT TD SCH ×3 (05:35→22:20)
[2021-10-03 05:59] LABS: BASOPHILS % 0.2 % (0.0-2.0); HEMATOCRIT. 24.7 % (36.0-48.0); HEMOGLOBIN. 8.1 g/dL (12.0-16.0); LYMPHOCYTES % 8.7 % (20.0-50.0); MEAN CORPUSCULAR HEMOGLOBIN 30.4 pg (28.0-32.0); MEAN CORPUSCULAR VOLUME 93.3 fL (81.0-99.0); MEAN PLATELET VOLUME 9.2 fl (7.4-10.4); MONOCYTES % 4.3 % (2.0-8.0); NEUTROPHILS % 86.8 % (40.0-76.0); PLATELET 215 x1000/uL (130-400); RED BLOOD CELL COUNT 2.65 mill/uL (4.2-5.4); RED CELL DISTRIBUTION WIDTH 17.3 % (11.6-14.6)
[2021-10-03] MEDS: PANTOPRAZOLE SODIUM 40 MG/VIAL IV SCH (08:43)
[2021-10-03] MEDS: MIDODRINE HCL 2.5MG TABLET PO SCH ×4 (08:44→17:00)
[2021-10-03] MEDS: GABAPENTIN 100MG CAPSULE PO SCH ×2 (08:44→22:18)
[2021-10-03] MEDS: CARVEDILOL 6.25 MG TABLET PO SCH ×2 (08:44→22:18)
[2021-10-03] MEDS: ASPIRIN 81MG TABLET PO SCH (08:44)
[2021-10-03] MEDS: INSULIN LISPRO (HIGH DOSE) 100 UNITS/ML SUBCUT SCH ×2 (08:45→13:12)
[2021-10-03] MEDS: HYDROCODONE/ACETAMINOPHEN 5/325MG TABLET PO PRN (08:47)
[2021-10-03] MEDS: BLOOD SUGAR DIAGNOSTIC STRIP TEST SCH ×5 (08:47→21:00)
[2021-10-03] MEDS: CEFTRIAXONE 2 G in DEXTROSE 5% WATER 50 ML IV SCH (15:22)
[2021-10-03] MEDS: LORAZEPAM 0.5MG TABLET PO PRN (17:45)
[2021-10-03] MEDS ORDERED: DEXTROSE 50% WATER 50ML SYRINGE IV PRN (19:00)
[2021-10-03] MEDS: HYDRALAZINE 20MG/ML VIAL IV PRN (19:08)
[2021-10-03] MEDS: INSULIN LISPRO 100 UNITS/ML SUBCUT SCH ×2 (19:09→22:40)
[2021-10-04] VITALS: BP 163/71
[2021-10-04] MEDS: DIPHENHYDRAMINE 50MG/ML VIAL IV PRN ×4 (01:24→21:00)
[2021-10-04] MEDS: IPRATROPIUM/ALBUTEROL 0.5-3(2.5)MG/3ML NEB HHN SCH ×4 (02:20→20:53)
[2021-10-04] MEDS: MORPHINE SULFATE 2 MG/ML CPJ (NOT FOR IM USE) IV PRN ×4 (03:21→23:47)
[2021-10-04 04:00] VITALS: BP 149/71
[2021-10-04] MEDS: METRONIDAZOLE 250MG TABLET PO SCH ×3 (06:22→22:04)
[2021-10-04] MEDS: METHYLPREDNISOLONE SOD SUCC 40 MG/ML VIAL IV SCH (06:22)
[2021-10-04] MEDS: NITROGLYCERIN OINT 1GM/INCH UDPKT TD SCH ×3 (06:23→22:04)
[2021-10-04] MEDS: BLOOD SUGAR DIAGNOSTIC STRIP TEST SCH ×8 (06:23→20:38)
[2021-10-04] MEDS: INSULIN LISPRO 100 UNITS/ML SUBCUT SCH ×4 (06:24→20:47)
[2021-10-04 07:20] LABS: HEMATOCRIT. 24.6 % (36.0-48.0); HEMOGLOBIN. 7.8 g/dL (12.0-16.0); MEAN CORPUSCULAR HEMOGLOBIN 28.5 pg (28.0-32.0); MEAN CORPUSCULAR VOLUME 90.1 fL (81.0-99.0); MEAN PLATELET VOLUME 9.6 fl (7.4-10.4); PLATELET 213 x1000/uL (130-400); RED BLOOD CELL COUNT 2.73 mill/uL (4.2-5.4); RED CELL DISTRIBUTION WIDTH 16.6 % (11.6-14.6)
[2021-10-04 08:00] VITALS: BP 183/88
[2021-10-04] MEDS: GABAPENTIN 100MG CAPSULE PO SCH ×3 (08:08→22:04)
[2021-10-04] MEDS: ASPIRIN 81MG TABLET PO SCH (08:08)
[2021-10-04] MEDS: CARVEDILOL 6.25 MG TABLET PO SCH (08:09)
[2021-10-04] MEDS: PANTOPRAZOLE SODIUM 40 MG/VIAL IV SCH (08:09)
[2021-10-04] MEDS: MIDODRINE HCL 2.5MG TABLET PO SCH (08:18)
[2021-10-04] MEDS ORDERED: INSULIN LISPRO 100 UNITS/ML SUBCUT NR ×2 (09:15→12:00)
[2021-10-04] MEDS ORDERED: CARVEDILOL 6.25 MG TABLET PO NR (10:45)
[2021-10-04] MEDS: INSULIN GLARGINE UD 100 UNITS/ML SYR SUBCUT SCH ×2 (11:00→22:06)
[2021-10-04 12:00] VITALS: BP 180/84
[2021-10-04] MEDS ORDERED: METHYLPREDNISOLONE SOD SUCC 40 MG/ML VIAL IV SCH (14:00)
[2021-10-04 16:00] VITALS: BP 169/95
[2021-10-04 16:54] LABS: PLATELET ESTIMATE NORMAL
[2021-10-04] MEDS: CEFTRIAXONE 2 G in DEXTROSE 5% WATER 50 ML IV SCH (17:17)
[2021-10-04] MEDS: HYDROCODONE/ACETAMINOPHEN 5/325MG TABLET PO PRN (17:17)
[2021-10-04 20:00] VITALS: BP 177/91
[2021-10-04] MEDS: CARVEDILOL 12.5MG TABLET PO SCH (20:44)
[2021-10-04] MEDS: EPOETIN ALFA-EPBX 10,000 UNIT/ML VIAL SUBCUT SCH (20:45)
[2021-10-05] VITALS: BP 150/68
[2021-10-05] MEDS: IPRATROPIUM/ALBUTEROL 0.5-3(2.5)MG/3ML NEB HHN SCH ×4 (00:40→21:12)
[2021-10-05] MEDS: HYDROCODONE/ACETAMINOPHEN 5/325MG TABLET PO PRN ×2 (02:09→14:55)
[2021-10-05 04:00] VITALS: BP 164/81
[2021-10-05] MEDS: GABAPENTIN 100MG CAPSULE PO SCH ×3 (05:33→21:47)
[2021-10-05] MEDS: METRONIDAZOLE 250MG TABLET PO SCH ×3 (05:33→21:47)
[2021-10-05] MEDS: HYDRALAZINE 20MG/ML VIAL IV PRN ×2 (05:35→16:51)
[2021-10-05] MEDS: DIPHENHYDRAMINE 50MG/ML VIAL IV PRN ×4 (05:36→21:47)
[2021-10-05] MEDS: NITROGLYCERIN OINT 1GM/INCH UDPKT TD SCH ×3 (05:36→21:48)
[2021-10-05] MEDS: BLOOD SUGAR DIAGNOSTIC STRIP TEST SCH ×5 (06:38→20:20)
[2021-10-05] MEDS: INSULIN LISPRO 100 UNITS/ML SUBCUT SCH ×4 (06:46→21:50)
[2021-10-05 08:21] LABS: BASOPHILS % 0.3 % (0.0-2.0); EOSINOPHILS % 0.3 % (0.0-5.0); HEMATOCRIT. 25.8 % (36.0-48.0); HEMOGLOBIN. 8.4 g/dL (12.0-16.0); LYMPHOCYTES % 17.4 % (20.0-50.0); MEAN CORPUSCULAR HEMOGLOBIN 29.2 pg (28.0-32.0); MEAN CORPUSCULAR VOLUME 89.9 fL (81.0-99.0); MEAN PLATELET VOLUME 8.5 fl (7.4-10.4); MONOCYTES % 9.5 % (2.0-8.0); NEUTROPHILS % 72.5 % (40.0-76.0); PLATELET 232 x1000/uL (130-400); RED BLOOD CELL COUNT 2.87 mill/uL (4.2-5.4); RED CELL DISTRIBUTION WIDTH 16.6 % (11.6-14.6)
[2021-10-05 08:43] VITALS: BP 148/68
[2021-10-05] MEDS: CARVEDILOL 12.5MG TABLET PO SCH ×2 (09:28→20:21)
[2021-10-05] MEDS: PANTOPRAZOLE 40MG DR TABLET PO SCH (09:29)
[2021-10-05] MEDS: ASPIRIN 81MG TABLET PO SCH (09:29)
[2021-10-05] MEDS: METHYLPREDNISOLONE SOD SUCC 40 MG/ML VIAL IV SCH (09:29)
[2021-10-05] MEDS: INSULIN GLARGINE UD 100 UNITS/ML SYR SUBCUT SCH ×2 (09:31→22:59)
[2021-10-05] MEDS: MORPHINE SULFATE 2 MG/ML CPJ (NOT FOR IM USE) IV PRN ×2 (09:32→20:22)
[2021-10-05 12:00] VITALS: BP 115/73
[2021-10-05] MEDS: CEFTRIAXONE 2 G in DEXTROSE 5% WATER 50 ML IV SCH (16:26)
[2021-10-05 16:30] VITALS: BP 170/85
[2021-10-05 20:00] VITALS: BP 151/61
[2021-10-05] MEDS: CARISOPRODOL 350 MG TABLET PO PRN (20:21)
[2021-10-05] MEDS ORDERED: INSULIN LISPRO 100 UNITS/ML SUBCUT NR (20:45)
[2021-10-06] VITALS: BP 144/68
[2021-10-06] MEDS: ZOLPIDEM TARTRATE 5MG TABLET PO PRN ×2 (01:35→22:58)
[2021-10-06] MEDS: MORPHINE SULFATE 2 MG/ML CPJ (NOT FOR IM USE) IV PRN ×4 (01:36→21:51)
[2021-10-06] MEDS: IPRATROPIUM/ALBUTEROL 0.5-3(2.5)MG/3ML NEB HHN SCH (02:23)
[2021-10-06 04:00] VITALS: BP 147/75
[2021-10-06] MEDS: CARISOPRODOL 350 MG TABLET PO PRN ×2 (06:08→14:47)
[2021-10-06] MEDS: METRONIDAZOLE 250MG TABLET PO SCH ×3 (06:08→21:44)
[2021-10-06] MEDS: NITROGLYCERIN OINT 1GM/INCH UDPKT TD SCH ×3 (06:08→21:50)
[2021-10-06] MEDS: GABAPENTIN 100MG CAPSULE PO SCH ×3 (06:08→21:44)
[2021-10-06] MEDS: DIPHENHYDRAMINE 50MG/ML VIAL IV PRN ×3 (06:09→20:55)
[2021-10-06] MEDS: BLOOD SUGAR DIAGNOSTIC STRIP TEST SCH ×4 (06:17→21:08)
[2021-10-06] MEDS: INSULIN LISPRO 100 UNITS/ML SUBCUT SCH ×4 (06:24→20:55)
[2021-10-06 08:00] VITALS: BP 154/79
[2021-10-06 08:30] LABS: HEMATOCRIT 26.3 % (36.0-48.0); HEMOGLOBIN 8.6 g/dL (12.0-16.0); MEAN CORPUSCULAR HEMOGLOBIN 29.5 pg (28.0-32.0); MEAN CORPUSCULAR VOLUME 90.5 fL (81.0-99.0); PLATELET 257 x1000/uL (130-400); RED BLOOD CELL COUNT 2.91 mill/uL (4.2-5.4); RED CELL DISTRIBUTION WIDTH 16.7 % (11.6-14.6)
[2021-10-06] MEDS: CARVEDILOL 12.5MG TABLET PO SCH ×2 (08:35→20:53)
[2021-10-06] MEDS: ASPIRIN 81MG TABLET PO SCH (08:35)
[2021-10-06] MEDS: METHYLPREDNISOLONE SOD SUCC 40 MG/ML VIAL IV SCH (08:35)
[2021-10-06] MEDS: PANTOPRAZOLE 40MG DR TABLET PO SCH (08:35)
[2021-10-06] MEDS: HYDROCODONE/ACETAMINOPHEN 5/325MG TABLET PO PRN ×2 (09:44→16:57)
[2021-10-06] MEDS: INSULIN GLARGINE UD 100 UNITS/ML SYR SUBCUT SCH ×2 (09:48→22:58)
[2021-10-06 12:00] VITALS: BP 170/84
[2021-10-06] MEDS ORDERED: LIDOCAINE HCL/PF 1% 2ML VIAL ONE (14:11)
[2021-10-06 15:05] LABS: BG BASE EXCESS -5.1 mmol/L (-2.0-2.0); BG CARBOXYHEMOGLOBIN 0.5 % (0.5-1.5); BG DEOXYHEMOGLOBIN 3.6 % (0.0-5.0); BG FRACTION INSPIRED OXYGEN 21; BG HCO3 ACT 19.8 mmol/L (22.0-26.0); BG METHEMOGLOBIN 0.2 % (0.0-1.5); BG OXYGEN SATURATION 96.4 % (92.0-98.5); BG OXYHEMOGLOBIN 95.7 % (94.0-97.0); BG PH 7.358 (7.350-7.450); BG PO2 90.3 mmHg (75.0-100.0); BG SAMPLE SITE RIGHT BRACHIAL; BG TOTAL HEMOGLOBIN 10.4 g/dL (12.0-18.0); BG VENT MODE ROOM AIR
[2021-10-06 16:00] VITALS: BP 160/81
[2021-10-06] MEDS: CEFTRIAXONE 2 G in DEXTROSE 5% WATER 50 ML IV SCH (16:57)
[2021-10-06] MEDS ORDERED: INSULIN LISPRO 100 UNITS/ML SUBCUT NR (17:00)
[2021-10-06 20:00] VITALS: BP 182/82
[2021-10-07] VITALS (7 sets, daily range): BP systolic 136–175; BP diastolic 63–90
[2021-10-07] MEDS: HYDRALAZINE 20MG/ML VIAL IV PRN ×3 (00:52→18:04)
[2021-10-07] MEDS: DIPHENHYDRAMINE 50MG/ML VIAL IV PRN ×4 (00:52→20:25)
[2021-10-07] MEDS: HYDROCODONE/ACETAMINOPHEN 5/325MG TABLET PO PRN ×3 (02:22→20:25)
[2021-10-07] MEDS: CARISOPRODOL 350 MG TABLET PO PRN ×2 (04:23→13:22)
[2021-10-07] MEDS: MORPHINE SULFATE 2 MG/ML CPJ (NOT FOR IM USE) IV PRN ×4 (04:56→23:30)
[2021-10-07] MEDS: METRONIDAZOLE 250MG TABLET PO SCH ×2 (06:04→13:12)
[2021-10-07] MEDS: GABAPENTIN 100MG CAPSULE PO SCH ×3 (06:04→21:07)
[2021-10-07] MEDS: NITROGLYCERIN OINT 1GM/INCH UDPKT TD SCH ×3 (06:05→21:08)
[2021-10-07] MEDS: BLOOD SUGAR DIAGNOSTIC STRIP TEST SCH ×4 (06:35→20:39)
[2021-10-07] MEDS: PANTOPRAZOLE 40MG DR TABLET PO SCH (08:13)
[2021-10-07] MEDS: ASPIRIN 81MG TABLET PO SCH (08:13)
[2021-10-07] MEDS: METHYLPREDNISOLONE SOD SUCC 40 MG/ML VIAL IV SCH (08:13)
[2021-10-07] MEDS: CARVEDILOL 12.5MG TABLET PO SCH ×2 (08:14→20:25)
[2021-10-07] MEDS: INSULIN LISPRO 100 UNITS/ML SUBCUT SCH ×4 (08:15→21:15)
[2021-10-07 08:29] LABS: HEMATOCRIT 26.7 % (36.0-48.0); HEMOGLOBIN 8.7 g/dL (12.0-16.0); MEAN CORPUSCULAR HEMOGLOBIN 30.3 pg (28.0-32.0); MEAN CORPUSCULAR VOLUME 93.1 fL (81.0-99.0); PLATELET 254 x1000/uL (130-400); RED BLOOD CELL COUNT 2.87 mill/uL (4.2-5.4); RED CELL DISTRIBUTION WIDTH 16.7 % (11.6-14.6)
[2021-10-07] MEDS: INSULIN GLARGINE UD 100 UNITS/ML SYR SUBCUT SCH ×2 (09:23→21:15)
[2021-10-07] MEDS: ZOLPIDEM TARTRATE 5MG TABLET PO PRN (21:45)
[2021-10-08 04:00] VITALS: BP 158/82
[2021-10-08] MEDS: BLOOD SUGAR DIAGNOSTIC STRIP TEST SCH ×4 (06:41→21:00)
[2021-10-08] MEDS: NITROGLYCERIN OINT 1GM/INCH UDPKT TD SCH ×3 (06:43→20:34)
[2021-10-08] MEDS: GABAPENTIN 100MG CAPSULE PO SCH ×3 (06:43→20:34)
[2021-10-08] MEDS: HYDROCODONE/ACETAMINOPHEN 5/325MG TABLET PO PRN ×2 (06:43→20:35)
[2021-10-08 08:00] VITALS: BP 161/78
[2021-10-08] MEDS: INSULIN LISPRO 100 UNITS/ML SUBCUT SCH ×4 (08:02→23:01)
[2021-10-08] MEDS: PANTOPRAZOLE 40MG DR TABLET PO SCH (08:02)
[2021-10-08] MEDS: CARVEDILOL 12.5MG TABLET PO SCH ×2 (08:02→20:34)
[2021-10-08] MEDS: ASPIRIN 81MG TABLET PO SCH (08:02)
[2021-10-08] MEDS: METHYLPREDNISOLONE SOD SUCC 40 MG/ML VIAL IV SCH (08:02)
[2021-10-08] MEDS: MORPHINE SULFATE 2 MG/ML CPJ (NOT FOR IM USE) IV PRN ×3 (08:27→22:37)
[2021-10-08] MEDS: CARISOPRODOL 350 MG TABLET PO PRN ×2 (10:29→18:33)
[2021-10-08] MEDS: INSULIN GLARGINE UD 100 UNITS/ML SYR SUBCUT SCH ×2 (10:29→23:00)
[2021-10-08 12:00] VITALS: BP 145/74
[2021-10-08] MEDS: DIPHENHYDRAMINE 50MG/ML VIAL IV PRN ×2 (14:37→20:35)
[2021-10-08] MEDS: METRONIDAZOLE 250MG TABLET PO SCH ×2 (14:37→20:33)
[2021-10-08 16:00] VITALS: BP 184/87
[2021-10-08] MEDS: HYDRALAZINE 20MG/ML VIAL IV PRN (16:53)
[2021-10-08] MEDS: CEFTRIAXONE 2 G in DEXTROSE 5% WATER 50 ML IV SCH (16:53)
[2021-10-08 20:00] VITALS: BP 183/87
[2021-10-08] MEDS: ZOLPIDEM TARTRATE 5MG TABLET PO PRN (22:36)
[2021-10-09] VITALS: BP 173/89
[2021-10-09 04:00] VITALS: BP 173/89
[2021-10-09] MEDS: METRONIDAZOLE 250MG TABLET PO SCH ×3 (06:08→22:07)
[2021-10-09] MEDS: GABAPENTIN 100MG CAPSULE PO SCH ×3 (06:08→22:07)
[2021-10-09] MEDS: NITROGLYCERIN OINT 1GM/INCH UDPKT TD SCH ×3 (06:09→22:06)
[2021-10-09] MEDS: BLOOD SUGAR DIAGNOSTIC STRIP TEST SCH ×4 (06:09→21:14)
[2021-10-09] MEDS: DIPHENHYDRAMINE 50MG/ML VIAL IV PRN ×3 (06:29→18:55)
[2021-10-09] MEDS: HYDROCODONE/ACETAMINOPHEN 5/325MG TABLET PO PRN ×3 (06:29→16:47)
[2021-10-09] MEDS: INSULIN LISPRO 100 UNITS/ML SUBCUT SCH ×4 (07:21→21:11)
[2021-10-09 08:00] VITALS: BP 167/78
[2021-10-09 08:03] LABS: HEMATOCRIT 27.8 % (36.0-48.0); HEMOGLOBIN 8.9 g/dL (12.0-16.0); MEAN CORPUSCULAR HEMOGLOBIN 29.3 pg (28.0-32.0); PLATELET 318 x1000/uL (130-400); RED BLOOD CELL COUNT 3.05 mill/uL (4.2-5.4); RED CELL DISTRIBUTION WIDTH 16.7 % (11.6-14.6)
[2021-10-09] MEDS: ASPIRIN 81MG TABLET PO SCH (08:24)
[2021-10-09] MEDS: METHYLPREDNISOLONE SOD SUCC 40 MG/ML VIAL IV SCH (08:24)
[2021-10-09] MEDS: PANTOPRAZOLE 40MG DR TABLET PO SCH (08:25)
[2021-10-09] MEDS: CARISOPRODOL 350 MG TABLET PO PRN ×2 (08:25→22:07)
[2021-10-09] MEDS: CARVEDILOL 12.5MG TABLET PO SCH ×2 (08:25→22:08)
[2021-10-09] MEDS ORDERED: MORPHINE SULFATE 2 MG/ML CPJ (NOT FOR IM USE) IV PRN (09:30)
[2021-10-09] MEDS: INSULIN GLARGINE UD 100 UNITS/ML SYR SUBCUT SCH ×2 (09:52→22:09)
[2021-10-09 12:00] VITALS: BP 169/82
[2021-10-09 16:00] VITALS: BP 151/68
[2021-10-09] MEDS: CEFTRIAXONE 2 G in DEXTROSE 5% WATER 50 ML IV SCH (16:47)
[2021-10-09] MEDS: ONDANSETRON HCL 4MG/2ML INJ IV PRN (20:14)
[2021-10-09] MEDS ORDERED: HEPARIN SODIUM 1,000 UNIT/1ML VIAL IV ONE (21:15)
[2021-10-09] MEDS ORDERED: HEPARIN SODIUM 1,000 UNIT/1ML VIAL IV NR (21:39)
[2021-10-09] MEDS: EPOETIN ALFA 10000UNITS/ML VIAL SUBCUT SCH (22:07)
[2021-10-09 22:30] VITALS: BP 168/80
[2021-10-09] MEDS: ZOLPIDEM TARTRATE 5MG TABLET PO PRN (23:54)
[2021-10-10] VITALS: BP 160/84
[2021-10-10] MEDS: DIPHENHYDRAMINE 50MG/ML VIAL IV PRN ×5 (00:07→20:30)
[2021-10-10] MEDS: HYDROCODONE/ACETAMINOPHEN 5/325MG TABLET PO PRN ×2 (02:23→09:48)
[2021-10-10] MEDS: HYDRALAZINE 20MG/ML VIAL IV PRN ×2 (03:17→16:56)
[2021-10-10 04:15] VITALS: BP 146/82
[2021-10-10] MEDS: NITROGLYCERIN OINT 1GM/INCH UDPKT TD SCH ×3 (05:58→22:16)
[2021-10-10] MEDS: GABAPENTIN 100MG CAPSULE PO SCH ×3 (05:58→22:16)
[2021-10-10] MEDS: METRONIDAZOLE 250MG TABLET PO SCH ×3 (05:58→22:16)
[2021-10-10] MEDS: BLOOD SUGAR DIAGNOSTIC STRIP TEST SCH ×4 (06:46→20:31)
[2021-10-10 08:00] VITALS: BP 160/69
[2021-10-10] MEDS: ASPIRIN 81MG TABLET PO SCH (08:28)
[2021-10-10] MEDS: CARVEDILOL 12.5MG TABLET PO SCH ×2 (08:28→20:31)
[2021-10-10] MEDS: PANTOPRAZOLE 40MG DR TABLET PO SCH (08:28)
[2021-10-10] MEDS: ACETAMINOPHEN 325MG TABLET PO PRN (08:28)
[2021-10-10] MEDS: INSULIN LISPRO 100 UNITS/ML SUBCUT SCH ×4 (08:31→20:32)
[2021-10-10] MEDS: METHYLPREDNISOLONE SOD SUCC 40 MG/ML VIAL IV SCH (08:36)
[2021-10-10] MEDS ORDERED: INSULIN GLARGINE UD 100 UNITS/ML SYR SUBCUT SCH (09:00)
[2021-10-10] MEDS: INSULIN GLARGINE UD 100 UNITS/ML SYR SUBCUT SCH ×2 (09:52→22:16)
[2021-10-10] MEDS: CARISOPRODOL 350 MG TABLET PO PRN ×2 (11:35→20:30)
[2021-10-10 12:05] VITALS: BP 149/74
[2021-10-10] MEDS ORDERED: MORPHINE SULFATE 2 MG/ML CPJ (NOT FOR IM USE) IV NR (12:15)
[2021-10-10] MEDS ORDERED: P20 MT (15:18)
[2021-10-10] MEDS ORDERED: ALBU90AE INH (15:19)
[2021-10-10 16:00] VITALS: BP 175/85
[2021-10-10] MEDS: CEFTRIAXONE 2 G in DEXTROSE 5% WATER 50 ML IV SCH (16:56)
[2021-10-10] MEDS: HYDROCODONE/ACETAMINOPHEN 10/325MG TABLET PO PRN (17:06)
[2021-10-10 20:00] VITALS: BP 166/75
[2021-10-10] MEDS: ONDANSETRON HCL 4MG/2ML INJ IV PRN (20:30)
[2021-10-10] MEDS: ZOLPIDEM TARTRATE 5MG TABLET PO PRN (22:21)
[2021-10-11] VITALS: BP 165/75
[2021-10-11] MEDS: HYDROCODONE/ACETAMINOPHEN 10/325MG TABLET PO PRN ×2 (00:10→09:28)
[2021-10-11] MEDS: DIPHENHYDRAMINE 50MG/ML VIAL IV PRN ×5 (01:30→20:19)
[2021-10-11 04:00] VITALS: BP 168/69
[2021-10-11] MEDS: ONDANSETRON HCL 4MG/2ML INJ IV PRN ×2 (05:32→12:19)
[2021-10-11] MEDS: GABAPENTIN 100MG CAPSULE PO SCH ×3 (05:35→21:08)
[2021-10-11] MEDS: METRONIDAZOLE 250MG TABLET PO SCH ×3 (05:35→21:06)
[2021-10-11] MEDS: BLOOD SUGAR DIAGNOSTIC STRIP TEST SCH ×4 (05:36→20:56)
[2021-10-11] MEDS: NITROGLYCERIN OINT 1GM/INCH UDPKT TD SCH ×3 (05:36→21:08)
[2021-10-11] MEDS: CARISOPRODOL 350 MG TABLET PO PRN ×2 (06:13→14:12)
[2021-10-11 08:00] VITALS: BP 160/79
[2021-10-11] MEDS: CARVEDILOL 12.5MG TABLET PO SCH ×2 (08:40→21:07)
[2021-10-11] MEDS: ASPIRIN 81MG TABLET PO SCH (08:40)
[2021-10-11] MEDS: PANTOPRAZOLE 40MG DR TABLET PO SCH (08:40)
[2021-10-11] MEDS: INSULIN LISPRO 100 UNITS/ML SUBCUT SCH ×4 (08:41→21:10)
[2021-10-11] MEDS: METHYLPREDNISOLONE SOD SUCC 40 MG/ML VIAL IV SCH (09:10)
[2021-10-11] MEDS: INSULIN GLARGINE UD 100 UNITS/ML SYR SUBCUT SCH ×2 (10:28→21:09)
[2021-10-11 10:57] LABS: BASOPHILS % 0.6 % (0.0-2.0); EOSINOPHILS % 0.6 % (0.0-5.0); HEMATOCRIT. 23.3 % (36.0-48.0); HEMOGLOBIN. 7.3 g/dL (12.0-16.0); LYMPHOCYTES % 16.1 % (20.0-50.0); MEAN CORPUSCULAR HEMOGLOBIN 27.4 pg (28.0-32.0); MEAN CORPUSCULAR VOLUME 88.1 fL (81.0-99.0); MEAN PLATELET VOLUME 9.2 fl (7.4-10.4); MONOCYTES % 13.4 % (2.0-8.0); NEUTROPHILS % 69.3 % (40.0-76.0); PLATELET 238 x1000/uL (130-400); RED BLOOD CELL COUNT 2.65 mill/uL (4.2-5.4); RED CELL DISTRIBUTION WIDTH 16.6 % (11.6-14.6)
[2021-10-11 12:00] VITALS: BP 159/93
[2021-10-11] MEDS ORDERED: METR500T PO (14:21)
[2021-10-11 16:00] VITALS: BP 156/79
[2021-10-11] MEDS: CEFTRIAXONE 2 G in DEXTROSE 5% WATER 50 ML IV SCH (16:42)
[2021-10-11] MEDS: MORPHINE SULFATE 2 MG/ML CPJ (NOT FOR IM USE) IV PRN ×2 (16:42→22:35)
[2021-10-11 20:00] VITALS: BP 182/91
[2021-10-11] MEDS: EPOETIN ALFA 10000UNITS/ML VIAL SUBCUT SCH (21:09)
[2021-10-11] MEDS: HYDRALAZINE 20MG/ML VIAL IV PRN (23:18)
[2021-10-12] VITALS (7 sets, daily range): BP systolic 156–169; BP diastolic 70–92
[2021-10-12] MEDS: DIPHENHYDRAMINE 50MG/ML VIAL IV PRN ×4 (01:07→16:17)
[2021-10-12] MEDS: METRONIDAZOLE 250MG TABLET PO SCH ×2 (06:08→13:43)
[2021-10-12] MEDS: GABAPENTIN 100MG CAPSULE PO SCH ×2 (06:08→13:42)
[2021-10-12] MEDS: NITROGLYCERIN OINT 1GM/INCH UDPKT TD SCH ×2 (06:08→13:43)
[2021-10-12] MEDS: CLONIDINE 0.1MG TABLET PO PRN ×2 (06:20→14:57)
[2021-10-12] MEDS: INSULIN LISPRO 100 UNITS/ML SUBCUT SCH ×3 (06:36→17:47)
[2021-10-12] MEDS: BLOOD SUGAR DIAGNOSTIC STRIP TEST SCH ×3 (06:36→16:49)
[2021-10-12] MEDS: CARISOPRODOL 350 MG TABLET PO PRN (07:02)
[2021-10-12 07:22] LABS: BASOPHILS % 0.7 % (0.0-2.0); EOSINOPHILS % 0.5 % (0.0-5.0); HEMATOCRIT. 24.4 % (36.0-48.0); HEMOGLOBIN. 7.7 g/dL (12.0-16.0); LYMPHOCYTES % 18.4 % (20.0-50.0); MEAN CORPUSCULAR HEMOGLOBIN 27.6 pg (28.0-32.0); MEAN CORPUSCULAR VOLUME 87.9 fL (81.0-99.0); MEAN PLATELET VOLUME 8.5 fl (7.4-10.4); MONOCYTES % 12.4 % (2.0-8.0); PLATELET 231 x1000/uL (130-400); RED BLOOD CELL COUNT 2.78 mill/uL (4.2-5.4); RED CELL DISTRIBUTION WIDTH 16.6 % (11.6-14.6)
[2021-10-12] MEDS: METHYLPREDNISOLONE SOD SUCC 40 MG/ML VIAL IV SCH (08:04)
[2021-10-12] MEDS: PANTOPRAZOLE 40MG DR TABLET PO SCH (08:04)
[2021-10-12] MEDS: ASPIRIN 81MG TABLET PO SCH (08:04)
[2021-10-12] MEDS: CARVEDILOL 12.5MG TABLET PO SCH (08:04)
[2021-10-12] MEDS: MORPHINE SULFATE 2 MG/ML CPJ (NOT FOR IM USE) IV PRN (08:05)
[2021-10-12] MEDS: INSULIN GLARGINE UD 100 UNITS/ML SYR SUBCUT SCH (09:46)
[2021-10-12] MEDS ORDERED: ZOLP5TAB2 MT (13:13)
[2021-10-12] MEDS ORDERED: DIPH25CA83 MT (13:13)
[2021-10-12] MEDS: HYDROCODONE/ACETAMINOPHEN 10/325MG TABLET PO PRN (14:58)
[2021-10-12] MEDS: CEFTRIAXONE 2 G in DEXTROSE 5% WATER 50 ML IV SCH (16:17)
== END 2021-10-12 20:20 | disposition left against medical advice (07) | DRG 133 ==
LOC: ER 13:19 → EDBEDREQ 16:09 → 6WST 16:11 → EDBEDREQTM 16:13 → ENRESERV 21:33 → CANBEDREQ 09-30 02:20 → CVICU 09-30 15:06 → 3WST 10-02 17:01 → CVICU 10-02 17:03 → 5WST 10-03 18:37 → 7WST 10-06 09:06 → 7EST 10-10 03:12
PROVIDERS: ADMIT Internal Medicine; ATTEND Internal Medicine
PROC: 5A1D70Z Performance of Urinary Filtration, Intermittent, Less than 6 Hours Per Day (ICD-10-PCS; 2021-09-29)
PROC: 5A1945Z Respiratory Ventilation, 24-96 Consecutive Hours (ICD-10-PCS; principal; 2021-09-30)
PROC: 0BH17EZ Insertion of Endotracheal Airway into Trachea, Via Natural or Artificial Opening (ICD-10-PCS; 2021-09-30)
PROC: 5A1D70Z Performance of Urinary Filtration, Intermittent, Less than 6 Hours Per Day (ICD-10-PCS; 2021-09-30)
PROC: 30233N1 Transfusion of Nonautologous Red Blood Cells into Peripheral Vein, Percutaneous Approach (ICD-10-PCS; 2021-10-01)
PROC: B54MZZA Ultrasonography of Right Upper Extremity Veins, Guidance (ICD-10-PCS; 2021-10-01)
PROC: 05HY33Z Insertion of Infusion Device into Upper Vein, Percutaneous Approach (ICD-10-PCS; 2021-10-01)
PROC: 5A1D70Z Performance of Urinary Filtration, Intermittent, Less than 6 Hours Per Day (ICD-10-PCS; 2021-10-02)
PROC: 5A1D70Z Performance of Urinary Filtration, Intermittent, Less than 6 Hours Per Day (ICD-10-PCS; 2021-10-04)
PROC: 5A1D70Z Performance of Urinary Filtration, Intermittent, Less than 6 Hours Per Day (ICD-10-PCS; 2021-10-06)
PROC: 5A1D70Z Performance of Urinary Filtration, Intermittent, Less than 6 Hours Per Day (ICD-10-PCS; 2021-10-09)
PROC: 5A1D70Z Performance of Urinary Filtration, Intermittent, Less than 6 Hours Per Day (ICD-10-PCS; 2021-10-11)
DX: J96.01 Acute respiratory failure with hypoxia (principal); U07.1 COVID-19; I13.2 Hypertensive heart and chronic kidney disease with heart failure and with stage 5 chronic kidney disease, or end stage renal disease; E87.1 Hypo-osmolality and hyponatremia; I27.29 Other secondary pulmonary hypertension; I42.9 Cardiomyopathy, unspecified; N18.6 End stage renal disease; I27.81 Cor pulmonale (chronic); E11.40 Type 2 diabetes mellitus with diabetic neuropathy, unspecified; E11.65 Type 2 diabetes mellitus with hyperglycemia; R26.2 Difficulty in walking, not elsewhere classified; E11.22 Type 2 diabetes mellitus with diabetic chronic kidney disease; I34.0 Nonrheumatic mitral (valve) insufficiency; M47.812 Spondylosis without myelopathy or radiculopathy, cervical region; M48.061 Spinal stenosis, lumbar region without neurogenic claudication; N39.0 Urinary tract infection, site not specified; L03.221 Cellulitis of neck; L03.313 Cellulitis of chest wall; B19.20 Unspecified viral hepatitis C without hepatic coma; D64.9 Anemia, unspecified; E78.5 Hyperlipidemia, unspecified; Z60.2 Problems related to living alone; T38.0X5A Adverse effect of glucocorticoids and synthetic analogues, initial encounter; M48.02 Spinal stenosis, cervical region; I50.32 Chronic diastolic (congestive) heart failure; M50.90 Cervical disc disorder, unspecified, unspecified cervical region; Z79.84 Long term (current) use of oral hypoglycemic drugs; Z79.899 Other long term (current) drug therapy; Z87.891 Personal history of nicotine dependence; Z91.19 Patient's noncompliance with other medical treatment and regimen; Z99.2 Dependence on renal dialysis; Z88.6 Allergy status to analgesic agent; Z88.1 Allergy status to other antibiotic agents; Z88.0 Allergy status to penicillin; Z88.8 Allergy status to other drugs, medicaments and biological substances; Z98.891 History of uterine scar from previous surgery; Y92.89 Other specified places as the place of occurrence of the external cause
CPT/HCPCS: 31500; 36415; 36600; 70360; 70491; 71045; 72141; 72148; 76937; 80048; 80053; 80061; 80305; 81003; 82375; 82550; 82553; 82805; 82962; 83036; 83605; 83735; 83880; 84132; 84145; 84443; 84478; 84484; 85014; 85018; 85025; 85027; 85049; 85384; 85651; 86140; 86705; 86709; 86803; 86850; 86900; 86920; 87070; 87340; 87426; 90732; 92610; 93005; 93306; 93923; 93970; 94002; 94003; 94640; 97162; 99291; C1725; C9113; J0330; J0360; J0696; J0885; J1200; J1644; J1650; J1815; J1956; J2020; J2270; J2405; J2920; J3490; J7040; J7060; P9016; Q9967; U0003; U0005; A4315

== ENCOUNTER 2021-11-06 17:06 | Inpatient (IN) | payer MEDICAID ==
[~2021-11-06] VITALS: Ht 167.6 cm; Wt 80.3 kg
[~2021-11-06 17:06] MED LIST changes: +ALBU90AE INH; +AMLO10TA80 PO; +CALC667C PO; +CLON0.1T PO; +DIPH25CA83 PO; +DULO30CA52 PO; +EMPA10TA PO; +FLUT16SP15 BOTHNSTRLS; +ISOS60TA76 PO; +METR500T PO; +P20 PO; +ROPI1TAB14 MT; +SACU1TAB7 PO; +SEVE800T8 MT; +ZOLP5TAB2 MT
[2021-11-06 19:42] LABS: BASOPHILS % 0.8 % (0.0-2.0); EOSINOPHILS % 0.4 % (0.0-5.0); HEMATOCRIT. 35.6 % (36.0-48.0); HEMOGLOBIN. 10.7 g/dL (12.0-16.0); LYMPHOCYTES % 8.1 % (20.0-50.0); MEAN CORPUSCULAR HEMOGLOBIN 26.3 pg (28.0-32.0); MEAN PLATELET VOLUME 9.7 fl (7.4-10.4); MONOCYTES % 10.2 % (2.0-8.0); NEUTROPHILS % 80.5 % (40.0-76.0); PLATELET 91 x1000/uL (130-400); RED BLOOD CELL COUNT 4.05 mill/uL (4.2-5.4); RED CELL DISTRIBUTION WIDTH 21.8 % (11.6-14.6)
[2021-11-06 19:47] LABS: CHLORIDE 99 mEq/L (98-107)
[2021-11-06] MEDS ORDERED: ACETAMINOPHEN 325MG TABLET PO ONE (20:45)
[2021-11-06] MEDS ORDERED: INSULIN REGULAR (HUMULIN R) 300UNITS/3ML VIAL SUBCUT ONE (20:45)
[2021-11-06] MEDS ORDERED: HYDROCODONE/ACETAMINOPHEN 5/325MG TABLET PO ONE (21:30)
[2021-11-06] MEDS ORDERED: INSULIN REGULAR (HUMULIN R) 300UNITS/3ML VIAL SUBCUT NR (23:45)
[2021-11-06] MEDS ORDERED: MORPHINE SULFATE 2 MG/ML CPJ (NOT FOR IM USE) IV PRN (23:45)
[2021-11-06] MEDS ORDERED: ONDANSETRON HCL 4MG TABLET PO PRN (23:45)
[2021-11-07] MEDS: ONDANSETRON HCL 4MG/2ML INJ IV PRN ×2 (04:36→11:18)
[2021-11-07] MEDS: MORPHINE SULFATE 2 MG/ML CPJ (NOT FOR IM USE) IV PRN ×4 (04:36→22:54)
[2021-11-07 09:10] VITALS: BP 151/78
[2021-11-07 09:30] VITALS: BP 151/78
[2021-11-07 11:19] LABS: BG BASE EXCESS -2.9 mmol/L (-2.0-2.0); BG CARBOXYHEMOGLOBIN 1.5 % (0.5-1.5); BG DEOXYHEMOGLOBIN 2.6 % (0.0-5.0); BG HCO3 ACT 22.4 mmol/L (22.0-26.0); BG METHEMOGLOBIN 0.4 % (0.0-1.5); BG OXYGEN SATURATION 97.3 % (92.0-98.5); BG OXYHEMOGLOBIN 95.5 % (94.0-97.0); BG PCO2 40.7 mmHg (35.0-45.0); BG PH 7.358 (7.350-7.450); BG PO2 94.5 mmHg (75.0-100.0); BG SAMPLE SITE RIGHT RADIAL; BG TOTAL HEMOGLOBIN 12.5 g/dL (12.0-18.0); BG VENT MODE NASAL CANNULA
[2021-11-07 12:00] VITALS: BP 165/79
[2021-11-07] MEDS: BLOOD SUGAR DIAGNOSTIC STRIP TEST SCH ×3 (12:34→21:00)
[2021-11-07 12:47] LABS: BASOPHILS % 0.9 % (0.0-2.0); HEMATOCRIT. 36.9 % (36.0-48.0); HEMOGLOBIN. 11.1 g/dL (12.0-16.0); LYMPHOCYTES % 12.4 % (20.0-50.0); MEAN CORPUSCULAR HEMOGLOBIN 25.8 pg (28.0-32.0); MEAN CORPUSCULAR VOLUME 85.9 fL (81.0-99.0); MEAN PLATELET VOLUME 9.5 fl (7.4-10.4); MONOCYTES % 12.3 % (2.0-8.0); NEUTROPHILS % 73.4 % (40.0-76.0); PLATELET 91 x1000/uL (130-400); RED BLOOD CELL COUNT 4.29 mill/uL (4.2-5.4); RED CELL DISTRIBUTION WIDTH 21.4 % (11.6-14.6)
[2021-11-07 12:56] LABS: CHLORIDE 103 mEq/L (98-107); INR 1.1; PROTHROMBIN TIME 11.3 sec (9.6-11.0)
[2021-11-07] MEDS: INSULIN LISPRO 100 UNITS/ML SUBCUT SCH ×3 (13:02→23:02)
[2021-11-07] MEDS: DIPHENHYDRAMINE 50MG/ML VIAL IV PRN ×2 (13:03→22:55)
[2021-11-07 13:07] LABS: LDL CHOLESTEROL 38 mg/dL (5-100)
[2021-11-07 13:09] LABS: HDL CHOLESTEROL 55 mg/dL (40-59)
[2021-11-07] MEDS ORDERED: IPRATROPIUM/ALBUTEROL 0.5-3(2.5)MG/3ML NEB HHN PRN (15:15)
[2021-11-07] MEDS ORDERED: ACETAMINOPHEN 650MG SUPP PR PRN (15:15)
[2021-11-07] MEDS ORDERED: LACTULOSE 20G/30ML UDC PO PRN (15:15)
[2021-11-07] MEDS ORDERED: DIPHENHYDRAMINE 50MG/ML VIAL IV NR (15:21)
[2021-11-07] MEDS ORDERED: NALOXONE HCL 0.4MG/ML VIAL IV PRN (15:45)
[2021-11-07 16:00] VITALS: BP 188/94
[2021-11-07] MEDS ORDERED: LEVOFLOXACIN 250MG PREMIX 50 ML IV NR (17:00)
[2021-11-07] MEDS: HYDRALAZINE 20MG/ML VIAL IV PRN (17:34)
[2021-11-07 18:16] LABS: HEPATITIS B SURFACE ANTIGEN NEGATIVE
[2021-11-07 20:00] VITALS: BP 107/53
[2021-11-07] MEDS: IPRATROPIUM/ALBUTEROL 0.5-3(2.5)MG/3ML NEB HHN SCH (20:12)
[2021-11-07] MEDS ORDERED: HEPARIN 5000 UNITS/ML VIAL SUBCUT SCH (21:00)
[2021-11-07] MEDS: FAMOTIDINE 20MG TABLET PO SCH (22:54)
[2021-11-08] VITALS: BP 139/72
[2021-11-08] MEDS: LORAZEPAM 2MG/ML CPJ IV PRN ×2 (00:53→11:19)
[2021-11-08] MEDS: IPRATROPIUM/ALBUTEROL 0.5-3(2.5)MG/3ML NEB HHN SCH ×4 (01:29→21:07)
[2021-11-08 04:00] VITALS: BP 134/73
[2021-11-08] MEDS: MORPHINE SULFATE 2 MG/ML CPJ (NOT FOR IM USE) IV PRN ×2 (06:45→16:23)
[2021-11-08] MEDS: BLOOD SUGAR DIAGNOSTIC STRIP TEST SCH ×4 (06:49→21:00)
[2021-11-08 08:13] VITALS: BP 168/71
[2021-11-08] MEDS: INSULIN LISPRO 100 UNITS/ML SUBCUT SCH ×4 (08:27→21:39)
[2021-11-08 08:38] LABS: HEMATOCRIT. 34.3 % (36.0-48.0); HEMOGLOBIN. 10.2 g/dL (12.0-16.0); MEAN CORPUSCULAR HEMOGLOBIN 25.5 pg (28.0-32.0); MEAN PLATELET VOLUME 9.4 fl (7.4-10.4); PLATELET 96 x1000/uL (130-400); RED BLOOD CELL COUNT 3.99 mill/uL (4.2-5.4); RED CELL DISTRIBUTION WIDTH 21.2 % (11.6-14.6)
[2021-11-08] MEDS: HYDRALAZINE 20MG/ML VIAL IV PRN (08:38)
[2021-11-08 08:55] LABS: CHLORIDE 103 mEq/L (98-107)
[2021-11-08 11:58] VITALS: BP 149/61
[2021-11-08] MEDS ORDERED: INSULIN GLARGINE 100 UNITS/ML SUBCUT SCH ×2 (13:00→22:00)
[2021-11-08] MEDS ORDERED: CEFTRIAXONE 2 G PREMIX 50 ML IV SCH (14:45)
[2021-11-08] MEDS: CEFTRIAXONE 2 G in DEXTROSE 5% WATER 50 ML IV SCH (16:10)
[2021-11-08] MEDS: METRONIDAZOLE 250MG TABLET PO SCH ×2 (16:10→21:38)
[2021-11-08 16:21] VITALS: BP 157/67
[2021-11-08] MEDS: DIPHENHYDRAMINE 50MG/ML VIAL IV PRN (17:15)
[2021-11-08 19:15] LABS: PLATELET ESTIMATE DECREASED
[2021-11-08 20:00] VITALS: BP 175/85
[2021-11-08] MEDS ORDERED: DIPHENHYDRAMINE 25MG CAPSULE PO NR (21:24)
[2021-11-08] MEDS: FAMOTIDINE 20MG TABLET PO SCH (21:38)
[2021-11-09] VITALS: BP 180/73
[2021-11-09] MEDS: MORPHINE SULFATE 2 MG/ML CPJ (NOT FOR IM USE) IV PRN ×4 (00:25→21:57)
[2021-11-09] MEDS: HYDRALAZINE 20MG/ML VIAL IV PRN ×3 (00:31→20:21)
[2021-11-09] MEDS: IPRATROPIUM/ALBUTEROL 0.5-3(2.5)MG/3ML NEB HHN SCH ×4 (01:14→18:00)
[2021-11-09] MEDS: LORAZEPAM 2MG/ML CPJ IV PRN ×3 (02:41→23:13)
[2021-11-09 04:00] VITALS: BP 171/75
[2021-11-09] MEDS: METRONIDAZOLE 250MG TABLET PO SCH ×3 (06:20→21:36)
[2021-11-09] MEDS: BLOOD SUGAR DIAGNOSTIC STRIP TEST SCH ×4 (06:21→21:17)
[2021-11-09 08:30] LABS: HEMATOCRIT. 34.6 % (36.0-48.0); HEMOGLOBIN. 10.3 g/dL (12.0-16.0); MEAN CORPUSCULAR HEMOGLOBIN 25.7 pg (28.0-32.0); MEAN CORPUSCULAR VOLUME 86.3 fL (81.0-99.0); MEAN PLATELET VOLUME 9.5 fl (7.4-10.4); PLATELET 95 x1000/uL (130-400); RED BLOOD CELL COUNT 4.01 mill/uL (4.2-5.4); RED CELL DISTRIBUTION WIDTH 20.5 % (11.6-14.6)
[2021-11-09] MEDS: INSULIN LISPRO 100 UNITS/ML SUBCUT SCH ×4 (08:55→21:38)
[2021-11-09] MEDS: DIPHENHYDRAMINE 50MG/ML VIAL IV PRN ×2 (10:02→20:35)
[2021-11-09] MEDS ORDERED: INSULIN GLARGINE 100 UNITS/ML SUBCUT NR (10:30)
[2021-11-09] MEDS ORDERED: LEVOFLOXACIN 250MG PREMIX 50 ML IV SCH (11:00)
[2021-11-09] MEDS: ONDANSETRON HCL 4MG/2ML INJ IV PRN ×2 (11:11→20:21)
[2021-11-09 12:30] VITALS: BP 176/86
[2021-11-09] MEDS ORDERED: LOSARTAN POTASSIUM 25 MG TABLET PO SCH (13:15)
[2021-11-09] MEDS: AMLODIPINE 10MG TABLET PO SCH (13:21)
[2021-11-09 13:58] LABS: PLATELET ESTIMATE DECREASED
[2021-11-09 16:30] VITALS: BP 192/100
[2021-11-09] MEDS: METHYLPREDNISOLONE SOD SUCC 40 MG/ML VIAL IV SCH ×2 (17:54→23:13)
[2021-11-09] MEDS: CEFTRIAXONE 2 G in DEXTROSE 5% WATER 50 ML IV SCH (17:54)
[2021-11-09 20:00] VITALS: BP 186/99
[2021-11-09] MEDS: FAMOTIDINE 20MG TABLET PO SCH (21:36)
[2021-11-09] MEDS: INSULIN GLARGINE 100 UNITS/ML SUBCUT SCH (21:38)
[2021-11-10] VITALS (7 sets, daily range): BP systolic 156–183; BP diastolic 68–92
[2021-11-10] MEDS: MORPHINE SULFATE 2 MG/ML CPJ (NOT FOR IM USE) IV PRN ×3 (02:03→19:31)
[2021-11-10] MEDS: DIPHENHYDRAMINE 50MG/ML VIAL IV PRN ×3 (03:27→19:31)
[2021-11-10] MEDS: HYDRALAZINE 20MG/ML VIAL IV PRN ×2 (03:34→12:42)
[2021-11-10] MEDS: LORAZEPAM 2MG/ML CPJ IV PRN ×2 (05:24→22:51)
[2021-11-10] MEDS: METRONIDAZOLE 250MG TABLET PO SCH ×3 (05:24→21:40)
[2021-11-10] MEDS: NYSTATIN POWDER 15GM TOP SCH ×3 (05:24→21:41)
[2021-11-10] MEDS: BLOOD SUGAR DIAGNOSTIC STRIP TEST SCH ×4 (06:29→21:26)
[2021-11-10] MEDS: INSULIN LISPRO 100 UNITS/ML SUBCUT SCH ×5 (06:44→21:42)
[2021-11-10] MEDS ORDERED: INSULIN LISPRO 100 UNITS/ML SUBCUT SCH (06:45)
[2021-11-10] MEDS: IPRATROPIUM/ALBUTEROL 0.5-3(2.5)MG/3ML NEB HHN SCH ×3 (07:55→20:35)
[2021-11-10] MEDS: METHYLPREDNISOLONE SOD SUCC 40 MG/ML VIAL IV SCH ×2 (09:17→21:39)
[2021-11-10] MEDS: AMLODIPINE 10MG TABLET PO SCH (09:18)
[2021-11-10] MEDS: INSULIN GLARGINE 100 UNITS/ML SUBCUT SCH ×2 (12:45→21:43)
[2021-11-10 12:58] LABS: BASOPHILS % 0.7 % (0.0-2.0); HEMATOCRIT. 33.4 % (36.0-48.0); HEMOGLOBIN. 9.9 g/dL (12.0-16.0); LYMPHOCYTES % 12.9 % (20.0-50.0); MEAN CORPUSCULAR HEMOGLOBIN 25.9 pg (28.0-32.0); MEAN CORPUSCULAR VOLUME 86.8 fL (81.0-99.0); MEAN PLATELET VOLUME 9.7 fl (7.4-10.4); MONOCYTES % 4.2 % (2.0-8.0); NEUTROPHILS % 82.2 % (40.0-76.0); PLATELET 105 x1000/uL (130-400); RED BLOOD CELL COUNT 3.85 mill/uL (4.2-5.4); RED CELL DISTRIBUTION WIDTH 19.8 % (11.6-14.6)
[2021-11-10] MEDS: VENLAFAXINE HCL 37.5MG SR CAPSULE 24HR PO SCH (14:59)
[2021-11-10] MEDS: GABAPENTIN 100MG CAPSULE PO SCH ×2 (15:01→21:40)
[2021-11-10] MEDS ORDERED: LIDOCAINE HCL/PF 1% 2ML VIAL ONE (16:18)
[2021-11-10] MEDS: CEFTRIAXONE 2 G in DEXTROSE 5% WATER 50 ML IV SCH (17:00)
[2021-11-10 17:50] LABS: BG BASE EXCESS -2.4 mmol/L (-2.0-2.0); BG CARBOXYHEMOGLOBIN 0.7 % (0.5-1.5); BG DEOXYHEMOGLOBIN 1.9 % (0.0-5.0); BG FRACTION INSPIRED OXYGEN 32; BG METHEMOGLOBIN 0.2 % (0.0-1.5); BG OXYGEN SATURATION 98.1 % (92.0-98.5); BG OXYHEMOGLOBIN 97.2 % (94.0-97.0); BG PH 7.357 (7.350-7.450); BG PO2 104.5 mmHg (75.0-100.0); BG SAMPLE SITE RIGHT RADIAL; BG TOTAL HEMOGLOBIN 11.9 g/dL (12.0-18.0); BG VENT MODE NASAL CANNULA
[2021-11-10] MEDS: ONDANSETRON HCL 4MG/2ML INJ IV PRN (20:54)
[2021-11-10] MEDS: TRAZODONE HCL 50MG TABLET PO SCH (21:40)
[2021-11-10] MEDS: FAMOTIDINE 20MG TABLET PO SCH (21:40)
[2021-11-11] VITALS: BP 159/75
[2021-11-11] MEDS: MORPHINE SULFATE 2 MG/ML CPJ (NOT FOR IM USE) IV PRN ×5 (01:01→22:19)
[2021-11-11] MEDS: ZOLPIDEM TARTRATE 5MG TABLET PO PRN ×2 (01:09→21:31)
[2021-11-11] MEDS: IPRATROPIUM/ALBUTEROL 0.5-3(2.5)MG/3ML NEB HHN SCH ×4 (02:53→20:43)
[2021-11-11 04:00] VITALS: BP 166/80
[2021-11-11] MEDS: HYDRALAZINE 20MG/ML VIAL IV PRN ×3 (04:31→17:08)
[2021-11-11] MEDS: NYSTATIN POWDER 15GM TOP SCH ×3 (05:15→21:36)
[2021-11-11] MEDS: ONDANSETRON HCL 4MG/2ML INJ IV PRN ×3 (05:15→19:14)
[2021-11-11] MEDS: GABAPENTIN 100MG CAPSULE PO SCH ×3 (05:15→21:31)
[2021-11-11] MEDS: METRONIDAZOLE 250MG TABLET PO SCH ×3 (05:15→21:31)
[2021-11-11] MEDS: BLOOD SUGAR DIAGNOSTIC STRIP TEST SCH ×4 (06:24→20:36)
[2021-11-11 06:37] LABS: BASOPHILS % 0.6 % (0.0-2.0); HEMATOCRIT. 37.4 % (36.0-48.0); HEMOGLOBIN. 11.3 g/dL (12.0-16.0); LYMPHOCYTES % 9.8 % (20.0-50.0); MEAN CORPUSCULAR HEMOGLOBIN 25.7 pg (28.0-32.0); MEAN CORPUSCULAR VOLUME 84.7 fL (81.0-99.0); MEAN PLATELET VOLUME 9.4 fl (7.4-10.4); MONOCYTES % 2.5 % (2.0-8.0); NEUTROPHILS % 87.1 % (40.0-76.0); PLATELET 139 x1000/uL (130-400); RED BLOOD CELL COUNT 4.42 mill/uL (4.2-5.4)
[2021-11-11 08:00] VITALS: BP 164/89
[2021-11-11] MEDS: LOSARTAN POTASSIUM 50 MG TABLET PO SCH (08:23)
[2021-11-11] MEDS: VENLAFAXINE HCL 37.5MG SR CAPSULE 24HR PO SCH (08:23)
[2021-11-11] MEDS: AMLODIPINE 10MG TABLET PO SCH (08:23)
[2021-11-11] MEDS: METHYLPREDNISOLONE SOD SUCC 40 MG/ML VIAL IV SCH ×2 (08:23→21:31)
[2021-11-11] MEDS: INSULIN LISPRO 100 UNITS/ML SUBCUT SCH ×7 (08:25→21:34)
[2021-11-11] MEDS: DIPHENHYDRAMINE 50MG/ML VIAL IV PRN ×3 (08:50→17:09)
[2021-11-11] MEDS: INSULIN GLARGINE 100 UNITS/ML SUBCUT SCH ×2 (11:14→21:33)
[2021-11-11] MEDS: LORAZEPAM 2MG/ML CPJ IV PRN ×2 (11:16→19:14)
[2021-11-11 12:00] VITALS: BP 146/67
[2021-11-11 16:00] VITALS: BP 169/81
[2021-11-11] MEDS: CEFTRIAXONE 2 G in DEXTROSE 5% WATER 50 ML IV SCH (17:08)
[2021-11-11 20:00] VITALS: BP 147/69
[2021-11-11] MEDS: TRAZODONE HCL 50MG TABLET PO SCH (21:31)
[2021-11-11] MEDS: FLUTICASONE PROPIONATE 50MCG/SPRAY BOTTLE BOTHNSTRLS SCH (21:36)
[2021-11-11] MEDS: FAMOTIDINE 20MG TABLET PO SCH (21:36)
[2021-11-12] VITALS: BP 142/71
[2021-11-12] MEDS: IPRATROPIUM/ALBUTEROL 0.5-3(2.5)MG/3ML NEB HHN SCH ×3 (01:14→20:05)
[2021-11-12] MEDS: DIPHENHYDRAMINE 50MG/ML VIAL IV PRN ×5 (01:30→22:10)
[2021-11-12] MEDS: ONDANSETRON HCL 4MG/2ML INJ IV PRN ×4 (01:30→20:35)
[2021-11-12] MEDS: MORPHINE SULFATE 2 MG/ML CPJ (NOT FOR IM USE) IV PRN ×5 (03:00→20:34)
[2021-11-12 04:00] VITALS: BP 147/64
[2021-11-12] MEDS: METRONIDAZOLE 250MG TABLET PO SCH ×3 (06:44→22:07)
[2021-11-12] MEDS: LORAZEPAM 2MG/ML CPJ IV PRN ×3 (06:44→22:09)
[2021-11-12] MEDS: GABAPENTIN 100MG CAPSULE PO SCH ×3 (06:44→22:07)
[2021-11-12] MEDS: BLOOD SUGAR DIAGNOSTIC STRIP TEST SCH ×4 (06:44→21:00)
[2021-11-12] MEDS: NYSTATIN POWDER 15GM TOP SCH ×3 (06:44→22:00)
[2021-11-12] MEDS: INSULIN LISPRO 100 UNITS/ML SUBCUT SCH ×7 (06:46→23:02)
[2021-11-12] MEDS: HYDRALAZINE 20MG/ML VIAL IV PRN ×3 (07:54→22:23)
[2021-11-12 08:00] VITALS: BP 179/99
[2021-11-12] MEDS: AMLODIPINE 10MG TABLET PO SCH (08:00)
[2021-11-12] MEDS: METHYLPREDNISOLONE SOD SUCC 40 MG/ML VIAL IV SCH ×2 (08:00→22:04)
[2021-11-12] MEDS: VENLAFAXINE HCL 37.5MG SR CAPSULE 24HR PO SCH (08:00)
[2021-11-12] MEDS: LOSARTAN POTASSIUM 50 MG TABLET PO SCH (08:00)
[2021-11-12] MEDS: INSULIN GLARGINE 100 UNITS/ML SUBCUT SCH ×2 (10:03→23:03)
[2021-11-12] MEDS: FLUTICASONE PROPIONATE 50MCG/SPRAY BOTTLE BOTHNSTRLS SCH ×2 (10:03→22:03)
[2021-11-12] MEDS ORDERED: REGADENOSON 0.4 MG/5 ML IV NR (11:00)
[2021-11-12 12:00] VITALS: BP 159/77
[2021-11-12] MEDS ORDERED: GUAIFENESIN/CODEINE 200-20MG/10ML UDC PO PRN (13:00)
[2021-11-12 15:34] LABS: HEMOGLOBIN. 10.6 g/dL (12.0-16.0); MEAN CORPUSCULAR HEMOGLOBIN 25.4 pg (28.0-32.0); MEAN CORPUSCULAR VOLUME 86.3 fL (81.0-99.0); MEAN PLATELET VOLUME 8.8 fl (7.4-10.4); PLATELET 190 x1000/uL (130-400); RED BLOOD CELL COUNT 4.18 mill/uL (4.2-5.4); RED CELL DISTRIBUTION WIDTH 19.9 % (11.6-14.6)
[2021-11-12 16:12] VITALS: BP 163/77
[2021-11-12] MEDS: CEFTRIAXONE 2 G in DEXTROSE 5% WATER 50 ML IV SCH (16:24)
[2021-11-12] MEDS ORDERED: INSULIN LISPRO 100 UNITS/ML SUBCUT NR (17:00)
[2021-11-12 18:15] LABS: PLATELET ESTIMATE NORMAL
[2021-11-12 20:00] VITALS: BP 169/75
[2021-11-12] MEDS: TRAZODONE HCL 50MG TABLET PO SCH (22:06)
[2021-11-12] MEDS: METOPROLOL TARTRATE 50MG TABLET PO SCH (22:06)
[2021-11-12] MEDS: FAMOTIDINE 20MG TABLET PO SCH (22:07)
[2021-11-13] VITALS: BP 148/77
[2021-11-13] MEDS: IPRATROPIUM/ALBUTEROL 0.5-3(2.5)MG/3ML NEB HHN SCH ×4 (01:22→20:35)
[2021-11-13 04:00] VITALS: BP 149/71
[2021-11-13] MEDS: NYSTATIN POWDER 15GM TOP SCH ×2 (06:00→14:00)
[2021-11-13] MEDS: METRONIDAZOLE 250MG TABLET PO SCH ×2 (06:07→15:28)
[2021-11-13] MEDS: GABAPENTIN 100MG CAPSULE PO SCH ×3 (06:07→22:00)
[2021-11-13] MEDS: DIPHENHYDRAMINE 50MG/ML VIAL IV PRN ×3 (06:09→19:46)
[2021-11-13] MEDS: MORPHINE SULFATE 2 MG/ML CPJ (NOT FOR IM USE) IV PRN ×3 (06:10→16:17)
[2021-11-13 06:14] LABS: BASOPHILS % 0.8 % (0.0-2.0); EOSINOPHILS % 0.2 % (0.0-5.0); HEMATOCRIT. 39.7 % (36.0-48.0); LYMPHOCYTES % 16.4 % (20.0-50.0); MEAN CORPUSCULAR HEMOGLOBIN 25.3 pg (28.0-32.0); MEAN CORPUSCULAR VOLUME 83.4 fL (81.0-99.0); MEAN PLATELET VOLUME 8.9 fl (7.4-10.4); MONOCYTES % 11.4 % (2.0-8.0); NEUTROPHILS % 71.2 % (40.0-76.0); PLATELET 282 x1000/uL (130-400); RED BLOOD CELL COUNT 4.76 mill/uL (4.2-5.4); RED CELL DISTRIBUTION WIDTH 19.4 % (11.6-14.6)
[2021-11-13] MEDS: BLOOD SUGAR DIAGNOSTIC STRIP TEST SCH ×4 (06:41→21:00)
[2021-11-13] MEDS: INSULIN LISPRO 100 UNITS/ML SUBCUT SCH ×7 (07:20→21:00)
[2021-11-13 08:00] VITALS: BP 153/77
[2021-11-13] MEDS: LORAZEPAM 2MG/ML CPJ IV PRN ×2 (08:37→18:09)
[2021-11-13] MEDS: LOSARTAN POTASSIUM 100 MG TABLET PO SCH (08:37)
[2021-11-13] MEDS: METHYLPREDNISOLONE SOD SUCC 40 MG/ML VIAL IV SCH (08:37)
[2021-11-13] MEDS: AMLODIPINE 10MG TABLET PO SCH (08:38)
[2021-11-13] MEDS: METOPROLOL TARTRATE 50MG TABLET PO SCH (08:38)
[2021-11-13] MEDS: FLUTICASONE PROPIONATE 50MCG/SPRAY BOTTLE BOTHNSTRLS SCH (08:39)
[2021-11-13] MEDS ORDERED: VENLAFAXINE HCL 37.5MG SR CAPSULE 24HR PO SCH (09:00)
[2021-11-13] MEDS: METOPROLOL TARTRATE 100MG TABLET PO SCH ×2 (10:00→21:00)
[2021-11-13] MEDS: INSULIN GLARGINE 100 UNITS/ML SUBCUT SCH ×2 (11:28→22:00)
[2021-11-13 12:00] VITALS: BP 128/72
[2021-11-13] MEDS: VENLAFAXINE HCL 37.5MG SR CAPSULE 24HR PO SCH ×2 (13:16→21:00)
[2021-11-13 16:00] VITALS: BP 146/85
[2021-11-13] MEDS: CEFTRIAXONE 2 G in DEXTROSE 5% WATER 50 ML IV SCH (16:18)
[2021-11-13 16:25] LABS: INR 1.1; PARTIAL THROMBOPLASTIN TIME 28.9 sec (23.4-31.0); PROTHROMBIN TIME 12.1 sec (9.6-11.0)
[2021-11-13 20:00] VITALS: BP 147/86
[2021-11-13] MEDS: FAMOTIDINE 20MG TABLET PO SCH (21:00)
[2021-11-13] MEDS: TRAZODONE HCL 50MG TABLET PO SCH (21:00)
[2021-11-13] MEDS ORDERED: METOPROLOL TARTRATE 50MG TABLET ONE (23:56)
[2021-11-14] VITALS: BP 149/77
[2021-11-14] MEDS: METHYLPREDNISOLONE SOD SUCC 40 MG/ML VIAL IV SCH ×3 (00:51→22:37)
[2021-11-14] MEDS: FLUTICASONE PROPIONATE 50MCG/SPRAY BOTTLE BOTHNSTRLS SCH ×2 (00:52→10:13)
[2021-11-14] MEDS: NYSTATIN POWDER 15GM TOP SCH ×4 (00:53→22:56)
[2021-11-14] MEDS: IPRATROPIUM/ALBUTEROL 0.5-3(2.5)MG/3ML NEB HHN SCH ×4 (01:48→18:00)
[2021-11-14] MEDS: MORPHINE SULFATE 2 MG/ML CPJ (NOT FOR IM USE) IV PRN ×3 (02:11→20:23)
[2021-11-14] MEDS: DIPHENHYDRAMINE 50MG/ML VIAL IV PRN ×3 (02:11→20:23)
[2021-11-14] MEDS: DEXTROSE 50% WATER 50ML SYRINGE IV PRN (02:23)
[2021-11-14] MEDS: ONDANSETRON HCL 4MG/2ML INJ IV PRN ×3 (02:24→22:58)
[2021-11-14 04:00] VITALS: BP 147/78
[2021-11-14] MEDS: GABAPENTIN 100MG CAPSULE PO SCH ×3 (04:51→22:39)
[2021-11-14] MEDS: LORAZEPAM 2MG/ML CPJ IV PRN ×2 (05:27→17:55)
[2021-11-14] MEDS: INSULIN LISPRO 100 UNITS/ML SUBCUT SCH ×7 (05:28→22:55)
[2021-11-14] MEDS: BLOOD SUGAR DIAGNOSTIC STRIP TEST SCH ×4 (05:28→21:00)
[2021-11-14] MEDS ORDERED: LIDOCAINE HCL 1% 20ML VIAL (Pyxis) INJ ONE (07:22)
[2021-11-14 08:00] VITALS: BP 159/82
[2021-11-14] MEDS ORDERED: DOBUTAMINE 250 MG in DEXT 5% WATER 230 ML IV SCH (08:00)
[2021-11-14] MEDS ORDERED: DOBUTAMINE 250MG PREMIX 250 ML IV SCH (08:00)
[2021-11-14] MEDS ORDERED: SODIUM BICARBONATE 4% (2.4MEQ) 5ML VIAL IV ONE (08:58)
[2021-11-14] MEDS: INSULIN GLARGINE 100 UNITS/ML SUBCUT SCH ×2 (10:00→22:56)
[2021-11-14] MEDS: LOSARTAN POTASSIUM 100 MG TABLET PO SCH (10:13)
[2021-11-14] MEDS: VENLAFAXINE HCL 37.5MG SR CAPSULE 24HR PO SCH ×2 (10:13→22:45)
[2021-11-14] MEDS: METOPROLOL TARTRATE 100MG TABLET PO SCH ×2 (10:14→22:47)
[2021-11-14] MEDS: AMLODIPINE 10MG TABLET PO SCH (10:15)
[2021-11-14 12:00] VITALS: BP 147/77
[2021-11-14] MEDS ORDERED: LIDOCAINE HCL/PF 1% 2ML VIAL ONE (13:43)
[2021-11-14 16:00] VITALS: BP 148/68
[2021-11-14] MEDS: CEFTRIAXONE 2 G in DEXTROSE 5% WATER 50 ML IV SCH (17:55)
[2021-11-14 20:00] VITALS: BP 153/69
[2021-11-14] MEDS: TRAZODONE HCL 50MG TABLET PO SCH (22:37)
[2021-11-14] MEDS: FAMOTIDINE 20MG TABLET PO SCH (22:39)
[2021-11-15] VITALS: BP 145/62
[2021-11-15 04:00] VITALS: BP 149/87
[2021-11-15] MEDS: DIPHENHYDRAMINE 50MG/ML VIAL IV PRN ×4 (04:00→23:03)
[2021-11-15] MEDS: MORPHINE SULFATE 2 MG/ML CPJ (NOT FOR IM USE) IV PRN ×4 (04:00→21:23)
[2021-11-15] MEDS: LORAZEPAM 2MG/ML CPJ IV PRN ×3 (05:50→22:04)
[2021-11-15] MEDS: ONDANSETRON HCL 4MG/2ML INJ IV PRN ×2 (05:50→12:30)
[2021-11-15] MEDS: BLOOD SUGAR DIAGNOSTIC STRIP TEST SCH ×4 (06:46→20:29)
[2021-11-15] MEDS: GABAPENTIN 100MG CAPSULE PO SCH ×3 (06:52→21:18)
[2021-11-15] MEDS: NYSTATIN POWDER 15GM TOP SCH ×3 (06:52→21:18)
[2021-11-15] MEDS: IPRATROPIUM/ALBUTEROL 0.5-3(2.5)MG/3ML NEB HHN SCH ×4 (07:34→22:28)
[2021-11-15 08:00] VITALS: BP 165/87
[2021-11-15] MEDS: METHYLPREDNISOLONE SOD SUCC 40 MG/ML VIAL IV SCH ×2 (08:31→21:16)
[2021-11-15] MEDS: VENLAFAXINE HCL 37.5MG SR CAPSULE 24HR PO SCH ×2 (08:32→21:17)
[2021-11-15] MEDS: AMLODIPINE 10MG TABLET PO SCH (08:32)
[2021-11-15] MEDS: LOSARTAN POTASSIUM 100 MG TABLET PO SCH (08:34)
[2021-11-15] MEDS: METOPROLOL TARTRATE 100MG TABLET PO SCH ×2 (08:34→21:17)
[2021-11-15] MEDS: INSULIN LISPRO 100 UNITS/ML SUBCUT SCH ×6 (08:35→20:30)
[2021-11-15] MEDS: INSULIN GLARGINE 100 UNITS/ML SUBCUT SCH ×2 (09:13→21:18)
[2021-11-15 09:39] LABS: BG DEOXYHEMOGLOBIN 13.8 % (0.0-5.0); BG FRACTION INSPIRED OXYGEN 28; BG METHEMOGLOBIN 0.5 % (0.0-1.5); BG OXYHEMOGLOBIN 84.7 % (94.0-97.0); BG PCO2 51.2 mmHg (35.0-45.0); BG PH 7.209 (7.350-7.450); BG PO2 56.2 mmHg (75.0-100.0); BG SAMPLE SITE RIGHT RADIAL; BG TOTAL HEMOGLOBIN 12.3 g/dL (12.0-18.0); BG VENT MODE NASAL CANNULA
[2021-11-15 10:57] LABS: BG BASE EXCESS -5.3 mmol/L (-2.0-2.0); BG CARBOXYHEMOGLOBIN 0.8 % (0.5-1.5); BG DEOXYHEMOGLOBIN 2.5 % (0.0-5.0); BG FRACTION INSPIRED OXYGEN 32; BG HCO3 ACT 21.5 mmol/L (22.0-26.0); BG METHEMOGLOBIN 0.4 % (0.0-1.5); BG OXYGEN SATURATION 97.5 % (92.0-98.5); BG OXYHEMOGLOBIN 96.3 % (94.0-97.0); BG PH 7.278 (7.350-7.450); BG SAMPLE SITE RIGHT RADIAL; BG TOTAL HEMOGLOBIN 12.2 g/dL (12.0-18.0); BG VENT MODE NASAL CANNULA
[2021-11-15 11:54] LABS: BASOPHILS % 0.4 % (0.0-2.0); HEMOGLOBIN. 10.9 g/dL (12.0-16.0); LYMPHOCYTES % 8.3 % (20.0-50.0); MEAN CORPUSCULAR HEMOGLOBIN 25.6 pg (28.0-32.0); MEAN CORPUSCULAR VOLUME 82.2 fL (81.0-99.0); MEAN PLATELET VOLUME 8.7 fl (7.4-10.4); MONOCYTES % 6.2 % (2.0-8.0); NEUTROPHILS % 85.1 % (40.0-76.0); PLATELET 327 x1000/uL (130-400); RED BLOOD CELL COUNT 4.25 mill/uL (4.2-5.4); RED CELL DISTRIBUTION WIDTH 19.4 % (11.6-14.6)
[2021-11-15 12:00] VITALS: BP 137/75
[2021-11-15 15:57] VITALS: BP 144/75
[2021-11-15] MEDS ORDERED: LACTULOSE 20G/30ML UDC PO NR (16:15)
[2021-11-15 16:47] LABS: HEPATITIS B SURFACE ANTIGEN NEGATIVE
[2021-11-15] MEDS: CEFTRIAXONE 2 G in DEXTROSE 5% WATER 50 ML IV SCH (17:17)
[2021-11-15 20:00] VITALS: BP 160/81
[2021-11-15] MEDS: TRAZODONE HCL 50MG TABLET PO SCH (21:17)
[2021-11-15] MEDS: FAMOTIDINE 20MG TABLET PO SCH (21:17)
[2021-11-16] VITALS: BP 149/66
[2021-11-16] MEDS: IPRATROPIUM/ALBUTEROL 0.5-3(2.5)MG/3ML NEB HHN SCH ×4 (02:26→21:09)
[2021-11-16 04:00] VITALS: BP 153/72
[2021-11-16] MEDS: GABAPENTIN 100MG CAPSULE PO SCH ×3 (06:38→22:14)
[2021-11-16] MEDS: NYSTATIN POWDER 15GM TOP SCH ×3 (06:38→22:30)
[2021-11-16] MEDS: BLOOD SUGAR DIAGNOSTIC STRIP TEST SCH ×4 (06:38→20:38)
[2021-11-16 07:40] LABS: BASOPHILS % 0.3 % (0.0-2.0); HEMATOCRIT. 38.4 % (36.0-48.0); HEMOGLOBIN. 11.7 g/dL (12.0-16.0); MEAN CORPUSCULAR HEMOGLOBIN 25.3 pg (28.0-32.0); MEAN CORPUSCULAR VOLUME 83.1 fL (81.0-99.0); MEAN PLATELET VOLUME 8.8 fl (7.4-10.4); MONOCYTES % 2.8 % (2.0-8.0); NEUTROPHILS % 82.9 % (40.0-76.0); PLATELET 332 x1000/uL (130-400); RED BLOOD CELL COUNT 4.62 mill/uL (4.2-5.4); RED CELL DISTRIBUTION WIDTH 18.9 % (11.6-14.6)
[2021-11-16] MEDS: INSULIN LISPRO 100 UNITS/ML SUBCUT SCH ×4 (07:50→22:15)
[2021-11-16 08:00] VITALS: BP 160/77
[2021-11-16 08:29] LABS: BG BASE EXCESS -5.9 mmol/L (-2.0-2.0); BG CARBOXYHEMOGLOBIN 1.1 % (0.5-1.5); BG DEOXYHEMOGLOBIN 3.2 % (0.0-5.0); BG METHEMOGLOBIN 0.4 % (0.0-1.5); BG OXYGEN SATURATION 96.8 % (92.0-98.5); BG OXYHEMOGLOBIN 95.3 % (94.0-97.0); BG PCO2 46.4 mmHg (35.0-45.0); BG PH 7.273 (7.350-7.450); BG PO2 96.4 mmHg (75.0-100.0); BG SAMPLE SITE RIGHT RADIAL; BG TOTAL HEMOGLOBIN 12.9 g/dL (12.0-18.0); BG VENT MODE NASAL CANNULA
[2021-11-16] MEDS: INSULIN GLARGINE 100 UNITS/ML SUBCUT SCH ×2 (10:00→22:14)
[2021-11-16] MEDS: VENLAFAXINE HCL 37.5MG SR CAPSULE 24HR PO SCH ×2 (10:30→20:37)
[2021-11-16] MEDS: METHYLPREDNISOLONE SOD SUCC 40 MG/ML VIAL IV SCH ×2 (10:30→20:36)
[2021-11-16] MEDS: MORPHINE SULFATE 2 MG/ML CPJ (NOT FOR IM USE) IV PRN (10:30)
[2021-11-16] MEDS: LOSARTAN POTASSIUM 100 MG TABLET PO SCH (10:30)
[2021-11-16] MEDS: AMLODIPINE 10MG TABLET PO SCH (10:31)
[2021-11-16] MEDS: DIPHENHYDRAMINE 50MG/ML VIAL IV PRN ×3 (10:31→18:35)
[2021-11-16] MEDS: METOPROLOL TARTRATE 100MG TABLET PO SCH ×2 (10:31→20:37)
[2021-11-16] MEDS: ONDANSETRON HCL 4MG/2ML INJ IV PRN ×2 (11:50→20:36)
[2021-11-16] MEDS: LORAZEPAM 2MG/ML CPJ IV PRN ×2 (11:50→20:36)
[2021-11-16 12:00] VITALS: BP 156/75
[2021-11-16] MEDS: GUAIFENESIN 600MG ER TABLET PO SCH ×2 (14:47→20:37)
[2021-11-16] MEDS: MORPHINE SULFATE 4 MG/ML CPJ (NOT FOR IM USE) IV PRN ×2 (14:47→18:35)
[2021-11-16 15:56] VITALS: BP 143/68
[2021-11-16 20:00] VITALS: BP 159/64
[2021-11-16] MEDS: FAMOTIDINE 20MG TABLET PO SCH (20:37)
[2021-11-16] MEDS: TRAZODONE HCL 50MG TABLET PO SCH (20:37)
[2021-11-17] VITALS: BP 160/80
[2021-11-17] MEDS: DIPHENHYDRAMINE 50MG/ML VIAL IV PRN ×4 (02:33→22:16)
[2021-11-17] MEDS ORDERED: MORPHINE SULFATE 2 MG/ML CPJ (NOT FOR IM USE) IV PRN (02:45)
[2021-11-17 04:00] VITALS: BP 121/67
[2021-11-17] MEDS: IPRATROPIUM/ALBUTEROL 0.5-3(2.5)MG/3ML NEB HHN SCH ×4 (04:04→21:33)
[2021-11-17] MEDS: NYSTATIN POWDER 15GM TOP SCH ×3 (06:39→22:18)
[2021-11-17] MEDS: BLOOD SUGAR DIAGNOSTIC STRIP TEST SCH ×4 (06:39→21:00)
[2021-11-17] MEDS: GABAPENTIN 100MG CAPSULE PO SCH ×3 (06:39→22:09)
[2021-11-17 08:00] VITALS: BP 106/87
[2021-11-17] MEDS: METHYLPREDNISOLONE SOD SUCC 40 MG/ML VIAL IV SCH (08:44)
[2021-11-17] MEDS: INSULIN LISPRO 100 UNITS/ML SUBCUT SCH ×4 (08:47→22:12)
[2021-11-17] MEDS: AMLODIPINE 10MG TABLET PO SCH (09:00)
[2021-11-17] MEDS: METOPROLOL TARTRATE 100MG TABLET PO SCH ×2 (09:00→22:09)
[2021-11-17] MEDS: LOSARTAN POTASSIUM 100 MG TABLET PO SCH (09:00)
[2021-11-17] MEDS: VENLAFAXINE HCL 37.5MG SR CAPSULE 24HR PO SCH ×2 (10:26→22:10)
[2021-11-17] MEDS: LORAZEPAM 2MG/ML CPJ IV PRN (10:26)
[2021-11-17] MEDS: GUAIFENESIN 600MG ER TABLET PO SCH ×2 (10:26→22:09)
[2021-11-17] MEDS: INSULIN GLARGINE 100 UNITS/ML SUBCUT SCH ×2 (10:36→22:13)
[2021-11-17 12:00] VITALS: BP 167/76
[2021-11-17] MEDS: HYDROCODONE/ACETAMINOPHEN 5/325MG TABLET PO PRN ×2 (12:03→18:23)
[2021-11-17] MEDS: HYDRALAZINE 20MG/ML VIAL IV PRN (13:43)
[2021-11-17 16:00] VITALS: BP 138/75
[2021-11-17 20:00] VITALS: BP 174/67
[2021-11-17] MEDS ORDERED: NALOXONE HCL 0.4MG/ML VIAL IV PRN (21:45)
[2021-11-17] MEDS: TRAZODONE HCL 50MG TABLET PO SCH (22:08)
[2021-11-17] MEDS: FAMOTIDINE 20MG TABLET PO SCH (22:10)
[2021-11-17] MEDS: ONDANSETRON HCL 4MG/2ML INJ IV PRN (22:14)
[2021-11-17] MEDS: MORPHINE SULFATE 2 MG/ML CPJ (NOT FOR IM USE) IV PRN (22:15)
[2021-11-18] MEDS: IPRATROPIUM/ALBUTEROL 0.5-3(2.5)MG/3ML NEB HHN SCH ×5 (02:18→21:08)
[2021-11-18 04:00] VITALS: BP 154/67
[2021-11-18] MEDS: GABAPENTIN 100MG CAPSULE PO SCH ×3 (06:40→21:24)
[2021-11-18] MEDS: DIPHENHYDRAMINE 50MG/ML VIAL IV PRN ×3 (06:40→20:28)
[2021-11-18] MEDS: MORPHINE SULFATE 2 MG/ML CPJ (NOT FOR IM USE) IV PRN ×3 (06:41→21:26)
[2021-11-18] MEDS: NYSTATIN POWDER 15GM TOP SCH ×3 (06:41→21:24)
[2021-11-18] MEDS: INSULIN LISPRO 100 UNITS/ML SUBCUT SCH ×4 (06:42→21:25)
[2021-11-18] MEDS: BLOOD SUGAR DIAGNOSTIC STRIP TEST SCH ×4 (06:42→20:34)
[2021-11-18 08:00] VITALS: BP 179/95
[2021-11-18] MEDS: LOSARTAN POTASSIUM 100 MG TABLET PO SCH (09:14)
[2021-11-18] MEDS: GUAIFENESIN 600MG ER TABLET PO SCH ×2 (09:14→20:26)
[2021-11-18] MEDS: AMLODIPINE 10MG TABLET PO SCH (09:14)
[2021-11-18] MEDS: METOPROLOL TARTRATE 100MG TABLET PO SCH ×2 (09:14→20:28)
[2021-11-18] MEDS: METHYLPREDNISOLONE SOD SUCC 40 MG/ML VIAL IV SCH (09:14)
[2021-11-18] MEDS: ONDANSETRON HCL 4MG/2ML INJ IV PRN ×3 (09:42→21:32)
[2021-11-18] MEDS: VENLAFAXINE HCL 37.5MG SR CAPSULE 24HR PO SCH ×2 (09:42→21:24)
[2021-11-18] MEDS: HYDROCODONE/ACETAMINOPHEN 5/325MG TABLET PO PRN ×2 (09:43→18:38)
[2021-11-18] MEDS: INSULIN GLARGINE 100 UNITS/ML SUBCUT SCH ×2 (09:44→21:26)
[2021-11-18 12:00] VITALS: BP 161/76
[2021-11-18] MEDS: HYDRALAZINE 20MG/ML VIAL IV PRN (12:02)
[2021-11-18] MEDS: CLONIDINE 0.2MG TABLET PO SCH ×2 (14:06→21:24)
[2021-11-18 16:00] VITALS: BP 139/58
[2021-11-18 20:00] VITALS: BP 155/65
[2021-11-18] MEDS: FAMOTIDINE 20MG TABLET PO SCH (20:26)
[2021-11-18] MEDS: TRAZODONE HCL 50MG TABLET PO SCH (20:28)
[2021-11-18 23:58] VITALS: BP 143/60
[2021-11-19] MEDS: IPRATROPIUM/ALBUTEROL 0.5-3(2.5)MG/3ML NEB HHN SCH ×3 (00:49→20:57)
[2021-11-19 04:00] VITALS: BP 139/62
[2021-11-19] MEDS: NYSTATIN POWDER 15GM TOP SCH ×3 (06:13→22:36)
[2021-11-19] MEDS: GABAPENTIN 100MG CAPSULE PO SCH ×3 (06:13→22:26)
[2021-11-19] MEDS: CLONIDINE 0.2MG TABLET PO SCH ×3 (06:13→22:27)
[2021-11-19] MEDS: BLOOD SUGAR DIAGNOSTIC STRIP TEST SCH ×4 (07:37→21:00)
[2021-11-19] MEDS: ONDANSETRON HCL 4MG/2ML INJ IV PRN ×2 (07:58→08:00)
[2021-11-19] MEDS: MORPHINE SULFATE 2 MG/ML CPJ (NOT FOR IM USE) IV PRN ×2 (07:58→22:27)
[2021-11-19] MEDS: METHYLPREDNISOLONE SOD SUCC 40 MG/ML VIAL IV SCH (07:58)
[2021-11-19] MEDS: GUAIFENESIN 600MG ER TABLET PO SCH ×2 (07:58→22:26)
[2021-11-19] MEDS: AMLODIPINE 10MG TABLET PO SCH (07:58)
[2021-11-19] MEDS: METOPROLOL TARTRATE 100MG TABLET PO SCH ×2 (07:59→22:31)
[2021-11-19] MEDS: LOSARTAN POTASSIUM 100 MG TABLET PO SCH (07:59)
[2021-11-19 08:00] VITALS: BP 150/63
[2021-11-19] MEDS: VENLAFAXINE HCL 37.5MG SR CAPSULE 24HR PO SCH ×2 (08:01→22:27)
[2021-11-19] MEDS: DIPHENHYDRAMINE 50MG/ML VIAL IV PRN ×2 (09:02→20:04)
[2021-11-19] MEDS: INSULIN LISPRO 100 UNITS/ML SUBCUT SCH ×4 (09:07→21:00)
[2021-11-19] MEDS: INSULIN GLARGINE 100 UNITS/ML SUBCUT SCH ×2 (10:00→22:34)
[2021-11-19 12:00] VITALS: BP 140/65
[2021-11-19 16:55] VITALS: BP 152/69
[2021-11-19] MEDS: ACETAMINOPHEN 325MG TABLET PO PRN (20:04)
[2021-11-19 20:30] VITALS: BP_SYST 134; BP_SYST 163; BP_DIAS 76; BP_DIAS 90
[2021-11-19] MEDS: FAMOTIDINE 20MG TABLET PO SCH (22:26)
[2021-11-19] MEDS: TRAZODONE HCL 50MG TABLET PO SCH (22:31)
[2021-11-20 00:25] LABS: HEMATOCRIT 38.7 % (36.0-48.0); HEMOGLOBIN 12.1 g/dL (12.0-16.0); MEAN CORPUSCULAR HEMOGLOBIN 25.8 pg (28.0-32.0); MEAN CORPUSCULAR VOLUME 82.6 fL (81.0-99.0); PLATELET 329 x1000/uL (130-400); RED BLOOD CELL COUNT 4.69 mill/uL (4.2-5.4); RED CELL DISTRIBUTION WIDTH 18.8 % (11.6-14.6)
[2021-11-20 00:30] VITALS: BP 168/79
[2021-11-20 01:06] LABS: HEPATITIS B SURFACE ANTIGEN NEGATIVE
[2021-11-20] MEDS: IPRATROPIUM/ALBUTEROL 0.5-3(2.5)MG/3ML NEB HHN SCH ×4 (02:01→22:45)
[2021-11-20 04:00] VITALS: BP 167/75
[2021-11-20] MEDS: MORPHINE SULFATE 2 MG/ML CPJ (NOT FOR IM USE) IV PRN ×4 (05:34→21:19)
[2021-11-20] MEDS: DIPHENHYDRAMINE 50MG/ML VIAL IV PRN ×5 (05:34→22:07)
[2021-11-20] MEDS: ONDANSETRON HCL 4MG/2ML INJ IV PRN ×3 (05:36→22:07)
[2021-11-20] MEDS: CLONIDINE 0.2MG TABLET PO SCH ×3 (05:38→21:20)
[2021-11-20] MEDS: GABAPENTIN 100MG CAPSULE PO SCH ×3 (05:39→21:23)
[2021-11-20] MEDS: BLOOD SUGAR DIAGNOSTIC STRIP TEST SCH ×4 (06:00→20:20)
[2021-11-20] MEDS: NYSTATIN POWDER 15GM TOP SCH ×3 (06:00→21:20)
[2021-11-20] MEDS: INSULIN LISPRO 100 UNITS/ML SUBCUT SCH ×4 (06:01→20:21)
[2021-11-20 08:00] VITALS: BP 161/80
[2021-11-20] MEDS: LOSARTAN POTASSIUM 100 MG TABLET PO SCH (09:00)
[2021-11-20] MEDS: AMLODIPINE 10MG TABLET PO SCH (09:00)
[2021-11-20] MEDS: METOPROLOL TARTRATE 100MG TABLET PO SCH ×2 (09:00→21:20)
[2021-11-20] MEDS: VENLAFAXINE HCL 37.5MG SR CAPSULE 24HR PO SCH ×2 (09:07→21:20)
[2021-11-20] MEDS: GUAIFENESIN 600MG ER TABLET PO SCH ×2 (09:07→21:19)
[2021-11-20] MEDS: INSULIN GLARGINE 100 UNITS/ML SUBCUT SCH ×2 (09:19→21:24)
[2021-11-20 12:00] VITALS: BP 143/84
[2021-11-20 16:00] VITALS: BP 190/90
[2021-11-20] MEDS: HYDRALAZINE 20MG/ML VIAL IV PRN (16:05)
[2021-11-20 19:59] VITALS: BP 163/74
[2021-11-20] MEDS: FAMOTIDINE 20MG TABLET PO SCH (21:20)
[2021-11-20] MEDS: TRAZODONE HCL 50MG TABLET PO SCH (21:23)
[2021-11-21 00:12] VITALS: BP 170/80
[2021-11-21] MEDS: HYDRALAZINE 20MG/ML VIAL IV PRN (00:14)
[2021-11-21] MEDS: IPRATROPIUM/ALBUTEROL 0.5-3(2.5)MG/3ML NEB HHN SCH ×5 (01:47→21:45)
[2021-11-21 04:14] VITALS: BP 157/75
[2021-11-21] MEDS: MORPHINE SULFATE 2 MG/ML CPJ (NOT FOR IM USE) IV PRN ×3 (05:03→22:40)
[2021-11-21] MEDS: CLONIDINE 0.2MG TABLET PO SCH ×3 (05:03→23:12)
[2021-11-21] MEDS: GABAPENTIN 100MG CAPSULE PO SCH ×3 (05:05→23:13)
[2021-11-21] MEDS: NYSTATIN POWDER 15GM TOP SCH ×2 (05:06→13:26)
[2021-11-21] MEDS: DIPHENHYDRAMINE 50MG/ML VIAL IV PRN ×3 (05:57→18:17)
[2021-11-21] MEDS: INSULIN LISPRO 100 UNITS/ML SUBCUT SCH ×4 (06:06→21:00)
[2021-11-21] MEDS: BLOOD SUGAR DIAGNOSTIC STRIP TEST SCH ×4 (06:06→20:31)
[2021-11-21 08:00] VITALS: BP 165/79
[2021-11-21] MEDS: VENLAFAXINE HCL 37.5MG SR CAPSULE 24HR PO SCH ×2 (09:40→22:35)
[2021-11-21] MEDS: LOSARTAN POTASSIUM 100 MG TABLET PO SCH (09:40)
[2021-11-21] MEDS: METOPROLOL TARTRATE 100MG TABLET PO SCH ×2 (09:41→22:37)
[2021-11-21] MEDS: GUAIFENESIN 600MG ER TABLET PO SCH ×2 (09:41→22:36)
[2021-11-21] MEDS: AMLODIPINE 10MG TABLET PO SCH (09:42)
[2021-11-21] MEDS: INSULIN GLARGINE 100 UNITS/ML SUBCUT SCH (09:46)
[2021-11-21] MEDS: FOLIC ACID/VITAMIN B COMP W-C TABLET PO SCH (11:30)
[2021-11-21 12:00] VITALS: BP 114/65
[2021-11-21] MEDS: ACETAMINOPHEN 325MG TABLET PO PRN (18:17)
[2021-11-21 20:00] VITALS: BP 120/77
[2021-11-21] MEDS: FAMOTIDINE 20MG TABLET PO SCH (20:57)
[2021-11-21] MEDS: TRAZODONE HCL 50MG TABLET PO SCH (20:57)
[2021-11-22] VITALS: BP 158/73
[2021-11-22] MEDS: INSULIN GLARGINE 100 UNITS/ML SUBCUT SCH ×3 (00:57→21:20)
[2021-11-22] MEDS: IPRATROPIUM/ALBUTEROL 0.5-3(2.5)MG/3ML NEB HHN SCH ×3 (02:10→13:50)
[2021-11-22] MEDS: NYSTATIN POWDER 15GM TOP SCH ×4 (02:21→21:40)
[2021-11-22] MEDS: GABAPENTIN 100MG CAPSULE PO SCH ×3 (07:08→21:40)
[2021-11-22] MEDS: CLONIDINE 0.2MG TABLET PO SCH ×3 (07:09→21:38)
[2021-11-22] MEDS: DIPHENHYDRAMINE 50MG/ML VIAL IV PRN ×3 (07:31→20:29)
[2021-11-22] MEDS: ONDANSETRON HCL 4MG/2ML INJ IV PRN ×3 (07:44→20:29)
[2021-11-22] MEDS: INSULIN LISPRO 100 UNITS/ML SUBCUT SCH ×4 (07:50→21:00)
[2021-11-22] MEDS: BLOOD SUGAR DIAGNOSTIC STRIP TEST SCH ×4 (07:55→21:18)
[2021-11-22 08:00] VITALS: BP 172/78
[2021-11-22] MEDS: VENLAFAXINE HCL 37.5MG SR CAPSULE 24HR PO SCH ×2 (09:00→20:29)
[2021-11-22] MEDS: AMLODIPINE 10MG TABLET PO SCH (09:03)
[2021-11-22] MEDS: MORPHINE SULFATE 2 MG/ML CPJ (NOT FOR IM USE) IV PRN ×2 (09:05→17:43)
[2021-11-22] MEDS: FOLIC ACID/VITAMIN B COMP W-C TABLET PO SCH (10:28)
[2021-11-22] MEDS: LOSARTAN POTASSIUM 100 MG TABLET PO SCH (10:31)
[2021-11-22] MEDS: GUAIFENESIN 600MG ER TABLET PO SCH ×2 (10:33→20:29)
[2021-11-22] MEDS: METOPROLOL TARTRATE 100MG TABLET PO SCH ×2 (10:33→20:30)
[2021-11-22] MEDS ORDERED: MORPHINE SULFATE 2 MG/ML CPJ (NOT FOR IM USE) IV PRN (11:45)
[2021-11-22 12:00] VITALS: BP 181/84
[2021-11-22] MEDS ORDERED: LINEZOLID 600 MG PREMIX 300 ML IV SCH (14:45)
[2021-11-22 16:00] VITALS: BP 189/84
[2021-11-22] MEDS ORDERED: DAPTOMYCIN IV SCH (18:00)
[2021-11-22] MEDS ORDERED: SODIUM CHLORIDE 0.9% IV SCH (18:00)
[2021-11-22 20:00] VITALS: BP 119/59
[2021-11-22] MEDS: FAMOTIDINE 20MG TABLET PO SCH (20:29)
[2021-11-22] MEDS: TRAZODONE HCL 50MG TABLET PO SCH (20:29)
[2021-11-23] VITALS: BP 175/85
[2021-11-23] MEDS: CLONIDINE 0.1MG TABLET PO PRN (00:08)
[2021-11-23] MEDS: IPRATROPIUM/ALBUTEROL 0.5-3(2.5)MG/3ML NEB HHN SCH ×4 (01:40→21:10)
[2021-11-23 04:00] VITALS: BP 112/64
[2021-11-23] MEDS: ONDANSETRON HCL 4MG/2ML INJ IV PRN ×2 (04:17→17:46)
[2021-11-23] MEDS: DIPHENHYDRAMINE 50MG/ML VIAL IV PRN ×2 (04:20→17:45)
[2021-11-23] MEDS: GABAPENTIN 100MG CAPSULE PO SCH ×3 (06:11→21:14)
[2021-11-23] MEDS: CLONIDINE 0.2MG TABLET PO SCH ×3 (06:11→21:15)
[2021-11-23] MEDS: NYSTATIN POWDER 15GM TOP SCH ×3 (06:11→21:17)
[2021-11-23] MEDS: INSULIN LISPRO 100 UNITS/ML SUBCUT SCH ×4 (06:34→21:00)
[2021-11-23] MEDS: BLOOD SUGAR DIAGNOSTIC STRIP TEST SCH ×4 (06:34→21:12)
[2021-11-23 07:05] LABS: BASOPHILS % 0.8 % (0.0-2.0); EOSINOPHILS % 1.3 % (0.0-5.0); HEMATOCRIT. 35.6 % (36.0-48.0); MEAN CORPUSCULAR VOLUME 80.7 fL (81.0-99.0); MEAN PLATELET VOLUME 8.6 fl (7.4-10.4); MONOCYTES % 11.9 % (2.0-8.0); PLATELET 222 x1000/uL (130-400); RED BLOOD CELL COUNT 4.41 mill/uL (4.2-5.4)
[2021-11-23 08:00] VITALS: BP 165/77
[2021-11-23] MEDS: FOLIC ACID/VITAMIN B COMP W-C TABLET PO SCH (08:23)
[2021-11-23] MEDS: GUAIFENESIN 600MG ER TABLET PO SCH ×2 (08:23→21:14)
[2021-11-23] MEDS: AMLODIPINE 10MG TABLET PO SCH (08:23)
[2021-11-23] MEDS: LOSARTAN POTASSIUM 100 MG TABLET PO SCH (08:23)
[2021-11-23] MEDS: VENLAFAXINE HCL 37.5MG SR CAPSULE 24HR PO SCH ×2 (08:24→21:14)
[2021-11-23] MEDS: METOPROLOL TARTRATE 100MG TABLET PO SCH ×2 (08:24→21:16)
[2021-11-23] MEDS ORDERED: LIDOCAINE HCL 1% 20ML VIAL (Pyxis) INJ ONE (08:29)
[2021-11-23] MEDS ORDERED: LIDOCAINE HCL 1% 10 MG/ML 10ML VIAL ONE (09:45)
[2021-11-23] MEDS: INSULIN GLARGINE 100 UNITS/ML SUBCUT SCH ×2 (10:00→21:13)
[2021-11-23 12:00] VITALS: BP 175/85
[2021-11-23] MEDS: HYDROCODONE/ACETAMINOPHEN 5/325MG TABLET PO PRN ×2 (12:35→21:16)
[2021-11-23] MEDS ORDERED: HYDRALAZINE 10 MG in SODIUM CHLORIDE 0.9% 49.5 ML IV PRN (15:30)
[2021-11-23 16:00] VITALS: BP 174/78
[2021-11-23] MEDS ORDERED: NALOXONE HCL 0.4MG/ML VIAL IV PRN (18:00)
[2021-11-23 20:00] VITALS: BP 116/63
[2021-11-23] MEDS: TRAZODONE HCL 50MG TABLET PO SCH (21:14)
[2021-11-23] MEDS: FAMOTIDINE 20MG TABLET PO SCH (21:14)
[2021-11-24] VITALS: BP 164/75
[2021-11-24] MEDS: IPRATROPIUM/ALBUTEROL 0.5-3(2.5)MG/3ML NEB HHN SCH ×4 (02:40→18:00)
[2021-11-24 04:00] VITALS: BP 172/86
[2021-11-24] MEDS: CLONIDINE 0.2MG TABLET PO SCH ×3 (06:08→21:51)
[2021-11-24] MEDS: NYSTATIN POWDER 15GM TOP SCH ×3 (06:08→21:58)
[2021-11-24] MEDS: ONDANSETRON HCL 4MG/2ML INJ IV PRN (06:09)
[2021-11-24] MEDS: GABAPENTIN 100MG CAPSULE PO SCH ×3 (06:09→21:53)
[2021-11-24] MEDS: HYDROCODONE/ACETAMINOPHEN 5/325MG TABLET PO PRN (06:09)
[2021-11-24] MEDS: BLOOD SUGAR DIAGNOSTIC STRIP TEST SCH ×4 (06:53→21:51)
[2021-11-24 07:44] LABS: BASOPHILS % 0.7 % (0.0-2.0); EOSINOPHILS % 0.8 % (0.0-5.0); HEMATOCRIT. 34.1 % (36.0-48.0); HEMOGLOBIN. 10.7 g/dL (12.0-16.0); LYMPHOCYTES % 14.7 % (20.0-50.0); MEAN CORPUSCULAR HEMOGLOBIN 25.6 pg (28.0-32.0); MEAN CORPUSCULAR VOLUME 81.5 fL (81.0-99.0); MEAN PLATELET VOLUME 9.3 fl (7.4-10.4); MONOCYTES % 13.2 % (2.0-8.0); NEUTROPHILS % 70.6 % (40.0-76.0); PLATELET 200 x1000/uL (130-400); RED BLOOD CELL COUNT 4.19 mill/uL (4.2-5.4); RED CELL DISTRIBUTION WIDTH 18.9 % (11.6-14.6)
[2021-11-24 08:00] VITALS: BP 165/82
[2021-11-24] MEDS: VENLAFAXINE HCL 37.5MG SR CAPSULE 24HR PO SCH ×2 (09:15→21:51)
[2021-11-24] MEDS: GUAIFENESIN 600MG ER TABLET PO SCH ×2 (09:15→21:51)
[2021-11-24] MEDS: FOLIC ACID/VITAMIN B COMP W-C TABLET PO SCH (09:15)
[2021-11-24] MEDS: LOSARTAN POTASSIUM 100 MG TABLET PO SCH (09:16)
[2021-11-24] MEDS: AMLODIPINE 10MG TABLET PO SCH (09:16)
[2021-11-24] MEDS: METOPROLOL TARTRATE 100MG TABLET PO SCH ×2 (09:16→21:53)
[2021-11-24] MEDS: DAPTOMYCIN 700 MG in SODIUM CHLORIDE 0.9% 50 ML IV SCH (09:26)
[2021-11-24] MEDS: INSULIN LISPRO 100 UNITS/ML SUBCUT SCH ×4 (09:31→21:00)
[2021-11-24] MEDS: HYDRALAZINE HCL 50MG TABLET PO SCH ×2 (09:35→18:45)
[2021-11-24] MEDS: INSULIN GLARGINE 100 UNITS/ML SUBCUT SCH ×2 (10:00→21:55)
[2021-11-24 12:00] VITALS: BP 161/80
[2021-11-24] MEDS: DIPHENHYDRAMINE 50MG/ML VIAL IV PRN (14:32)
[2021-11-24 15:35] LABS: HEPATITIS B SURFACE ANTIGEN NEGATIVE
[2021-11-24 15:55] VITALS: BP 119/79
[2021-11-24] MEDS ORDERED: HEPARIN SODIUM 1,000 UNIT/1ML VIAL IV NR (16:15)
[2021-11-24 20:00] VITALS: BP 172/72
[2021-11-24] MEDS: TRAZODONE HCL 50MG TABLET PO SCH (21:54)
[2021-11-24] MEDS: FAMOTIDINE 20MG TABLET PO SCH (21:58)
[2021-11-25] VITALS: BP 126/74
[2021-11-25 04:00] VITALS: BP 139/80
[2021-11-25] MEDS: CLONIDINE 0.2MG TABLET PO SCH ×3 (05:49→22:00)
[2021-11-25] MEDS: DIPHENHYDRAMINE 50MG/ML VIAL IV PRN ×3 (05:49→14:46)
[2021-11-25] MEDS: ONDANSETRON HCL 4MG/2ML INJ IV PRN ×2 (05:49→10:41)
[2021-11-25] MEDS: GABAPENTIN 100MG CAPSULE PO SCH ×3 (05:49→22:36)
[2021-11-25] MEDS: BLOOD SUGAR DIAGNOSTIC STRIP TEST SCH ×4 (06:46→22:30)
[2021-11-25] MEDS: IPRATROPIUM/ALBUTEROL 0.5-3(2.5)MG/3ML NEB HHN SCH ×4 (07:32→20:50)
[2021-11-25 08:00] VITALS: BP 181/77
[2021-11-25] MEDS: INSULIN LISPRO 100 UNITS/ML SUBCUT SCH ×4 (09:29→22:30)
[2021-11-25] MEDS: FOLIC ACID/VITAMIN B COMP W-C TABLET PO SCH (09:30)
[2021-11-25] MEDS: GUAIFENESIN 600MG ER TABLET PO SCH ×2 (09:30→22:37)
[2021-11-25] MEDS: VENLAFAXINE HCL 37.5MG SR CAPSULE 24HR PO SCH ×2 (09:30→22:36)
[2021-11-25] MEDS: HYDRALAZINE HCL 50MG TABLET PO SCH ×2 (09:38→17:44)
[2021-11-25] MEDS: AMLODIPINE 10MG TABLET PO SCH (09:38)
[2021-11-25] MEDS: LOSARTAN POTASSIUM 100 MG TABLET PO SCH (09:38)
[2021-11-25] MEDS: METOPROLOL TARTRATE 100MG TABLET PO SCH ×2 (09:38→22:38)
[2021-11-25 09:45] LABS: BASOPHILS % 1.1 % (0.0-2.0); EOSINOPHILS % 0.6 % (0.0-5.0); HEMOGLOBIN. 11.4 g/dL (12.0-16.0); LYMPHOCYTES % 10.5 % (20.0-50.0); MEAN CORPUSCULAR HEMOGLOBIN 25.2 pg (28.0-32.0); MEAN CORPUSCULAR VOLUME 81.8 fL (81.0-99.0); MEAN PLATELET VOLUME 8.5 fl (7.4-10.4); MONOCYTES % 11.9 % (2.0-8.0); NEUTROPHILS % 75.9 % (40.0-76.0); PLATELET 184 x1000/uL (130-400); RED BLOOD CELL COUNT 4.53 mill/uL (4.2-5.4); RED CELL DISTRIBUTION WIDTH 19.1 % (11.6-14.6)
[2021-11-25] MEDS: INSULIN GLARGINE 100 UNITS/ML SUBCUT SCH ×2 (10:41→22:00)
[2021-11-25 12:00] VITALS: BP 154/66
[2021-11-25 16:00] VITALS: BP 113/71
[2021-11-25 20:00] VITALS: BP 162/71
[2021-11-25] MEDS: TRAZODONE HCL 50MG TABLET PO SCH (22:37)
[2021-11-25] MEDS: CLONIDINE 0.1MG TABLET PO PRN (22:37)
[2021-11-25] MEDS: FAMOTIDINE 20MG TABLET PO SCH (22:38)
[2021-11-26] VITALS (7 sets, daily range): BP systolic 111–173; BP diastolic 67–85
[2021-11-26] MEDS: CLONIDINE 0.1MG TABLET PO PRN ×2 (00:50→00:58)
[2021-11-26] MEDS ORDERED: ENOXAPARIN 80MG/0.8ML SYR SUBCUT SCH (02:00)
[2021-11-26] MEDS: IPRATROPIUM/ALBUTEROL 0.5-3(2.5)MG/3ML NEB HHN SCH ×4 (02:30→19:54)
[2021-11-26] MEDS: GABAPENTIN 100MG CAPSULE PO SCH ×3 (06:26→21:23)
[2021-11-26] MEDS: CLONIDINE 0.2MG TABLET PO SCH ×3 (06:27→21:24)
[2021-11-26] MEDS: BLOOD SUGAR DIAGNOSTIC STRIP TEST SCH ×4 (06:46→21:24)
[2021-11-26] MEDS: GUAIFENESIN 600MG ER TABLET PO SCH ×2 (08:52→21:24)
[2021-11-26] MEDS: DAPTOMYCIN 700 MG in SODIUM CHLORIDE 0.9% 50 ML IV SCH (08:52)
[2021-11-26] MEDS: VENLAFAXINE HCL 37.5MG SR CAPSULE 24HR PO SCH ×2 (08:53→21:24)
[2021-11-26] MEDS: HYDRALAZINE HCL 50MG TABLET PO SCH (08:53)
[2021-11-26] MEDS: METOPROLOL TARTRATE 100MG TABLET PO SCH ×3 (08:53→21:16)
[2021-11-26] MEDS: FOLIC ACID/VITAMIN B COMP W-C TABLET PO SCH (08:53)
[2021-11-26] MEDS: LOSARTAN POTASSIUM 100 MG TABLET PO SCH (08:53)
[2021-11-26] MEDS: AMLODIPINE 10MG TABLET PO SCH (08:53)
[2021-11-26] MEDS ORDERED: ENOXAPARIN 40MG/0.4ML SYR SUBCUT SCH (09:00)
[2021-11-26] MEDS: INSULIN LISPRO 100 UNITS/ML SUBCUT SCH ×4 (09:05→21:00)
[2021-11-26] MEDS: INSULIN GLARGINE 100 UNITS/ML SUBCUT SCH (10:00)
[2021-11-26] MEDS: DIPHENHYDRAMINE 50MG/ML VIAL IV PRN ×2 (14:11→21:22)
[2021-11-26] MEDS: ONDANSETRON HCL 4MG/2ML INJ IV PRN ×2 (14:11→21:22)
[2021-11-26] MEDS: HYDRALAZINE HCL 100MG TABLET PO SCH (17:31)
[2021-11-26] MEDS: HYDROCODONE/ACETAMINOPHEN 5/325MG TABLET PO PRN ×2 (17:32→22:38)
[2021-11-26 18:09] LABS: INR 1.1
[2021-11-26] MEDS: FAMOTIDINE 20MG TABLET PO SCH (21:23)
[2021-11-26] MEDS: ENOXAPARIN 80MG/0.8ML SYR SUBCUT SCH (21:23)
[2021-11-26] MEDS: TRAZODONE HCL 50MG TABLET PO SCH (21:24)
[2021-11-27] VITALS: BP 157/71
[2021-11-27] MEDS: IPRATROPIUM/ALBUTEROL 0.5-3(2.5)MG/3ML NEB HHN SCH ×4 (01:22→18:00)
[2021-11-27 04:00] VITALS: BP 154/70
[2021-11-27] MEDS: BLOOD SUGAR DIAGNOSTIC STRIP TEST SCH ×4 (06:43→21:52)
[2021-11-27] MEDS: CLONIDINE 0.2MG TABLET PO SCH ×3 (06:43→20:39)
[2021-11-27] MEDS: METOPROLOL TARTRATE 100MG TABLET PO SCH ×3 (06:43→20:39)
[2021-11-27] MEDS: GABAPENTIN 100MG CAPSULE PO SCH ×3 (06:43→20:39)
[2021-11-27] MEDS: DIPHENHYDRAMINE 50MG/ML VIAL IV PRN (06:44)
[2021-11-27] MEDS: ONDANSETRON HCL 4MG/2ML INJ IV PRN ×2 (06:44→20:50)
[2021-11-27 07:19] LABS: BASOPHILS % 1.2 % (0.0-2.0); EOSINOPHILS % 1.1 % (0.0-5.0); HEMOGLOBIN. 10.9 g/dL (12.0-16.0); LYMPHOCYTES % 10.5 % (20.0-50.0); MEAN CORPUSCULAR VOLUME 80.2 fL (81.0-99.0); MEAN PLATELET VOLUME 9.2 fl (7.4-10.4); MONOCYTES % 12.6 % (2.0-8.0); NEUTROPHILS % 74.6 % (40.0-76.0); PLATELET 189 x1000/uL (130-400); RED BLOOD CELL COUNT 4.37 mill/uL (4.2-5.4); RED CELL DISTRIBUTION WIDTH 18.9 % (11.6-14.6)
[2021-11-27 08:00] VITALS: BP 158/66
[2021-11-27] MEDS: VENLAFAXINE HCL 37.5MG SR CAPSULE 24HR PO SCH ×2 (08:16→20:38)
[2021-11-27] MEDS: HYDRALAZINE HCL 100MG TABLET PO SCH ×2 (08:17→18:19)
[2021-11-27] MEDS: LOSARTAN POTASSIUM 100 MG TABLET PO SCH (08:18)
[2021-11-27] MEDS: FOLIC ACID/VITAMIN B COMP W-C TABLET PO SCH (08:18)
[2021-11-27] MEDS: INSULIN LISPRO 100 UNITS/ML SUBCUT SCH ×4 (08:26→21:00)
[2021-11-27] MEDS: AMLODIPINE 10MG TABLET PO SCH (08:27)
[2021-11-27] MEDS: GUAIFENESIN 600MG ER TABLET PO SCH ×2 (08:49→20:38)
[2021-11-27] MEDS ORDERED: INSULIN GLARGINE 100 UNITS/ML SUBCUT SCH (10:00)
[2021-11-27] MEDS: MORPHINE SULFATE 2 MG/ML CPJ (NOT FOR IM USE) IV PRN ×2 (11:49→18:21)
[2021-11-27 12:26] VITALS: BP 167/77
[2021-11-27] MEDS: CLONIDINE 0.1MG TABLET PO PRN ×2 (13:29→13:32)
[2021-11-27 16:00] VITALS: BP 176/85
[2021-11-27 20:00] VITALS: BP 177/82
[2021-11-27] MEDS: FAMOTIDINE 20MG TABLET PO SCH (20:38)
[2021-11-27] MEDS: ENOXAPARIN 80MG/0.8ML SYR SUBCUT SCH (20:38)
[2021-11-27] MEDS: TRAZODONE HCL 50MG TABLET PO SCH (20:38)
[2021-11-28] VITALS: BP 117/97
[2021-11-28] MEDS: IPRATROPIUM/ALBUTEROL 0.5-3(2.5)MG/3ML NEB HHN SCH ×4 (02:08→20:24)
[2021-11-28 04:00] VITALS: BP 118/90
[2021-11-28] MEDS: CLONIDINE 0.2MG TABLET PO SCH ×3 (06:11→22:25)
[2021-11-28] MEDS: METOPROLOL TARTRATE 100MG TABLET PO SCH ×3 (06:12→22:00)
[2021-11-28] MEDS: GABAPENTIN 100MG CAPSULE PO SCH ×3 (06:12→22:26)
[2021-11-28] MEDS: DEXTROSE 50% WATER 50ML SYRINGE IV PRN (06:22)
[2021-11-28] MEDS: BLOOD SUGAR DIAGNOSTIC STRIP TEST SCH ×4 (06:30→21:00)
[2021-11-28] MEDS: DIPHENHYDRAMINE 50MG/ML VIAL IV PRN ×2 (06:51→16:04)
[2021-11-28] MEDS: ONDANSETRON HCL 4MG/2ML INJ IV PRN ×2 (06:51→16:04)
[2021-11-28] MEDS: INSULIN LISPRO 100 UNITS/ML SUBCUT SCH ×4 (07:50→22:31)
[2021-11-28 08:00] VITALS: BP 169/77
[2021-11-28] MEDS: ACETYLCYSTEINE 100MG/ML 10% VIAL 4ML INH SCH ×2 (08:11→20:24)
[2021-11-28] MEDS: FOLIC ACID/VITAMIN B COMP W-C TABLET PO SCH (09:13)
[2021-11-28] MEDS: GUAIFENESIN 600MG ER TABLET PO SCH ×2 (09:13→22:23)
[2021-11-28] MEDS: AMLODIPINE 10MG TABLET PO SCH (09:14)
[2021-11-28] MEDS: LOSARTAN POTASSIUM 100 MG TABLET PO SCH (09:14)
[2021-11-28] MEDS: VENLAFAXINE HCL 37.5MG SR CAPSULE 24HR PO SCH ×2 (09:15→22:23)
[2021-11-28] MEDS: HYDRALAZINE HCL 100MG TABLET PO SCH ×2 (09:15→16:04)
[2021-11-28] MEDS ORDERED: DEXT 5%/0.45% NACL 1000ML 1,000 ML IV SCH (11:00)
[2021-11-28 12:00] VITALS: BP 167/71
[2021-11-28 13:19] LABS: BASOPHILS % 1.2 % (0.0-2.0); EOSINOPHILS % 0.8 % (0.0-5.0); HEMATOCRIT. 37.1 % (36.0-48.0); HEMOGLOBIN. 11.3 g/dL (12.0-16.0); MEAN CORPUSCULAR VOLUME 82.2 fL (81.0-99.0); MEAN PLATELET VOLUME 8.5 fl (7.4-10.4); MONOCYTES % 7.6 % (2.0-8.0); NEUTROPHILS % 78.4 % (40.0-76.0); PLATELET 189 x1000/uL (130-400); RED BLOOD CELL COUNT 4.51 mill/uL (4.2-5.4)
[2021-11-28] MEDS ORDERED: IOHEXOL-350 100 ML BOTTLE ONE (13:21)
[2021-11-28] MEDS: DAPTOMYCIN 700 MG in SODIUM CHLORIDE 0.9% 50 ML IV SCH (14:25)
[2021-11-28 14:43] LABS: HEPATITIS B SURFACE ANTIGEN NEGATIVE
[2021-11-28] MEDS ORDERED: HYDRALAZINE 20MG/ML VIAL IV PRN (15:30)
[2021-11-28 16:00] VITALS: BP 164/75
[2021-11-28] MEDS: ACETAMINOPHEN 325MG TABLET PO PRN (16:03)
[2021-11-28 20:00] VITALS: BP 159/73
[2021-11-28] MEDS: TRAZODONE HCL 50MG TABLET PO SCH (22:23)
[2021-11-28] MEDS: FAMOTIDINE 20MG TABLET PO SCH (22:23)
[2021-11-29 00:01] VITALS: BP 142/75
[2021-11-29] MEDS: IPRATROPIUM/ALBUTEROL 0.5-3(2.5)MG/3ML NEB HHN SCH ×4 (01:14→14:20)
[2021-11-29 04:00] VITALS: BP 149/68
[2021-11-29] MEDS: CLONIDINE 0.2MG TABLET PO SCH ×2 (06:48→15:38)
[2021-11-29] MEDS: GABAPENTIN 100MG CAPSULE PO SCH ×3 (06:49→20:29)
[2021-11-29] MEDS: METOPROLOL TARTRATE 100MG TABLET PO SCH ×3 (06:49→20:29)
[2021-11-29] MEDS: BLOOD SUGAR DIAGNOSTIC STRIP TEST SCH ×3 (07:10→17:10)
[2021-11-29 08:00] VITALS: BP 166/79
[2021-11-29] MEDS: ACETYLCYSTEINE 100MG/ML 10% VIAL 4ML INH SCH (08:14)
[2021-11-29] MEDS: GUAIFENESIN 600MG ER TABLET PO SCH ×2 (10:10→20:29)
[2021-11-29] MEDS: VENLAFAXINE HCL 37.5MG SR CAPSULE 24HR PO SCH ×2 (10:10→20:30)
[2021-11-29] MEDS: DIPHENHYDRAMINE 50MG/ML VIAL IV PRN ×3 (10:10→21:08)
[2021-11-29] MEDS: HYDRALAZINE HCL 100MG TABLET PO SCH ×2 (10:11→20:11)
[2021-11-29] MEDS: ONDANSETRON HCL 4MG/2ML INJ IV PRN ×2 (10:11→15:40)
[2021-11-29] MEDS: AMLODIPINE 10MG TABLET PO SCH (10:11)
[2021-11-29] MEDS: LOSARTAN POTASSIUM 100 MG TABLET PO SCH (10:11)
[2021-11-29] MEDS: FOLIC ACID/VITAMIN B COMP W-C TABLET PO SCH (10:13)
[2021-11-29] MEDS: INSULIN LISPRO 100 UNITS/ML SUBCUT SCH ×3 (10:22→21:29)
[2021-11-29 12:00] VITALS: BP 135/91
[2021-11-29 16:00] VITALS: BP 157/77
[2021-11-29 20:04] VITALS: BP 166/74
[2021-11-29] MEDS: FAMOTIDINE 20MG TABLET PO SCH (20:28)
[2021-11-29] MEDS: TRAZODONE HCL 50MG TABLET PO SCH (20:30)
[2021-11-29] MEDS: CLONIDINE 0.1MG TABLET PO PRN (20:30)
== END 2021-11-29 21:45 | DRG 194 ==
LOC: ER 17:06 → MICUSO 21:33 → EDBEDREQTM 21:49 → EDBEDREQ 21:49 → 6WST 11-07 09:45 → 6EST 11-21 16:16 → 8WST 11-28 15:20
PROVIDERS: ADMIT Internal Medicine; ATTEND Internal Medicine
PROC: 5A1D70Z Performance of Urinary Filtration, Intermittent, Less than 6 Hours Per Day (ICD-10-PCS; 2021-11-07)
PROC: 5A1D70Z Performance of Urinary Filtration, Intermittent, Less than 6 Hours Per Day (ICD-10-PCS; 2021-11-08)
PROC: 5A1D70Z Performance of Urinary Filtration, Intermittent, Less than 6 Hours Per Day (ICD-10-PCS; 2021-11-10)
PROC: 5A1D70Z Performance of Urinary Filtration, Intermittent, Less than 6 Hours Per Day (ICD-10-PCS; 2021-11-13)
PROC: 02HV33Z Insertion of Infusion Device into Superior Vena Cava, Percutaneous Approach (ICD-10-PCS; 2021-11-14)
PROC: B5181ZA Fluoroscopy of Superior Vena Cava using Low Osmolar Contrast, Guidance (ICD-10-PCS; 2021-11-14)
PROC: 0W993ZZ Drainage of Right Pleural Cavity, Percutaneous Approach (ICD-10-PCS; 2021-11-14)
PROC: 02PYX3Z Removal of Infusion Device from Great Vessel, External Approach (ICD-10-PCS; 2021-11-14)
PROC: 5A1D70Z Performance of Urinary Filtration, Intermittent, Less than 6 Hours Per Day (ICD-10-PCS; 2021-11-15)
PROC: 5A1D70Z Performance of Urinary Filtration, Intermittent, Less than 6 Hours Per Day (ICD-10-PCS; 2021-11-17)
PROC: 5A1D70Z Performance of Urinary Filtration, Intermittent, Less than 6 Hours Per Day (ICD-10-PCS; 2021-11-20)
PROC: 5A1D70Z Performance of Urinary Filtration, Intermittent, Less than 6 Hours Per Day (ICD-10-PCS; 2021-11-22)
PROC: 0JPT3XZ Removal of Tunneled Vascular Access Device from Trunk Subcutaneous Tissue and Fascia, Percutaneous Approach (ICD-10-PCS; 2021-11-23)
PROC: 02HV33Z Insertion of Infusion Device into Superior Vena Cava, Percutaneous Approach (ICD-10-PCS; 2021-11-23)
PROC: B548ZZA Ultrasonography of Superior Vena Cava, Guidance (ICD-10-PCS; 2021-11-23)
PROC: B5181ZA Fluoroscopy of Superior Vena Cava using Low Osmolar Contrast, Guidance (ICD-10-PCS; 2021-11-23)
PROC: 5A1D70Z Performance of Urinary Filtration, Intermittent, Less than 6 Hours Per Day (ICD-10-PCS; 2021-11-24)
PROC: 5A1D70Z Performance of Urinary Filtration, Intermittent, Less than 6 Hours Per Day (ICD-10-PCS; 2021-11-27)
PROC: 5A1D70Z Performance of Urinary Filtration, Intermittent, Less than 6 Hours Per Day (ICD-10-PCS; principal; 2021-11-29)
PROC: 0W9B3ZZ Drainage of Left Pleural Cavity, Percutaneous Approach (ICD-10-PCS; 2021-11-29)
DX: I13.2 Hypertensive heart and chronic kidney disease with heart failure and with stage 5 chronic kidney disease, or end stage renal disease (principal); G93.40 Encephalopathy, unspecified; A41.9 Sepsis, unspecified organism; G82.50 Quadriplegia, unspecified; M50.00 Cervical disc disorder with myelopathy, unspecified cervical region; N18.6 End stage renal disease; T80.211A Bloodstream infection due to central venous catheter, initial encounter; E11.41 Type 2 diabetes mellitus with diabetic mononeuropathy; I27.29 Other secondary pulmonary hypertension; E83.51 Hypocalcemia; E88.09 Other disorders of plasma-protein metabolism, not elsewhere classified; E11.649 Type 2 diabetes mellitus with hypoglycemia without coma; E11.22 Type 2 diabetes mellitus with diabetic chronic kidney disease; D64.9 Anemia, unspecified; I50.33 Acute on chronic diastolic (congestive) heart failure; B19.20 Unspecified viral hepatitis C without hepatic coma; E78.5 Hyperlipidemia, unspecified; F33.1 Major depressive disorder, recurrent, moderate; F41.9 Anxiety disorder, unspecified; G47.00 Insomnia, unspecified; I27.81 Cor pulmonale (chronic); I42.9 Cardiomyopathy, unspecified; M47.896 Other spondylosis, lumbar region; M48.061 Spinal stenosis, lumbar region without neurogenic claudication; L03.119 Cellulitis of unspecified part of limb; Y83.8 Other surgical procedures as the cause of abnormal reaction of the patient, or of later complication, without mention of misadventure at the time of the procedure; E87.1 Hypo-osmolality and hyponatremia; I38 Endocarditis, valve unspecified; Y92.239 Unspecified place in hospital as the place of occurrence of the external cause; I34.0 Nonrheumatic mitral (valve) insufficiency; J91.8 Pleural effusion in other conditions classified elsewhere; R29.6 Repeated falls; Z16.21 Resistance to vancomycin; Z20.822 Contact with and (suspected) exposure to COVID-19; J44.9 Chronic obstructive pulmonary disease, unspecified; Z99.2 Dependence on renal dialysis; Z86.16 Personal history of COVID-19; Z87.891 Personal history of nicotine dependence; Z88.6 Allergy status to analgesic agent; Z88.1 Allergy status to other antibiotic agents; Z88.0 Allergy status to penicillin; Z88.8 Allergy status to other drugs, medicaments and biological substances; Z79.899 Other long term (current) drug therapy; Z91.19 Patient's noncompliance with other medical treatment and regimen; K74.60 Unspecified cirrhosis of liver; R06.03 Acute respiratory distress
CPT/HCPCS: 32555; 36415; 36556; 36573; 36589; 36600; 71045; 71275; 72141; 72146; 72148; 72170; 74176; 76604; 76937; 77001; 78582; 80048; 80053; 80061; 82040; 82140; 82375; 82550; 82805; 82962; 83036; 83615; 83735; 83880; 84145; 84443; 84478; 84484; 85025; 85027; 85651; 86140; 86705; 86709; 86803; 87077; 87186; 87340; 87426; 93005; 93306; 93970; 94640; 94660; 94664; 97162; 97530; 99291; A9558; C1725; C1752; C1769; J0360; J0696; J0878; J1200; J1250; J1644; J1650; J1815; J1956; J2060; J2270; J2405; J2920; J3490; J7060; J7608; Q0163; Q9967